=== PATIENT | female | born 1935 | race Caucasian/White ===

== ENCOUNTER 2024-02-07 03:58 | Inpatient (IN) | payer MEDICARE, OTHER, SELFPAY ==
[2024-02-07] VITALS (7 sets, daily range): BP systolic 118–159; BP diastolic 67–107; BMI 33.2; BMI 32.8
--- NOTE | 2024-02-07 01:33 | ED.GENMED ---
History of Present Illness
General
Chief Complaint: Fainting Sensation
Time Seen by Provider: 02/07/24 01:33
History of Present Illness
History of Present Illness:
HPI: The patient was walking with family at their house and felt dizzy. She also had been having left hip pain for which daughter was given Advil. She fell to the ground and had dramatically worse left hip pain. There is some degree of chronic
shortness of breath but does not usually need oxygen. She does have a history of COPD and heart failure. Daughter was right there and states she did not strike her head.
EXAM:
GENERAL: Well appearing in no distress
CERVICAL SPINE: No midline c-spine tenderness with excellent AROM
HEAD: No evidence of craniofacial trauma
CHEST: No chest wall tenderness, normal heart sounds, device noted left anterior chest wall
LUNGS: Equal lung sounds, mild respiratory distress, decreased breath sounds equally
ABDOMEN: No abdominal tenderness, no peritoneal signs
EXTREMITIES: Markedly decreased active range of motion at the left hip, severe pain with passive range of motion at the left hip into rotation, left lower extremity is shortened
NEURO: Excellent strength all extremities, appropriate mental status, normal speech/language
TIME OF INITIAL ENCOUNTER: 1:30 AM
NUMBER AND COMPLEXITY OF PROBLEMS ADDRESSED AT THE ENCOUNTER
� Chronic conditions affecting care: CHF, COPD, aortic stenosis, atrial fibrillation
� Acute Exacerbation and/or Progression of Chronic Illness: This is an acute problem
� Differential Diagnosis includes: COPD exacerbation, hip fracture, volume overload
AMOUNT AND/OR COMPLEXITY OF DATA TO BE REVIEWED AND ANALYZED
� I performed an independent evaluation of and my interpretation is:
EKG: A paced, ventricular rate of 70
CT:
X-rays: X-ray of the chest shows cardiomegaly with some mild pulmonary vascular congestion, left hip x-ray shows femoral neck fracture with displacement
Laboratory Studies: CBC unremarkable
Other:
� Review of other/old records: Patient was admitted with COPD exacerbation was hypoxic at that time also related to COVID-19 this past July
� Clinical information was obtained by an independent historian: Spoke to family at bedside
� Prescriptions/Medications Considered but not given:
� Further testing considered but not performed:
RISK OF COMPLICATIONS AND/OR MORBIDITY OR MORTALITY OF PATIENT MANAGEMENT
� Social determinants of health affecting care: Lives at home with family
� Discussion with other providers: Notified Dr. Elba Shah and likely OR on Tuesday. Dr. Ivey for admission at 2:30 AM.
� Escalation of care including admission/observation vs risk of discharge considered: The patient is found to have a left-sided femoral neck fracture. CBC unremarkable. Although she is on Eliquis daughter states she did not
strike her head. Ordered morphine for pain. She is borderline hypoxic with decreased breath sounds and has history of COPD�DuoNeb was given.
Past History
Past History
ED Past Medical History: CAD, HTN, Hypercholesterolemia and Valvular disease
ED Past Surgical History: Cardiac
Patient has exhibited threatening behavior?: No
PSI?: No
Social History
Tobacco: Non-smoker
Alcohol: None
Drug: None
Phy Exam
Physical Exam
Physical Exam:
See HPI
Course
Orders/Labs/Results
Orders:
Orders
02/07/24 01:29
Hip, Left 2-3 Views [CR Hip - LT w/wo Pel 2-3 Vw*] Urgent
Comment:
Reason For Exam: pain s/p fall
Include a pelvis x-ray?: Yes
02/07/24 01:38
Ipratropium/Albuterol Sulfate [Duoneb] 3 ml INH R NOW ONE
CR Chest Single View Urgent
Reason For Exam: sob h/o copd
02/07/24 01:39
0.9% Sodium Chloride 500 ml [Nss] 500 ml IV BOLUS
02/07/24 01:40
Electrocardiogram (*1) Urgent
Reason for Study: Shortness of Breath
EKG- Treatment ONCE
02/07/24 01:45
Complete Blood Count/With Diff Urgent
02/07/24 02:19
Morphine Sulfate 2 mg IV NOW STA
Ondansetron Injectable [Zofran] 4 mg IV NOW STA
02/07/24 03:18
Basic Metabolic Panel Urgent
Magnesium Urgent
NT-proBNP Urgent
02/07/24 03:43
Admit/Transfer Patient As Directed
Co-Sign Provider:
Level of Care: Inpatient admission
Assign to:: Telemetry
Physician / Group: [facility]
Diagnosis: L Femur Fracture, Fall
Reason for Telemetry: Arrhythmia
Date to Stop Telemetry: 02/10/24
Time to Stop Telemetry: 11:00
Reason for Hospitalization: L Femur Fracture, Fall
Expected length of stay greater than two midnights?: Yes
ELOS- Estimated Length of Stay in days: 4
I certify the patient meets the requirements for IP care: Yes
02/07/24 03:45
Code Status As Directed
Resuscitation Status: Full Code
02/07/24 05:43
Albuterol Nebs [Ventolin Nebules] 2.5 mg INH R Q4HPRN PRN
Dextrose 50%-Water [Dextrose 50% Syringe] 12.5 grams IV [id number] PRN
Glucagon [GlucaGen] 1 mg IM PRN PRN
02/07/24 05:43
Bedside Glucose Monitoring As Directed
Frequency: AC&HS
Additional Instructions:: Change to q6h if pt on TPN, tube feeding or not eating
Bladder Scan As Directed
Follow Bladder Retention/Intermittent Cath Algorithm?: Yes
PRN if no void in __ hours: 6
Frequency: Per Retention Algorithm
If Bladder Scan Result >: 400
then:: Straight cath
EKG with chest pain [ECG as needed] As Directed
ECG as needed for:: Chest Pain
I/O [Intake/ Output] As Directed
Frequency: Per unit guidelines
Straight Cath As Directed
Frequency: Per Retention Algorithm
Additional Instructions: straight cath as needed per acute urinary retention algorithm for 24 hrs
Additional Instructions: for bladder scan greater than 400 mL
Venous Foot Pumps As Directed
Location: Bilateral feet
Vital Signs As Directed
Frequency: Per unit guidelines
Weight As Directed
Frequency: Daily
Incentive Spirometry [Rx Incentive Spirometry] [RESP] Routine
Frequency: q1h while awake
Oxygen Therapy [O2 Therapy] [RESP] Routine
Titrate/Wean O2 to maintain O2 sat greater than (%): 94
DX Deep Vein Thrombosis Video Routine
02/07/24 Breakfast
1800 calorie (15 carb) Diabetic
At Your Request: Non-Participating
02/07/24 07:00
Morphine Sulfate 2 mg IV Q4HPRN PRN
02/07/24 07:04
Basic Metabolic Panel IN AM
Complete Blood Count/No Diff IN AM
Glycohemoglobin (HgbA1c) IN AM
02/07/24 07:30
Insulin Aspart Corrective Low [Novolog Flexpen-Low Resistance] See Protocol SC AC
02/07/24 08:00
Acetaminophen [Tylenol] 1,000 mg PO TID
Budesonide [Pulmicort] 0.5 mg INH R BID
Docusate Sodium [Colace] 100 mg PO BID
Ipratropium/Albuterol Sulfate [Duoneb] 3 ml INH R QID
Metoprolol Xl [Toprol Xl] 25 mg PO BID
Polyethylene Glycol Powder [Miralax] 17 grams PO DAILY PRN
Potassium Chloride [KCl] 20 meq PO BID
02/07/24 16:00
Furosemide [Lasix] 20 mg PO BID@0800,1600
02/07/24 18:00
Montelukast Sodium [Singulair] 10 mg PO QPM
02/07/24 22:00
Sennosides [Senokot] 17.2 mg PO HS
02/10/24 11:00
DC Protocol for Telemetry ONCE
Abnormal Lab Results
02/07/24 02/07/24
01:45 03:18
RDW 15.3 H %
(11.5-14.5)
MPV 11.2 H fL
(7.4-10.4)
Abs Immat Gran (auto) 0.1 H 10^3/uL
(0-0.05)
Absolute Lymphs (auto) 1.0 L 10^3/uL
(1.2-3.4)
Immature Gran % 1.1 H %
(0-0.5)
Lymphocytes % 15.9 L %
(20.5-51.1)
Chloride 108 H mmol/L
(98-107)
BUN 27 H mg/dl
(7-17)
Glucose 146 H mg/dl
(70-99)
02/07/24 01:45
02/07/24 03:18
Vital Signs
Initial and Last Documented VS:
Initial Vital Signs
Temp Pulse Resp BP Pulse Ox
94.8 F L 70 22 159/107 94
02/07/24 01:31 02/07/24 01:31 02/07/24 01:31 02/07/24 01:31 02/07/24 01:31
Last Documented Vital Signs
Temp Pulse Resp BP Pulse Ox
97.6 F 77 18 134/75 96
02/09/24 07:20 02/09/24 08:06 02/09/24 08:06 02/09/24 07:20 02/09/24 08:06
*Critical Care Note
Total Time (30-74mins, 75-104mins- exclusive of procedures): Not Applicable
ED Attending Note
-
Portions of this chart may have been created with voice recognition software.� Occasional wrong word or��sound alike� substitutions may have occurred due to the inherent limitations of voice recognition software.
Discharge Plan
Departure
Patient Disposition: Admit
Date of Disposition: 02/07/24
Time of Disposition: 02:30
Presentation/result/management discussed w/ accepting MD/DO: Hospitalist
Discharge Problem:
Closed fracture of left hip
Interventions
Interventions:
*Risk Screen - Suicide Last Done: 02/07/24 05:45
*General Assessment Last Done: 02/07/24 01:31
*Neglect/Abuse Screening Last Done: 02/07/24 01:31
ED- Fall Risk Assessment Last Done: 02/07/24 01:41
*ED COVID-19 Vaccine History Last Done: 02/07/24 01:41
*Nursing Disposition Last Done: 02/07/24 05:30
ED- Cardiac Assessment Last Done: 02/07/24 02:54
ED- Neurological Assessment Last Done: 02/07/24 02:54
Discharge Date and Time
Discharge Date/Time: 02/07/24 05:30
[2024-02-07 01:51] LABS: % Basophils 1.1 % (0-2); % Eosinophils 1.4 % (0-6); % Immature Granulocytes 1.1 % (0-0.5); % Lymphocytes 15.9 % (20.5-51.1); % Monocytes 6.1 % (1.7-9.3); % Neutrophils 74.4 % (42.2-75.2); Absolute Basophils 0.1 10^3/uL (0-0.2); Absolute Eosinophils 0.1 10^3/uL (0-0.7); Absolute Immature Granulocytes 0.1 10^3/uL (0-0.05); Absolute Monocytes 0.4 10^3/uL (0.1-0.6); Absolute Neutrophils 4.8 10^3/uL (1.4-6.5); Hematocrit 41.8 % (37.0-47.0); Hemoglobin 14.2 g/dL (12.0-16.0); Mean Corpuscular Hgb 29.8 pg (27.0-31.0); Mean Corpuscular Volume 87.6 fL (81.0-99.0); Mean Platelet Volume 11.2 fL (7.4-10.4); Nucleated Red Blood Cells % 0 %; Platelet Count 178 10^3/uL (130-400); Red Blood Cell Count 4.77 10^6/uL (4.20-5.40); Red Cell Dist. Width 15.3 % (11.5-14.5); White Blood Cell Count 6.4 10^3/uL (4.8-10.8)
--- NOTE | 2024-02-07 02:55 | HPS.HSE ---
Family Physician
-
Family Physician: Matthieu Isaac
Chief Complaint
-
L Hip Pain s/p Fall
History of Present Illness
Patient is an 88y F with PMH significant for COPD, ASCVD, DM-II and obesity who presents to ED complaining of left hip pain s/p fall at home this evening. History obtained from patient and family at the bedside with family serving as
spanish medical interpreter. Family states that patient has been complaining of discomfort in the L hip / buttock region for the past 2 days or so. This evening she was ambulating from the bathroom when she lost her balance and fell to the L. Daughter was
present and helped to an extent such that patient did not fall very hard to the ground. She did not strike her head or lose consciousness. She did land on her L side / hip and immediately complained of pain in this area.
Daughter notes that patient was pale appearing and sweaty after the fall.
She denies any recent issues with fevers / chills, N/V/D or complaints.
Patient has been complaining of increased SOB over the past week or so. Her weight has not changed and she has no significant cough or other symptoms.
Medical History
Past Medical History
Past Medical History: Reports Other
Additional Past Medical History:
ASCVD
Chronic HFrEF
Paroxysmal Atrial Fibrillation
s/p TAVR
Hypertension
COPD
DM-II
CKD III
Obesity
Non-Melanoma Skin Cancer
Past Surgical History: Reports Other
Additional Past Surgical History:
TAVR
PPM Placement
PTCA with Stents
Bilateral TKA
Appendectomy
Skin Cancer Excision
Social History
Tobacco: Non-smoker
Alcohol: None
Drug: None
Family History
Family History: Not pertinent
Allergies / Home Medications
Allergies reflects when Allergies were last updated in [facility].
Home Medications with original date entered in [facility]
Allergy/Medication List:
Allergies
Allergy/AdvReac Type Severity Reaction Status Date / Time
dapagliflozin [From [facility]] Allergy Blisters Verified 02/07/24 01:30
latex Allergy Rash Verified 02/07/24 01:30
Penicillins Allergy Passed out Verified 02/07/24 01:30
Home Medications
yseutp-ztoezjze-ujywcdg 36,000-114,000-180,000 unit capsule,delay rel (Creon) 1 cap PO QPM Gastrointestinal issue 05/30/22
glipizide 5 mg tablet 5 mg PO . AND TUESDAY Diabetes 12/22/22
albuterol sulfate 90 mcg/actuation breath activated powder inhaler 2 inh inhalation R Q6 PRN sob/wheezing 08/12/23
budesonide 0.5 mg/2 mL suspension for nebulization (Pulmicort) 0.5 mg inhalation BID Lung/Breathing Issues 08/12/23
furosemide 20 mg tablet 20 mg PO BID Fluid Retention/Swelling 08/12/23
levocetirizine 5 mg tablet 5 mg PO QPM Allergies 08/12/23
montelukast 10 mg tablet 10 mg PO QPM Lung/Breathing Issues 08/12/23
potassium chloride 10 mEq capsule,extended release 20 meq PO BID Electrolyte Repletion 08/12/23
simvastatin 40 mg tablet 40 mg PO .QPM AND TUESDAY High Cholesterol 08/12/23
apixaban 5 mg tablet (Eliquis) 2.5 mg PO BID Blood clot prevention/tx 02/07/24
metoprolol succinate 50 mg tablet,extended release 24 hr 25 mg PO BID Blood pressure 02/07/24
Review of Systems
-
History Source: Patient
A 12 point ROS was completed and negative except as noted: Yes
Constitutional: Denies Fever or Chills
Respiratory: Reports Trouble Breathing; Denies Cough
Cardiac: Denies Chest Pain or Palpitations
Abdomen/GI: Denies Abdominal Pain, Nausea, Vomiting or Diarrhea
: Denies Dysuria or Frequency
Musculoskeletal: Reports Joint Pain
Neurological: Reports Dizzy
Psych: Denies Depression or Anxiety
Physical Exam
Vital Signs
Vital Signs
Temp Pulse Resp BP Pulse Ox
94.8 F L 70 22 159/107 94
02/07/24 01:31 02/07/24 01:31 02/07/24 01:31 02/07/24 01:31 02/07/24 01:31
Physical Exam
General: Other (88y F in mild distress due to pain.)
HEENT: Moist mucous membranes, PERRLA and Other (No JVD.)
Respiratory: Other (Decreased BS at bases - otherwise clear. No wheezing or rales.)
Cardiac: S1/S2, Regular Rhythm and Murmur (II/ MARY)
GI: Soft, Non Tender, Non Distended and Normal Bowel Sounds
Musculoskeletal: Other (LLE externally rotated. Tenderness L hip / groin.)
Neuro: Awake and Alert
Laboratory Results
-
02/07/24 01:45
Impression/Plan
-
A/P: Patient is an 88y F with PMH significant for ASCVD, CKD and DM-II who presents to ED complaining of L hip pain s/p fall.
Left Femur Fracture
- Admit for further evaluation and treatment.
- Pain control / bedrest overnight.
- Ortho eval in the AM for operative repair.
- Hold Eliquis.
- Patient is at increased risk for complications related to surgery / anesthesia on the basis of advanced age and multiple medical comorbidities.
- However, benefits of the planned procedure outweigh the potential risks and patient is OK to proceed to OR without additional pre-op evaluation(s).
- Post-OP PT, OT, DVT prophylaxis, etc.
Fall at Home
- Unclear mechanism of fall based on history.
- Described diaphoresis / clamminess after the fall may have been on the basis of pain?
- Monitor on tele overnight.
- Monitor for any new / recurrent symptoms.
ASCVD
Paroxysmal A-Fib
Severe s/p TAVR
- Stable. Continue current CV med regimen excepting Eliquis.
- Follow for any complaints of chest pain, etc.
Chronic HFrEF
- Stable. Patient does not appear grossly volume overloaded.
- Daughter notes that her daily weights at home have remained stable.
- Continues usual diuretic regimen.
- Follow I/Os, daily weights, etc.
COPD
- No evidence of acute exacerbation / no active wheezing.
- Patient with increased subjective dyspnea recently - ? mild HF v COPD.
- Nebs ATC and PRN.
- Follow for any new / worsening symptoms.
DM-II
- Stable. Hold PO medications (only on glipizide twice weekly?)
- Follow glucose and cover with SSI as needed.
- Update A1C.
Constipation
- Patient with noted rectal stool ball on pelvic imaging.
- Bowel regimen.
- Avoid disimpaction / enemas for now given femur fracture.
- Follow for positive results.
DVT Prophylaxis; Foot Pumps
Code Status: Full
[2024-02-07] MEDS: ZOFRAN 4 MG IV (03:10)
[2024-02-07] MEDS: MORPHINE SULFATE 2 MG IV ×2 (03:10→07:20)
[2024-02-07] MEDS: DUONEB 3 ML INH ×5 (03:16→19:39)
[2024-02-07] MEDS: NSS 500 IV (03:16)
[2024-02-07 03:51] LABS: Blood Urea Nitrogen 27 mg/dl (7-17); Calcium 8.8 mg/dl (8.4-10.2); Carbon Dioxide 28 mmol/L (22-30); Chloride 108 mmol/L (98-107); Estimated Creatinine Clearance 36 ml/min; Glucose 146 mg/dl (70-99); Potassium 3.8 mmol/L (3.5-5.1); Sodium 141 mmol/L (135-145); eGFR 54.19
[2024-02-07 04:08] LABS: NT-proBNP 13200 pg/ml
[2024-02-07] MEDS: LASIX 20 MG IV (04:54)
--- NOTE | 2024-02-07 05:45 | PTCARENOTE ---
Pt arrived 2S via stretcher at 0545 from ED. 4 L O2. Assist x3 tack puller machine from stretcher. Pt is Barbadian speaking only. Daughter is at the bedside, and was able to assist in admission questions. Pt lives with daughter in an apartment.
--- NOTE | 2024-02-07 05:46 | W.PN.UPDATE ---
Update Note
Progress Note Update
With Left femoral neck fracture
Will need left hip partial replacement
Due to Eliquis will delay surgery until tomorrow
Please hold eliquis effective immediately
Thanks
GGMD
[2024-02-07 07:26] LABS: Hematocrit 43.8 % (37.0-47.0); Mean Corpuscular Hgb 29.2 pg (27.0-31.0); Mean Corpuscular Volume 91.4 fL (81.0-99.0); Mean Platelet Volume 11.7 fL (7.4-10.4); Platelet Count 134 10^3/uL (130-400); Red Blood Cell Count 4.79 10^6/uL (4.20-5.40); Red Cell Dist. Width 15.3 % (11.5-14.5); White Blood Cell Count 10.3 10^3/uL (4.8-10.8)
[2024-02-07] MEDS: PULMICORT 0.5 MG INH ×2 (08:08→19:39)
[2024-02-07 08:10] LABS: Blood Urea Nitrogen 26 mg/dl (7-17); Calcium 8.7 mg/dl (8.4-10.2); Carbon Dioxide 30 mmol/L (22-30); Chloride 106 mmol/L (98-107); Estimated Creatinine Clearance 32 ml/min; Glucose 138 mg/dl (70-99); Potassium 3.8 mmol/L (3.5-5.1); Sodium 143 mmol/L (135-145); eGFR 48.33
[2024-02-07 08:23] LABS: Glucose - Point of Care 173 mg/dl (70-99)
[2024-02-07 08:39] LABS: Glycohemoglobin (HgbA1c) 6.4 % (4.0-5.6)
[2024-02-07] MEDS: TOPROL XL 25 MG PO ×2 (09:37→20:55)
[2024-02-07] MEDS: KCL 20 MEQ PO ×2 (09:38→20:54)
[2024-02-07] MEDS: COLACE 100 MG PO ×2 (09:39→22:12)
[2024-02-07] MEDS: NOVOLOG FLEXPEN-LOW RESISTANCE SC ×2 (09:59→12:02)
[2024-02-07] MEDS: TYLENOL 1000 MG PO ×3 (10:00→22:12)
[2024-02-07 11:33] LABS: Glucose - Point of Care 142 mg/dl (70-99)
--- NOTE | 2024-02-07 16:11 | W.PN.HOSP.TC ---
Today's Communication/Plan
-
Hold Eliquis anticipating hip surgery in AM.
Monitor volume status closely
Monitor renal function.
Adjust analgesic regimen as required.
Assessment / Plan
Assessment / Plan
Impression:
Patient is an 88y F with PMH significant for ASCVD, CKD and DM-II who presents to ED complaining of L hip pain s/p fall.
Left hip fracture secondary to mechanical fall and osteoporosis
Status post mechanical fall at home
Conditions prior to admission:
1. Severe aortic stenosis status post TAVR.
2. Chronic CHF, reduced EF.
3. Paroxysmal atrial fibrillation.
4. Anticoagulation with Eliquis.
5. Sick sinus syndrome with pacemaker in place.
6. Severe COPD.
7. CAD.
8. Essential hypertension.
9. Diabetes type 2.
10. Dyslipidemia.
11. COVID-19
Plan
Left Femur Fracture
- Admit for further evaluation and treatment.
- Pain control / bedrest overnight.
- Ortho eval in the AM for operative repair.
- Hold Eliquis.
- Patient is at increased risk for complications related to surgery / anesthesia on the basis of advanced age and multiple medical comorbidities.
- However, benefits of the planned procedure outweigh the potential risks and patient is OK to proceed to OR without additional pre-op evaluation(s).
- Post-OP PT, OT, DVT prophylaxis, etc.
Fall at Home
- Unclear mechanism of fall based on history.
- Described diaphoresis / clamminess after the fall may have been on the basis of pain?
- Monitor on tele overnight.
- Monitor for any new / recurrent symptoms.
ASCVD
Paroxysmal A-Fib
Severe s/p TAVR
- Stable. Continue current CV med regimen excepting Eliquis.
- Follow for any complaints of chest pain, etc.
Chronic HFrEF
- Stable. Patient does not appear grossly volume overloaded.
- Daughter notes that her daily weights at home have remained stable.
- Continues usual diuretic regimen.
- Follow I/Os, daily weights, etc.
COPD
- No evidence of acute exacerbation / no active wheezing.
- Patient with increased subjective dyspnea recently - ? mild HF v COPD.
- Nebs ATC and PRN.
- Follow for any new / worsening symptoms.
DM-II
- Stable. Hold PO medications (only on glipizide twice weekly?)
- Follow glucose and cover with SSI as needed.
- Hemoglobin A1c 6.4
Constipation
- Patient with noted rectal stool ball on pelvic imaging.
- Bowel regimen.
- Avoid disimpaction / enemas for now given femur fracture.
- Follow for positive results.
DVT Prophylaxis; Foot Pumps
Code Status: Full
Anticipated Discharge: 24 - 48 hours
Subjective/Interval History
-
Date of Service: February 07, 2024
Objective Data
-
Labs:
Laboratory Results
02/07/24
07:04
WBC 10.3
Hgb 14.0
Hct 43.8
Plt Count 134 D
Sodium 143
Potassium 3.8
Chloride 106
Carbon Dioxide 30
BUN 26 H
Creatinine 1.1 H
Glucose 138 H
Calcium 8.7
Vital Signs:
Vital Signs
Temp Pulse Resp BP Pulse Ox
98.1 F 70 18 124/70 95
02/07/24 15:10 02/07/24 16:04 02/07/24 16:04 02/07/24 15:10 02/07/24 16:04
Physical Exam
-
General: Well Developed and No Apparent Distress
HEENT: Normocephalic, Atraumatic and Moist Mucous Membranes
Respiratory: Rhonchi; Negative Wheezes
Cardiac: Regular Rhythm and S1/S2; Negative Murmur, Rub or Gallop
GI: Soft, Nontender, Nondistended and Normal Bowel Sounds; Negative Organomegaly
Rectal: Deferred by Provider
Musculoskeletal: No Clubbing, No Cyanosis and No Edema
Skin: Negative Rash
Neuro: Awake, Alert, Oriented (Name only) and Nonfocal/Grossly Intact
--- NOTE | 2024-02-07 16:17 | CM ---
Met with patient for initial assessment. Patient only speaks Argentine and has some apparent confusion. Reportedly, daughter was in hospital since 1:30 am in ER. She went home to get some sleep and will return today. This CM did not want to disturb
daughter at home. Will check to see if daughter returned prior to CM leaving.
[2024-02-07] MEDS: LASIX 20 MG PO (16:35)
[2024-02-07 17:01] LABS: Glucose - Point of Care 214 mg/dl (70-99)
--- NOTE | 2024-02-07 17:13 | CM ---
Addendum entered by Chris Mathur 02/07/24 17:18:
[facility] is [facility] in [place] and PCP is Dr. Matthieu Isaac.
Original Note:
Met with daughter and completed initial assessment. Patient has been living with daughter and S-I-L for approximately 3 years. They live in a 1 story 3rd floor condo with no stairs to enter, elevator building. Patient uses a RW for mobility, no
in-home services. 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 [employer] WHEEL [employer]SEM[employer] patient required assistance with ADL's. Anticipate SNF after discharge. [employer] [place] [id number].
[2024-02-07] MEDS: SINGULAIR 10 MG PO (17:34)
[2024-02-07 17:48] LABS: Glucose - Point of Care 209 mg/dl (70-99)
[2024-02-07] MEDS: NOVOLOG FLEXPEN-LOW RESISTANCE 2 UNITS SC (17:48)
[2024-02-07] MEDS: LUMIGAN 0.01% 1 DROP OPHTH (20:55)
[2024-02-07] MEDS: COSOPT EYE DROPS 1 DROP OPHTH (20:55)
[2024-02-07] MEDS: PRED FORTE 1% EYE DROPS 2 DROP OPHTH (20:56)
[2024-02-07 21:25] LABS: Glucose - Point of Care 183 mg/dl (70-99)
[2024-02-07] MEDS: SENOKOT 17.1999999999999993 MG PO (22:12)
[2024-02-08] VITALS (10 sets, daily range): BP systolic 100–163; BP diastolic 65–93; BMI 33.7
--- NOTE | 2024-02-08 03:46 | DOWNTIME ---
There was a [employer] Client [employer] Operator Downtime on 02/08/2024 from 0100 to 02/08/2024 at 0337. Downtime documentation of patient's care, including medication administrations, has been reconciled in the electronic record per guidelines. Refer to the
patient's paper chart under the miscellaneous tab to see printed paper medication records and downtime forms.
--- NOTE | 2024-02-08 04:51 | PTCARENOTE ---
bladder scanned for decreased urine output 167ML. pt with scant amount of [place] urine in suction cansiter from purewick with one episode of small void on disposable pad.
[2024-02-08 05:15] LABS: Glucose - Point of Care 161 mg/dl (70-99)
[2024-02-08] MEDS: NOVOLOG FLEXPEN-LOW RESISTANCE 1 UNITS SC ×2 (05:57→12:05)
[2024-02-08] MEDS: DUONEB 3 ML INH ×3 (06:17→19:08)
[2024-02-08] MEDS: PULMICORT 0.5 MG INH ×2 (06:17→19:14)
[2024-02-08 08:13] LABS: % Basophils 0.8 % (0-2); % Eosinophils 5.4 % (0-6); % Immature Granulocytes 0.4 % (0-0.5); % Lymphocytes 7.2 % (20.5-51.1); % Neutrophils 82.2 % (42.2-75.2); Absolute Basophils 0.1 10^3/uL (0-0.2); Absolute Eosinophils 0.5 10^3/uL (0-0.7); Absolute Lymphocytes 0.7 10^3/uL (1.2-3.4); Absolute Monocytes 0.4 10^3/uL (0.1-0.6); Absolute Neutrophils 7.5 10^3/uL (1.4-6.5); Hemoglobin 13.9 g/dL (12.0-16.0); Mean Corp Hgb Conc. 32.3 g/dL (33.0-37.0); Mean Corpuscular Hgb 29.8 pg (27.0-31.0); Mean Corpuscular Volume 92.1 fL (81.0-99.0); Mean Platelet Volume 12.4 fL (7.4-10.4); Nucleated Red Blood Cells % 0 %; Platelet Count 124 10^3/uL (130-400); Red Blood Cell Count 4.67 10^6/uL (4.20-5.40); White Blood Cell Count 9.2 10^3/uL (4.8-10.8)
[2024-02-08] MEDS: TYLENOL 1000 MG PO ×2 (08:38→21:37)
[2024-02-08] MEDS: KCL 20 MEQ PO (08:38)
[2024-02-08] MEDS: COLACE 100 MG PO ×2 (08:38→21:33)
[2024-02-08] MEDS: TOPROL XL 25 MG PO (08:38)
--- NOTE | 2024-02-08 09:08 | W.PN.HOSP.TC ---
Today's Communication/Plan
-
benefits of the planned procedure outweigh the potential risks and patient is OK to proceed to OR without additional pre-op evaluation(s).
Revised cardiac risk index RCRI:
� Intermediate risk surgery.
� Independent predictors of major cardiac complications: Heart failure, diabetes.
� Rate for major cardiac complications: 2.4-5.4%
Respiratory and volume status optimized for surgical intervention
Risk and benefits of surgical intervention discussed with patient's daughter at the bedside
Assessment / Plan
Assessment / Plan
Impression:
Patient is an 88y F with PMH significant for ASCVD, CKD and DM-II who presents to ED complaining of L hip pain s/p fall.
Left hip fracture secondary to mechanical fall and osteoporosis
Status post mechanical fall at home
Acute on chronic CHF reduced EF
Acute hypoxic respiratory failure secondary to above
Conditions prior to admission:
1. Severe aortic stenosis status post TAVR.
2. Chronic CHF, reduced EF.
3. Paroxysmal atrial fibrillation.
4. Anticoagulation with Eliquis.
5. Sick sinus syndrome with pacemaker in place.
6. Severe COPD.
7. CAD.
8. Essential hypertension.
9. Diabetes type 2.
10. Dyslipidemia.
11. COVID-19
Plan
Left Femur Fracture
- Admit for further evaluation and treatment.
- Pain control / bedrest overnight.
- Ortho eval in the AM for operative repair.
- Hold Eliquis.
- Patient is at increased risk for complications related to surgery / anesthesia on the basis of advanced age and multiple medical comorbidities.
- However, benefits of the planned procedure outweigh the potential risks and patient is OK to proceed to OR without additional pre-op evaluation(s).
Revised cardiac risk index RCRI:
� Intermediate risk surgery.
� Independent predictors of major cardiac complications: Heart failure, diabetes.
� Rate for major cardiac complications between 2.4-5.4%
� Volume and respiratory status optimized for surgical intervention.
Fall at Home
- Unclear mechanism of fall based on history.
- Described diaphoresis / clamminess after the fall may have been on the basis of pain?
- Monitor on tele overnight.
- Monitor for any new / recurrent symptoms.
ASCVD
Paroxysmal A-Fib
Severe s/p TAVR
- Stable. Continue current CV med regimen excepting Eliquis.
- Follow for any complaints of chest pain, etc.
Acute on chronic chronic HFrEF
Pulmonary edema
Acute hypoxic respiratory failure secondary to above
Exam with bilateral rails
Chest x-ray with increased vascularity bilaterally consistent with pulmonary edema
Patient is not on home O2, although has increased oxygen requirements up to 2 L
She was given additional dose of IV Lasix on 02/06.
Continue oral Lasix as scheduled.
Volume and respiratory status optimized for surgical intervention.
COPD
- No evidence of acute exacerbation / no active wheezing.
- Patient with increased subjective dyspnea recently - ? mild HF v COPD.
- Nebs ATC and PRN.
- Follow for any new / worsening symptoms.
DM-II
- Stable. Hold PO medications (only on glipizide twice weekly?)
- Follow glucose and cover with SSI as needed.
- Hemoglobin A1c 6.4
Constipation
- Patient with noted rectal stool ball on pelvic imaging.
- Bowel regimen.
- Avoid disimpaction / enemas for now given femur fracture.
- Follow for positive results.
DVT Prophylaxis; Foot Pumps
Code Status: Full
Anticipated Discharge: > 48 hours
Subjective/Interval History
-
Date of Service: February 08, 2024
Objective Data
-
Labs:
Laboratory Results
02/08/24
06:54
WBC 9.2
Hgb 13.9
Hct 43.0
Plt Count 124 L
Sodium Pending
Potassium Pending
Chloride Pending
Carbon Dioxide Pending
BUN Pending
Creatinine Pending
Glucose Pending
Calcium Pending
Vital Signs:
Vital Signs
Temp Pulse Resp BP Pulse Ox
98.6 F 72 14 163/89 97
02/08/24 07:33 02/08/24 07:33 02/08/24 07:33 02/08/24 07:33 02/08/24 07:33
I&O
02/07/24 02/08/24 02/09/24
06:59 06:59 06:59
Intake Total 1140 / 1140
Output Total 500 / 500
Balance 640 / 640
Physical Exam
-
General: Well Developed and No Apparent Distress
HEENT: Normocephalic, Atraumatic and Moist Mucous Membranes
Respiratory: Rhonchi; Negative Wheezes
Cardiac: Regular Rhythm and S1/S2; Negative Murmur, Rub or Gallop
GI: Soft, Nontender, Nondistended and Normal Bowel Sounds; Negative Organomegaly
Rectal: Deferred by Provider
Musculoskeletal: No Clubbing, No Cyanosis and No Edema
Skin: Negative Rash
Neuro: Awake, Alert, Oriented (Name only) and Nonfocal/Grossly Intact
[2024-02-08] MEDS: LASIX 20 MG PO (09:24)
[2024-02-08 09:48] LABS: Blood Urea Nitrogen 37 mg/dl (7-17); Carbon Dioxide 24 mmol/L (22-30); Chloride 106 mmol/L (98-107); Estimated Creatinine Clearance 19 ml/min; Glucose 132 mg/dl (70-99); Potassium 4.1 mmol/L (3.5-5.1); Sodium 139 mmol/L (135-145); eGFR 25.08
--- NOTE | 2024-02-08 10:16 | PN.CDI ---
CDI
- -
CDI:
Physician Documentation Request
Admit Date: 02/07/24 03:58
Dear Doctor Emery,
H&P list patient has a past medical history of CKD III.
Patient diagnosed with acute on chronic CHF with IV lasix given on 02/06.
Creatinine results:
Laboratory Tests
02/07/24 02/07/24 02/08/24
03:18 07:04 06:54
Creatinine 1.0 1.1 H 1.9 H
Please clarify which of the following accurately represents the patient's renal status:
____ - Acute kidney injury on CKD III
____ - CKD III only
____ - Other
Criteria for JAVIER*
1 Increase in serum creatinine by > or = to 0.3 mg/dL (> or = to 26.5 micromol/L) within 48 hours, OR
2 Increase in serum creatinine to > or = to 1.5 times baseline, which is known or presumed to have occurred within 7 days, OR
3 Urine volume < 0.5 nL/kg/hour for six hours
Use of terms such as suspected, likely, concern for, or probable (associated with a specific diagnosis that is being evaluated, monitored, or treated as if it exists) are acceptable and can be coded in the inpatient setting, when documented at the
time of discharge.
Thank you,
Emilia Arana RN, BSN
CDI Specialist
tiger text
Please use your independent medical judgment in providing your response.
*Source: Kidney Disease: Improving Global Outcomes (KDIGO) 2012
--- NOTE | 2024-02-08 10:20 | PN.CDI ---
CDI
- -
CDI:
Physician Documentation Request
Admit Date: 02/07/24 03:58
Dear Doctor Emery,
02/07 progress notes states ' Acute on chronic HFrEF. Pulmonary edema, acute hypoxic respiratory failure secondary to above.... patient is not on home O2, although has increased oxygen requirements up to 2 L'
Recognized standard criteria for respiratory failure includes:
(Source: [employer] Hospitalist Jun 2013)
ABGs (1 or more)
�PO2 <60 or RA SpO2 <91%
�PcO2 >50 and pH <7.35
�pO2 decrease or pcO2 increase by 10 mmHg from baseline if known Symptoms:
�Tachypnea, SOB, dyspnea
�Pallor or cyanosis
�Anxiety or restlessness
�Use of accessory muscles
�Retractions (grunting in newborns)
�Unable to speak in complete sentences
Supplemental O2 requirement of 40% (5LPM) or more Intubation is not required
Based on the above information and the recognized standard for respiratory failure could you please verify this diagnoses is still accurate and reflective of the patient�s condition to ensure quality of the medical record.
Please clarify in the Progress Notes:
�Respiratory failure is/was present and is a clinical diagnosis based on (please include this additional support in the medical record)
�After study respiratory failure has been ruled out
�Other
Use of terms such as suspected, likely, concern for, or probable (associated with a specific diagnosis that is being evaluated, monitored, or treated as if it exists) are acceptable and can be coded in the inpatient setting, when documented at the
time of discharge.
Thank you,
Emilia Arana RN, BSN
CDI Specialist
tiger text
Please use your independent medical judgment in providing your response.
--- NOTE | 2024-02-08 11:02 | CM ---
Met with patient's daughter at the bedside to discuss discharge planning. Per RN and patient's daughter, patient is going to surgery today
[facility] [address] IMM benefit explained; form signed @[phone]
Daughter's rehab preference is [facility]. If patient does not meet Acute Rehab criteria, SNF preferences are [facility], [facility] and [facility]; referrals sent via [facility]
[2024-02-08 12:03] LABS: Glucose - Point of Care 162 mg/dl (70-99)
[2024-02-08] MEDS: DUONEB INH (15:05)
[2024-02-08] MEDS: TYLENOL PO (16:00)
[2024-02-08 16:08] LABS: Glucose - Point of Care 122 mg/dl (70-99)
[2024-02-08] MEDS: NOVOLOG FLEXPEN-LOW RESISTANCE SC (18:30)
[2024-02-08 18:41] LABS: Glucose - Point of Care 157 mg/dl (70-99)
[2024-02-08] MEDS: SINGULAIR PO (20:00)
[2024-02-08] MEDS: KCL PO (20:00)
[2024-02-08] MEDS: LASIX PO (20:00)
[2024-02-08] MEDS: ELIQUIS 2.5 MG PO (21:34)
[2024-02-08] MEDS: LOPRESSOR 25 MG PO (21:35)
[2024-02-08] MEDS: LEXAPRO 10 MG PO (21:36)
[2024-02-08] MEDS: SENOKOT 17.1999999999999993 MG PO (21:36)
[2024-02-08] MEDS: PRED FORTE 1% EYE DROPS 2 DROP OPHTH (21:37)
[2024-02-08] MEDS: LUMIGAN 0.01% 1 DROP OPHTH (21:39)
[2024-02-08] MEDS: COSOPT EYE DROPS 1 DROP OPHTH (21:39)
--- NOTE | 2024-02-08 22:00 | PTCARENOTE ---
At 20:35 patient arrived from PACU on 2L O2, telemetry, Aquacell on (L) hip c/d/i; Telephone report from MEDICINE TEACHER [place] had included (L) breast excoration/dry/pink, upon assessment MASD and flat blister noted; Tylor Segovia notified as daughter
at bedside and requested additional examination; REI examined and ordered Miconazole Nitrate Antifungal cream to apply topically under left breast.
[2024-02-08] MEDS: KCL 10 MEQ PO (22:28)
[2024-02-08] MEDS: ANTIFUNGAL CLEAR 1 APPLIC TOPICAL (22:28)
[2024-02-08 22:35] LABS: Glucose - Point of Care 285 mg/dl (70-99)
[2024-02-08] MEDS: CLEOCIN 50 IV (22:43)
[2024-02-09] VITALS (9 sets, daily range): BP systolic 101–152; BP diastolic 61–93; PULSE 70–74; O2SAT 96; BMI 33.7
[2024-02-09] MEDS: CLEOCIN 50 IV ×3 (04:19→16:12)
[2024-02-09] MEDS: MORPHINE SULFATE 2 MG IV (05:27)
[2024-02-09 06:31] LABS: Hematocrit 39.2 % (37.0-47.0); Hemoglobin 12.4 g/dL (12.0-16.0)
[2024-02-09 07:01] LABS: Blood Urea Nitrogen 42 mg/dl (7-17); Carbon Dioxide 22 mmol/L (22-30); Chloride 106 mmol/L (98-107); Estimated Creatinine Clearance 28 ml/min; Glucose 196 mg/dl (70-99); Potassium 4.5 mmol/L (3.5-5.1); Sodium 137 mmol/L (135-145); eGFR 39.55
[2024-02-09 07:18] LABS: Glucose - Point of Care 169 mg/dl (70-99)
--- NOTE | 2024-02-09 07:48 | W.PN.HOSP.TC ---
Today's Communication/Plan
-
pt/ot
wean o2, cont lasix
Resume Eliquis
monitor hgb
Assessment / Plan
Assessment / Plan
Impression:
Patient is an 88y F with PMH significant for ASCVD, CKD and DM-II who presents to ED complaining of L hip pain s/p fall.
Left hip fracture secondary to mechanical fall and osteoporosis
Status post mechanical fall at home
Acute on chronic CHF reduced EF
Acute hypoxic respiratory failure secondary to above
Conditions prior to admission:
1. Severe aortic stenosis status post TAVR.
2. Chronic CHF, reduced EF.
3. Paroxysmal atrial fibrillation.
4. Anticoagulation with Eliquis.
5. Sick sinus syndrome with pacemaker in place.
6. Severe COPD.
7. CAD.
8. Essential hypertension.
9. Diabetes type 2.
10. Dyslipidemia.
11. COVID-19
Plan
Mechanical Fall
Left Femur Fracture
S/p Lip Hip Replacement
-PT/OT
-Resume Eliquis
-Incentive [place], Acapella
-Monitor HgB
Fall at Home
- Unclear mechanism of fall based on history.
- Described diaphoresis / clamminess after the fall may have been on the basis of pain?
- Monitor on tele overnight.
- Monitor for any new / recurrent symptoms.
ASCVD
Paroxysmal A-Fib
Severe s/p TAVR
- Stable. Continue current CV med regimen excepting Eliquis.
- Follow for any complaints of chest pain, etc.
Acute on chronic chronic HFrEF
Pulmonary edema
Acute hypoxic respiratory failure secondary to above
Improved respiratory status
Chest x-ray with increased vascularity bilaterally consistent with pulmonary edema
Patient is not on home O2, although has increased oxygen requirements up to 2 L; wean o2 as tolerated
She was given additional dose of IV Lasix on 02/06.
Continue oral Lasix as scheduled.
Volume and respiratory status optimized for surgical intervention.
JAVIER
-resolved
COPD
- No evidence of acute exacerbation / no active wheezing.
- Patient with increased subjective dyspnea recently - ? mild HF v COPD.
- Nebs ATC and PRN.
- Follow for any new / worsening symptoms.
DM-II
- Stable. Hold PO medications (only on glipizide twice weekly?)
- Follow glucose and cover with SSI as needed.
- Hemoglobin A1c 6.4
Constipation
- Patient with noted rectal stool ball on pelvic imaging.
- Bowel regimen.
- Avoid disimpaction / enemas for now given femur fracture.
- Follow for positive results.
DVT Prophylaxis; Foot Pumps
Code Status: Full
Anticipated Discharge: Within 24 hours
Subjective/Interval History
-
Date of Service: February 09, 2024
No acute events overnight, has some pain being controlled by opiates
Objective Data
-
Labs:
Laboratory Results
02/09/24
04:59
Hgb 12.4
Hct 39.2
Sodium 137
Potassium 4.5
Chloride 106
Carbon Dioxide 22
BUN 42 H
Creatinine 1.3 H
Glucose 196 H
Calcium 9.0
Vital Signs:
Vital Signs
Temp Pulse Resp BP Pulse Ox
97.6 F 70 16 148/85 96
02/09/24 04:23 02/09/24 04:23 02/09/24 04:23 02/09/24 04:23 02/09/24 04:23
I&O
02/08/24 02/09/24 02/10/24
06:59 06:59 06:59
Intake Total 1140 / 1140 540 / 540
Output Total 500 / 500 300 / 300
Balance 640 / 640 240 / 240
Review of Systems
-
History Source: Patient
All other systems: Not reviewed unless documented
Physical Exam
-
General: Well Developed and No Apparent Distress
HEENT: Normocephalic, Atraumatic and Moist Mucous Membranes
Respiratory: Rhonchi; Negative Wheezes
Cardiac: Regular Rhythm and S1/S2; Negative Murmur, Rub or Gallop
GI: Soft, Nontender, Nondistended and Normal Bowel Sounds; Negative Organomegaly
Rectal: Deferred by Provider
Musculoskeletal: No Clubbing, No Cyanosis and No Edema
Skin: Negative Rash
Neuro: Awake, Alert, Oriented (Name only) and Nonfocal/Grossly Intact
Data Reviewed
-
Total Time Spent with Patient (in minutes): 45
Diagnostic Radiology: Image personally visualized and interpreted and Report Reviewed by me
Labs: Labs Reviewed by me
[2024-02-09] MEDS: DUONEB 3 ML INH ×4 (08:02→19:27)
[2024-02-09] MEDS: PULMICORT 0.5 MG INH ×2 (08:02→19:23)
[2024-02-09] MEDS: TYLENOL 1000 MG PO ×3 (09:03→21:32)
[2024-02-09] MEDS: KCL 10 MEQ PO ×2 (09:03→16:14)
[2024-02-09] MEDS: LASIX 20 MG PO ×2 (09:04→16:14)
[2024-02-09] MEDS: COLACE 100 MG PO ×2 (09:04→21:28)
[2024-02-09] MEDS: ELIQUIS 2.5 MG PO ×2 (09:05→21:28)
[2024-02-09] MEDS: LOPRESSOR 25 MG PO ×2 (09:06→21:30)
[2024-02-09] MEDS: ANTIFUNGAL CLEAR TOPICAL ×2 (09:06→21:27)
[2024-02-09] MEDS: NOVOLOG FLEXPEN-LOW RESISTANCE 1 UNITS SC ×2 (09:07→16:29)
--- NOTE | 2024-02-09 09:32 | CM ---
Addendum entered by Ros Mena 02/09/24 14:06:
PT/OT evaluations completed; recommend SNF
[facility]
Still no response from [facility] on referral status
Addendum entered by Ros Mena 02/09/24 12:14:
[facility] accepted referral and will have a bed if she is stable for DC tomorrow or Tuesday.
PT/OT hopes to get patient OOB later today; Patient is on O2
Addendum entered by Ros Mena 02/09/24 09:50:
SNF referral status:
No beds @ [facility];
Asked Avelina Nesbitt @ [facility] to reconsider referral; explained that patient's daughter lives in [place]
Left a voice mail for Charity @ [facility] # [phone] to follow up on referral sent
Addendum entered by Ros Mena 02/09/24 09:40:
Reached out to [facility] for further explanation
Original Note:
Referrals to [facility] and [facility] not accepted
--- NOTE | 2024-02-09 10:54 | PTCARENOTE ---
0900: RN into assess patient. Patient drowsy but arouses to voice. Patient not following commands. Full set of vital signs obtained at this time. Continuos pulse ox on patient with SpO2 96%. Patient received morphine at 0527 this AM and has had
similar side effects to morphine at that time. Dr. Barr to patients bedside. D/C order for morphine placed. Care ongoing.
[2024-02-09 12:55] LABS: Glucose - Point of Care 252 mg/dl (70-99)
[2024-02-09] MEDS: NOVOLOG FLEXPEN-LOW RESISTANCE 3 UNITS SC (12:57)
[2024-02-09 16:22] LABS: Glucose - Point of Care 181 mg/dl (70-99)
--- NOTE | 2024-02-09 16:22 | PN.CDI ---
CDI
- -
CDI:
Physician Documentation Request
Admit Date: 02/07/24 03:58
Dear Doctor Cortney,
02/07-02/08 progress notes states ' Acute on chronic HFrEF. Pulmonary edema, acute hypoxic respiratory failure secondary to above.... patient is not on home O2, although has increased oxygen requirements up to 2 L'
Recognized standard criteria for respiratory failure includes:
(Source: [employer] Hospitalist Jun 2013)
ABGs (1 or more)
�PO2 <60 or RA SpO2 <91%
�PcO2 >50 and pH <7.35
�pO2 decrease or pcO2 increase by 10 mmHg from baseline if known Symptoms:
�Tachypnea, SOB, dyspnea
�Pallor or cyanosis
�Anxiety or restlessness
�Use of accessory muscles
�Retractions (grunting in newborns)
�Unable to speak in complete sentences
Supplemental O2 requirement of 40% (5LPM) or more Intubation is not required
Based on the above information and the recognized standard for respiratory failure could you please verify this diagnoses is still accurate and reflective of the patient�s condition to ensure quality of the medical record.
Please clarify in the Progress Notes:
�Respiratory failure is/was present and is a clinical diagnosis based on (please include this additional support in the medical record)
�After study respiratory failure has been ruled out
�Other
Use of terms such as suspected, likely, concern for, or probable (associated with a specific diagnosis that is being evaluated, monitored, or treated as if it exists) are acceptable and can be coded in the inpatient setting, when documented at the
time of discharge.
Thank you,
Emilia Arana RN, BSN
CDI Specialist
tiger text
Please use your independent medical judgment in providing your response.
[2024-02-09] MEDS: SINGULAIR 10 MG PO (17:55)
[2024-02-09] MEDS: LUMIGAN 0.01% 1 DROP OPHTH (17:55)
--- NOTE | 2024-02-09 19:03 | W.PN.UPDATE ---
Update Note
Progress Note Update
Patient seen postop
VSS
Dressing D and I
+1 distal pulses
Xrays show satisfactory prosthesis alignment
PT/OT/Rehab/DC planning consults
Already on Eliquis--should provide DVT prophylaxis
Have F/U with me in about 2 weeks for clip removal
thanks
GGMD
[2024-02-09] MEDS: LEXAPRO 10 MG PO (21:31)
[2024-02-09] MEDS: PRED FORTE 1% EYE DROPS 2 DROP OPHTH (21:31)
[2024-02-09] MEDS: COSOPT EYE DROPS 1 DROP OPHTH (21:31)
[2024-02-09] MEDS: SENOKOT 17.1999999999999993 MG PO (21:32)
[2024-02-09 21:33] LABS: Glucose - Point of Care 226 mg/dl (70-99)
[2024-02-10] VITALS (7 sets, daily range): BP systolic 155–178; BP diastolic 87–106; PULSE 70; O2SAT 92
[2024-02-10 06:28] LABS: Hematocrit 37.8 % (37.0-47.0); Hemoglobin 12.4 g/dL (12.0-16.0); Mean Corp Hgb Conc. 32.8 g/dL (33.0-37.0); Mean Corpuscular Hgb 29.7 pg (27.0-31.0); Mean Corpuscular Volume 90.6 fL (81.0-99.0); Mean Platelet Volume 12.7 fL (7.4-10.4); Platelet Count 148 10^3/uL (130-400); Red Blood Cell Count 4.17 10^6/uL (4.20-5.40); Red Cell Dist. Width 15.9 % (11.5-14.5); White Blood Cell Count 10.1 10^3/uL (4.8-10.8)
[2024-02-10 06:56] LABS: Blood Urea Nitrogen 46 mg/dl (7-17); Calcium 9.1 mg/dl (8.4-10.2); Carbon Dioxide 22 mmol/L (22-30); Chloride 107 mmol/L (98-107); Estimated Creatinine Clearance 33 ml/min; Glucose 162 mg/dl (70-99); Potassium 4.8 mmol/L (3.5-5.1); Sodium 134 mmol/L (135-145); eGFR 48.33
[2024-02-10] MEDS: DUONEB 3 ML INH ×3 (07:12→15:33)
[2024-02-10] MEDS: PULMICORT 0.5 MG INH (07:12)
[2024-02-10 07:29] LABS: Glucose - Point of Care 150 mg/dl (70-99)
[2024-02-10] MEDS: NOVOLOG FLEXPEN-LOW RESISTANCE 1 UNITS SC ×2 (08:09→13:03)
[2024-02-10] MEDS: KCL 10 MEQ PO (08:10)
[2024-02-10] MEDS: TYLENOL 1000 MG PO (08:21)
[2024-02-10] MEDS: LOPRESSOR 25 MG PO (08:23)
[2024-02-10] MEDS: LASIX 20 MG PO (08:24)
[2024-02-10] MEDS: COLACE 100 MG PO (08:24)
[2024-02-10] MEDS: ELIQUIS 2.5 MG PO (08:25)
[2024-02-10] MEDS: ANTIFUNGAL CLEAR TOPICAL (08:28)
--- NOTE | 2024-02-10 08:58 | W.PN.HOSP.TC ---
Addendum entered and electronically signed by Beny Barr MD 02/12/24 14:59:
Respiratory failure was present and is a clinical diagnosis based on rhonchi and requiring 2L NC.
Addendum entered and electronically signed by Beny Barr MD 02/11/24 16:06:
[id number]
Original Note:
Today's Communication/Plan
-
weaned to ra
cont eliquis
F/u Ortho 2 weeks, f/u pcp within 1 week, f/u cards outpatient
Assessment / Plan
Assessment / Plan
Impression:
Patient is an 88y F with PMH significant for ASCVD, CKD and DM-II who presents to ED complaining of L hip pain s/p fall.
Left hip fracture secondary to mechanical fall and osteoporosis
Status post mechanical fall at home
Acute on chronic CHF reduced EF
Acute hypoxic respiratory failure secondary to above
Conditions prior to admission:
1. Severe aortic stenosis status post TAVR.
2. Chronic CHF, reduced EF.
3. Paroxysmal atrial fibrillation.
4. Anticoagulation with Eliquis.
5. Sick sinus syndrome with pacemaker in place.
6. Severe COPD.
7. CAD.
8. Essential hypertension.
9. Diabetes type 2.
10. Dyslipidemia.
11. COVID-19
Plan
Mechanical Fall
Left Femur Fracture
S/p Lip Hip Replacement
-PT/OT - SNF
-Resume Eliquis
-Incentive [place], Acapella
-Monitor HgB
Fall at Home
- Unclear mechanism of fall based on history.
- Described diaphoresis / clamminess after the fall may have been on the basis of pain?
- Monitor for any new / recurrent symptoms.
- f/u cards outpatient
ASCVD
Paroxysmal A-Fib
Severe s/p TAVR
- Stable. Continue current CV med regimen excepting Eliquis.
- Follow for any complaints of chest pain, etc.
Acute on chronic chronic HFrEF
Pulmonary edema
Acute hypoxic respiratory failure secondary to above
Improved respiratory status, resolved on RA
Chest x-ray with increased vascularity bilaterally consistent with pulmonary edema
Patient is not on home O2, although has increased oxygen requirements up to 2 L; weaned off RA
She was given additional dose of IV Lasix on 02/06.
Continue oral Lasix as scheduled.
Volume and respiratory status optimized for surgical intervention.
-F/u cards outpatient
JAVIER
-resolved
COPD
- No evidence of acute exacerbation / no active wheezing.
- Patient with increased subjective dyspnea recently - ? mild HF v COPD.
- Nebs ATC and PRN.
- Follow for any new / worsening symptoms.
DM-II
- Stable. Hold PO medications (only on glipizide twice weekly?)
- Follow glucose and cover with SSI as needed.
- Hemoglobin A1c 6.4
Constipation
- Patient with noted rectal stool ball on pelvic imaging.
- Bowel regimen.
- Avoid disimpaction / enemas for now given femur fracture.
- Follow for positive results.
DVT Prophylaxis; Foot Pumps
Code Status: Full
More than 30 minutes spent in discharge including
Final examination of the patient
Summarizing hospital stay
Instructions for continuing care to all relevant caregivers
Preparation of discharge records, prescriptions, and referral forms
Total time spent (35 in minutes):
Anticipated Discharge: Today
Subjective/Interval History
-
Date of Service: February 10, 2024
No acute events, weaned to room air; lethargic
Objective Data
-
Labs:
Laboratory Results
02/10/24
04:53
WBC 10.1
Hgb 12.4
Hct 37.8
Plt Count 148
Sodium 134 L
Potassium 4.8
Chloride 107
Carbon Dioxide 22
BUN 46 H
Creatinine 1.1 H
Glucose 162 H
Calcium 9.1
Vital Signs:
Vital Signs
Temp Pulse Resp BP Pulse Ox
98 F 70 16 175/95 98
02/10/24 07:59 02/10/24 07:59 02/10/24 07:59 02/10/24 08:23 02/10/24 07:59
I&O
02/09/24 02/10/24 02/11/24
06:59 06:59 06:59
Intake Total 540 / 540 560 / 560
Output Total 300 / 300
Balance 240 / 240 560 / 560
Review of Systems
-
History Source: Patient
All other systems: Not reviewed unless documented
Physical Exam
-
General: Well Developed and No Apparent Distress
HEENT: Normocephalic, Atraumatic and Moist Mucous Membranes
Respiratory: Rhonchi; Negative Wheezes
Cardiac: Regular Rhythm and S1/S2; Negative Murmur, Rub or Gallop
Breast: Other (under left breast: skin tear, non erythematous, non infected, healing )
GI: Soft, Nontender, Nondistended and Normal Bowel Sounds; Negative Organomegaly
Rectal: Deferred by Provider
Musculoskeletal: No Clubbing, No Cyanosis and No Edema
Skin: Negative Rash
Neuro: Awake, Alert, Oriented (Name only) and Nonfocal/Grossly Intact
Data Reviewed
-
Total Time Spent with Patient (in minutes): 45
Diagnostic Radiology: Image personally visualized and interpreted and Report Reviewed by me
Labs: Labs Reviewed by me
[2024-02-10 12:08] LABS: Glucose - Point of Care 176 mg/dl (70-99)
--- NOTE | 2024-02-10 12:23 | W.DS.TRANS ---
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
-
Discharge Instructions:
Discharge Diagnosis/Procedures Mechanical Fall
Left Femur Fracture
S/p Lip Hip Replacement
Diet Low Cholesterol,Low Fat,Diabetic, Carb
Controlled
Blood Work BMP in 1 week - checking sodium, potassium,
creatine
Instructions:
Stand-Alone Forms:
Changes to Home Medications: Yes
Discharge Medications:
DC Medications w/original date entered in [facility]
cqlxua-[id number] 36,000-114,000-180,000 unit capsule,delay rel (Creon) 1 cap PO QPM Gastrointestinal issue 05/30/22
glipizide 5 mg tablet 5 mg PO TUFR Diabetes 12/22/22
albuterol sulfate 90 mcg/actuation breath activated powder inhaler 2 inh inhalation R Q6 PRN sob/wheezing 08/12/23
budesonide 0.5 mg/2 mL suspension for nebulization (Pulmicort) 0.5 mg inhalation R BID Lung/Breathing Issues 08/12/23
furosemide 20 mg tablet 20 mg PO BID Fluid Retention/Swelling 08/12/23
levocetirizine 5 mg tablet 5 mg PO QPM Allergies 08/12/23
montelukast 10 mg tablet 10 mg PO QPM Lung/Breathing Issues 08/12/23
potassium chloride 10 mEq capsule,extended release 10 meq PO BID Electrolyte Repletion 08/12/23
simvastatin 40 mg tablet 40 mg PO TUFR@1800 High Cholesterol 08/12/23
apixaban 5 mg tablet (Eliquis) 2.5 mg PO BID Blood clot prevention/tx 02/07/24
bimatoprost 0.01 % eye drops (Lumigan) 1 drp RIGHT EYE HS Eye Condition 02/07/24
dorzolamide 22.3 mg-timolol 6.8 mg/mL eye drops 1 drp RIGHT EYE HS Eye Condition 02/07/24
prednisolone acetate 1 % eye drops,suspension 2 drp LEFT EYE HS Eye Condition 02/07/24
ascorbic acid (vitamin C) 500 mg tablet (Vitamin C) 500 mg PO DAILY 02/08/24
coenzyme Q10 100 mg capsule (CoQ-10) 300 mg PO DAILY 02/08/24
escitalopram oxalate 10 mg tablet 10 mg PO HS 02/08/24
metoprolol tartrate 25 mg tablet 25 mg PO BID 02/08/24
turmeric 400 mg capsule 400 mg PO DAILY 02/08/24
vitamin K2 90 mcg capsule 90 mcg PO DAILY 02/08/24
miconazole nitrate 2 % topical ointment (Critic-Aid Clear AF (miconazole)) 1 applic topical BID #0 grams 02/10/24
Home Medication Changes
miconazole nitrate 2 % topical ointment (Critic-Aid Clear AF (miconazole)) 1 applic topical BID #0 grams 02/10/24
Pending Results: No
--- NOTE | 2024-02-10 12:25 | WOUNDNOTE ---
LEFT BREAST SKIN FOLD
--- NOTE | 2024-02-10 12:26 | WOUNDNOTE ---
[facility] RN note: Patient admitted s/p fall, left hip fracture with repair on 02/07.
See H&P for complete history.
PMH: A-fib, COPD, CHF, DMII, osteoporosis, HTN
Wound Location and type/assessment: Consult received for under left breast. Per chart review, daughter reported wound under left breast on 02/07 and antifungal ointment was ordered. Daughter, Radha, showed this RN a picture of wound from 02/07
which did appear fungal, bright red with blister. Daughter describes that an adhesive was 'pulled off' in the OR causing wound. Daughter unable to describe adhesive and did not witness anything being pulled off. Suspect possible lead removal causing
blister. Family has refused use of antifungal ointment and has been applying barrier ointment to open areas. At time of assessment, blister has opened and wound is shallow, dry and progressing toward healing. Sacrum and heels not assessed as
daughter did not want the patient to be moved.
Appetite: Daughter feeding patient, reports fair appetite
Pressure redistribution devices in place: Static air overlay, heels off-loaded on pillows.
Plan: Wound was cleaned with water and hydrogel and ABD applied. Rationale for wound care provided to daughter who stated understanding and will take Hydrogel to SNF. RN Lesley updated. Will confirm orders with hospitalist.
--- NOTE | 2024-02-10 13:40 | CM ---
Patient has been medically cleared for discharge to [facility]ci and rehab services. Transport has been scheduled for 5:00 PM.
Daughter aware and is with patient.
NURSE TO NURSE REPORT # [phone]
FAX # [phone]
--- NOTE | 2024-02-10 13:42 | PTCARENOTE ---
1200: called to room by family, pt is coughing and gagging BP 178/106 (72) daughter insist cough/gag d/t hi BP. but she is spooning is food from earlier. concerned she may have aspirated or had difficulty swallowing but daughter argumentative, would
not hear what nurse was trying to present. Daughter stated pt gets this way with HTN. TT with Dr. Swan, recheck BP one hr ordered ST consult. IDDSI 4 puree/ thin liquids ordered, meds crushed in applesauce. BP 178/104 (73). TT Dr. Swan he asked
about pain, stated yes when tried to give Oxycodone 5mg at 1130 daughter would not allow. Now went back to room, pt in [place] stated she was in pain. Gave Oxycodone 5mg.
--- NOTE | 2024-02-10 14:11 | PTOTSP ---
SPEECH THERAPY SWALLOW EVALUATION:
Patient exhibits clinical signs of oropharyngeal dysphagia, likely chronic related to dementia, COPD, CHF, and acutely exacerbated by post surgical recovery/lethargy/confusion following hip surgery 02/07. Patient remains at high risk for aspiration
and related complications given confusion and lethargy. Recommend IDDSI Level 4 Puree diet and thin liquids via single small cup sips only. Medications crushed in puree. Aspiration precautions: 1:1 assist; Upright positioning; Small single sips; NO
STRAWS; Only feeding when awake/alert; Ensure patient swallows prior to next bite; Verbal cues to initiate swallow as necessary; Check for pocketing; Ensure oral cavity clear at end of meal; Oral care 3x/day to reduce risk for nosocomial infection;
D/c oral diet if signs of aspiration or a decline in mental or respiratory status. Speech therapy to follow. Education provided to daughter regarding recommendations. All questions answered.
RECOMMEND:
1) IDDSI Level 4 Puree diet and thin liquids via single small cup sips
2) Medications crushed in puree
3) Aspiration precautions: 1:1 assist; Upright positioning; Small single sips; NO STRAWS; Only feeding when awake/alert; Ensure patient swallows prior to next bite; Verbal cues to initiate swallow as necessary; Check for pocketing; Ensure oral
cavity clear at end of meal; Oral care 3x/day to reduce risk for nosocomial infection; D/c oral diet if signs of aspiration or a decline in mental or respiratory status
4) Speech therapy to follow
--- NOTE | 2024-02-10 15:47 | PTCARENOTE ---
apptempt to call Yv[facility]
--- NOTE | 2024-02-10 16:20 | PTCARENOTE ---
daughter approached nurse at 1615 to notify that she no longer wants mother to go to [facility] d/t bad reviews her read on line. She said she was going to visit facility today but did not. Transport will be here at 1700 for p/u. Notified
--- NOTE | 2024-02-10 17:06 | PTCARENOTE ---
pt now decide to go to [facility] left with transport
[2024-02-11 11:53] LABS: Glucose - Point of Care 203 mg/dl (70-99)
== END 2024-02-10 17:00 | DRG 521 ==
LOC: 2 SOUTH 03:58
PROVIDERS: Internal Medicine; ADMITTING PHYSICIAN Hospitalist; ATTENDING PHYSICIAN Internal Medicine; EMERGENCY PHYSICIAN Emergency Medicine; FAMILY PHYSICIAN Internal Medicine; OTHER PHYSICIAN Orthopaedic Surgery Hand Surgery
PROC: 0SRS0J9 Replacement of Left Hip Joint, Femoral Surface with Synthetic Substitute, Cemented, Open Approach (ICD-10-PCS; 2024-02-08)
DX: S72.032A Displaced midcervical fracture of left femur, initial encounter for closed fracture (principal); I50.23 Acute on chronic systolic (congestive) heart failure; J96.01 Acute respiratory failure with hypoxia; I13.0 Hypertensive heart and chronic kidney disease with heart failure and stage 1 through stage 4 chronic kidney disease, or unspecified chronic kidney disease; M80.052A Age-related osteoporosis with current pathological fracture, left femur, initial encounter for fracture; N17.9 Acute kidney failure, unspecified; J44.9 Chronic obstructive pulmonary disease, unspecified; N18.30 Chronic kidney disease, stage 3 unspecified; E66.9 Obesity, unspecified; Z95.2 Presence of prosthetic heart valve; I35.0 Nonrheumatic aortic (valve) stenosis; Z68.33 Body mass index [BMI] 33.0-33.9, adult; I49.5 Sick sinus syndrome; W18.39XA Other fall on same level, initial encounter; Y92.002 Bathroom of unspecified non-institutional (private) residence as the place of occurrence of the external cause; I25.10 Atherosclerotic heart disease of native coronary artery without angina pectoris; I48.0 Paroxysmal atrial fibrillation; K59.00 Constipation, unspecified; R41.9 Unspecified symptoms and signs involving cognitive functions and awareness; Z96.653 Presence of artificial knee joint, bilateral; Z79.01 Long term (current) use of anticoagulants; Z79.84 Long term (current) use of oral hypoglycemic drugs; Z79.899 Other long term (current) drug therapy; Z95.0 Presence of cardiac pacemaker; Z95.5 Presence of coronary angioplasty implant and graft; Z85.828 Personal history of other malignant neoplasm of skin; Z90.49 Acquired absence of other specified parts of digestive tract; Z86.16 Personal history of COVID-19; Z88.0 Allergy status to penicillin; Z88.8 Allergy status to other drugs, medicaments and biological substances; Z91.040 Latex allergy status
CPT/HCPCS: 71045; 73501; 73502; 80048; 82962; 83036; 83735; 83880; 85014; 85018; 85025; 85027; 86850; 86900; 86901; 92610; 93005; 94640; 96361; 96374; 96375; 97163; 97167; 97530; 99285; C1713; C1776

== ENCOUNTER 2024-02-11 02:32 | Inpatient (IN) | payer MEDICARE, OTHER, SELFPAY ==
[2024-02-10 23:14] VITALS: BP 163/90
--- NOTE | 2024-02-10 23:39 | ED.GENMED ---
History of Present Illness
General
Chief Complaint: Abdominal Symptoms
Source: records and family
Time Seen by Provider: 02/10/24 23:35
History of Present Illness
History of Present Illness:
88-year-old female sent to the emergency room from [facility] for evaluation of lethargy. Patient was discharged just a few hours ago from this hospital after a hospitalization for hip fracture. Patient underwent a left hemiarthroplasty on February 07.
Daughter states the patient seemed quite weak earlier today. She did not participate in physical therapy. Upon arrival to [facility] the patient was noted to be less interactive than she was reported to be in the hospital. She would not take her
medications. Therefore patient sent back to the hospital for further evaluation.
Past History
Past History
ED Past Medical History: CAD, HTN, Hypercholesterolemia and Valvular disease
ED Past Surgical History: Cardiac
Patient has exhibited threatening behavior?: No
PSI?: No
Social History
Tobacco: Non-smoker
Alcohol: None
Drug: None
Phy Exam
Physical Exam
Physical Exam:
General: Awake, Alert, Oriented X3. Patient appears ill
Vitals: Hypoxic on room air, febrile with a rectal temp of 100.8
Head: Atraumatic
Eyes: Pupils equal, EOMI
Throat: Airway intact, no exudates, very dry mucosa
Neck: Trachea midline
Lungs: Poor respiratory effort
Heart: Regular rate, no murmurs
Abd: Soft, tender and palpable mass thought to be the bladder in the lower abdomen, no pulsatile mass
Neuro: Nonfocal
Skin: Warm, dry, no rash
Extremities: pulses equal b/l, no edema
Course
Orders/Labs/Results
Orders:
Orders
02/10/24 23:35
Cardiac Monitoring- Treatment ONCE
Quijano Placement- Treatment ONCE
Reason for insertion: Acute Retention
Urinalysis Reflex To Culture Urgent
Date Specimen was Collected: 02/10/24
Time Specimen was Collected: 23:59
Influenza A+B Rapid Molecular Urgent
KUN Source: Nasal Swab
Specimen Description:
0.9% Sodium Chloride 1000 ml [Nss] 1,000 ml IV BOLUS
02/10/24 23:54
Complete Blood Count/With Diff Urgent
Comprehensive Metabolic Panel Urgent
Lactic Acid Q4H
Comment: CANCEL 2nd LACTIC ACID IF 1st LACTIC ACID IS LESS THAN 2
Blood Culture Q30M
KUN Source: Blood/Venous
Specimen Description:
02/11/24 00:04
CR Chest - 2 Views Urgent
Reason For Exam: fever
02/11/24 00:54
Cefepime HCl [Maxipime] 2,000 mg IV NOW STA
02/11/24 00:57
Blood Culture Q30M
KUN Source: Blood/Venous
Specimen Description:
02/11/24 01:15
Sterile Water [Sterile Water For Injection] 10 ml .ROUTE .[facility]
02/11/24 01:24
COVID-19 Antigen Routine
Source: Nasal Swab
02/11/24 01:44
Admit/Transfer Patient As Directed
Co-Sign Provider:
Level of Care: Inpatient admission
Assign to:: Telemetry
Physician / Group: htay
Diagnosis: weakness, hypoxia, eval for PNA, HX AF
Reason for Telemetry: Arrhythmia
Date to Stop Telemetry: 02/14/24
Time to Stop Telemetry: 11:00
Reason for Hospitalization: weakness, hypoxia, eval for PNA
Expected length of stay greater than two midnights?: Yes
ELOS- Estimated Length of Stay in days: 4
I certify the patient meets the requirements for IP care: Yes
02/11/24 01:46
Code Status As Directed
Resuscitation Status: Full Code
02/11/24 02:00
Flush (0.9% Sodium Chloride) [Flush (Nss)] See Dose Instructions IV PER PROTOCOL
02/11/24 03:45
Lactic Acid Q4H
Comment: CANCEL 2nd LACTIC ACID IF 1st LACTIC ACID IS LESS THAN 2
02/11/24 06:00
Procalcitonin IN AM
PCT Algorithmm Indication: Respiratory
02/14/24 11:00
DC Protocol for Telemetry ONCE
Abnormal Lab Results
02/10/24
23:54
RDW 16.1 H %
(11.5-14.5)
MPV 12.8 H fL
(7.4-10.4)
Abs Immat Gran (auto) 0.2 H 10^3/uL
(0-0.05)
Absolute Neuts (auto) 7.7 H 10^3/uL
(1.4-6.5)
Absolute Lymphs (auto) 0.8 L 10^3/uL
(1.2-3.4)
Absolute Monos (auto) 1.1 H 10^3/uL
(0.1-0.6)
Immature Gran % 2.3 H %
(0-0.5)
Neutrophils % 76.5 H %
(42.2-75.2)
Lymphocytes % 8.1 L %
(20.5-51.1)
Monocytes % 10.8 H %
(1.7-9.3)
Potassium 5.2 H mmol/L
(3.5-5.1)
BUN 43 H mg/dl
(7-17)
Creatinine 1.1 H mg/dL
(0.6-1.0)
Glucose 185 H mg/dl
(70-99)
Total Protein 5.5 L g/dl
(6.3-8.2)
Albumin 3.2 L g/dl
(3.5-5.0)
02/10/24 23:54
02/10/24 23:54
Vital Signs
Initial and Last Documented VS:
Initial Vital Signs
Pulse Resp BP Pulse Ox
78 19 163/90 87
02/10/24 23:14 02/10/24 23:14 02/10/24 23:14 02/10/24 23:14
Last Documented Vital Signs
Temp Pulse Resp BP Pulse Ox
100.8 F H 70 12 117/61 100
02/10/24 23:30 02/11/24 02:00 02/11/24 02:00 02/11/24 01:00 02/11/24 02:00
MDM/Problems Addressed
Differential Diagnosis Includes:
Pneumonia, aspiration pneumonia, urinary tract infection,
MDM/Problems Addressed:
Patient presents back to the emergency room being discharged earlier in the day. She is feeling to be febrile here. Chest x-ray reviewed and I note what appears to be an infiltrate lateral x-ray suggestive of right lower lobe infiltrate. Cefepime
started. Patient will be admitted to the hospitalist service.
*Radiology
Radiology exam reviewed: preliminary read by ED provider (Personally viewed the patient's chest x-ray no infiltrate on the lateral film suggestive of a right lower lobe pneumonia)
*Pulse Oximetry
Patient hypoxic: yes
*Windmill Technician Interpretation
Rate: normal
Interpretation: normal
Rhythm: sinus
*Critical Care Note
Total Time (30-74mins, 75-104mins- exclusive of procedures): Not Applicable
Data Reviewed
Review of Other/Old Records Reveals: Operative Reports and Discharge Summary
Patient Management
Social determinants of health affecting care: Living situation
ED Attending Note
-
Portions of this chart may have been created with voice recognition software.� Occasional wrong word or��sound alike� substitutions may have occurred due to the inherent limitations of voice recognition software.
Discharge Plan
Departure
Patient Disposition: Admit
Date of Disposition: 02/11/24
Time of Disposition: 00:52
Admit to: Med/Surg
Presentation/result/management discussed w/ accepting MD/DO: Hospitalist
Condition: Fair
Discharge Problem:
Fever, Pneumonia
Prescriptions:
No Action
Creon 36,000-114,000- 180,000 unit Capsule,Delayed Release(Dr/Ec)
1 cap PO QPM
glipizide 5 mg Tablet
5 mg PO TUFR
potassium chloride 10 mEq capsule, extended release
10 meq PO BID
simvastatin 40 mg tablet
40 mg PO TUFR@1800
montelukast 10 mg tablet
10 mg PO QPM
furosemide 20 mg tablet
20 mg PO BID
levocetirizine 5 mg tablet
5 mg PO QPM
budesonide [Pulmicort] 0.5 mg/2 mL suspension for nebulization
0.5 mg inhalation R BID
albuterol sulfate 90 mcg/actuation aerosol powdr breath activated
2 inh inhalation R Q6 PRN (Reason: sob/wheezing)
Lumigan 0.01 % Drops
1 drp RIGHT EYE HS
Rx Instructions:
right eye
dorzolamide-timolol 22.3-6.8 mg/mL Drops
1 drp RIGHT EYE HS
Rx Instructions:
right eye
prednisolone acetate 1 % Drops,Suspension
2 drp LEFT EYE HS
Rx Instructions:
left eye
metoprolol tartrate 25 mg Tablet
25 mg PO BID
escitalopram oxalate 10 mg Tablet
10 mg PO HS
Critic-Aid Clear AF(miconazol) 2 % Ointment
1 applic topical BID Qty: 0 0RF
acetaminophen 325 mg Tablet
650 mg PO Q4H PRN (Reason: mild pain/fever>100)
magnesium hydroxide [Milk of Magnesia] 400 mg/5 mL Suspension
30 ml PO DAILY PRN (Reason: if no bm x 3 days)
Fleet Enema 19-7 gram/118 mL Enema
118 ml MS DAILY PRN (Reason: if dulcolax is ineffective)
apixaban 2.5 mg Tablet
2.5 mg PO BID
Referrals:
Layla Laguna DO [Family Provider] -
Interventions
Interventions:
*General Assessment Last Done: 02/11/24 01:24
ED- Fall Risk Assessment Last Done: 02/11/24 01:24
*ED COVID-19 Vaccine History Last Done: 02/11/24 01:24
NR-Powlon-Uypcsayzgz Assessment Last Done: 02/10/24 23:30
Discharge Date and Time
Print Language: DIVEHI
[2024-02-11] VITALS (15 sets, daily range): BP systolic 107–161; BP diastolic 60–88; PULSE 75–78; O2SAT 95–96; BMI 32.8
[2024-02-11 00:23] LABS: Lactic Acid 1.2 mmol/L (0.7-2.0)
[2024-02-11 00:24] LABS: ALT (SGPT) 19 U/L (0-35); AST (SGOT) 33 U/L (14-36); Albumin 3.2 g/dl (3.5-5.0); Alkaline Phosphatase 87 U/L (38-126); Blood Urea Nitrogen 43 mg/dl (7-17); Calcium 9.2 mg/dl (8.4-10.2); Carbon Dioxide 23 mmol/L (22-30); Chloride 107 mmol/L (98-107); Glucose 185 mg/dl (70-99); Potassium 5.2 mmol/L (3.5-5.1); Sodium 138 mmol/L (135-145); Total Bilirubin 1.1 mg/dl (0.2-1.3); Total Protein 5.5 g/dl (6.3-8.2); eGFR 48.33
[2024-02-11 00:27] LABS: Urine Albumin Negative (Neg - Trace); Urine Bilirubin Negative (Negative); Urine Character Clear (Clear); Urine Color Yellow; Urine Glucose Negative (Negative); Urine Ketone Negative (Negative); Urine Leukocyte Negative (Negative); Urine Nitrite Negative (Negative); Urine Occult Blood Negative (Negative); Urine Urobilinogen Negative (Neg - 1+)
[2024-02-11 00:28] LABS: % Basophils 0.5 % (0-2); % Eosinophils 1.8 % (0-6); % Immature Granulocytes 2.3 % (0-0.5); % Lymphocytes 8.1 % (20.5-51.1); % Monocytes 10.8 % (1.7-9.3); % Neutrophils 76.5 % (42.2-75.2); Absolute Basophils 0.1 10^3/uL (0-0.2); Absolute Eosinophils 0.2 10^3/uL (0-0.7); Absolute Immature Granulocytes 0.2 10^3/uL (0-0.05); Absolute Lymphocytes 0.8 10^3/uL (1.2-3.4); Absolute Monocytes 1.1 10^3/uL (0.1-0.6); Absolute Neutrophils 7.7 10^3/uL (1.4-6.5); Hematocrit 38.9 % (37.0-47.0); Hemoglobin 12.9 g/dL (12.0-16.0); Mean Corp Hgb Conc. 33.2 g/dL (33.0-37.0); Mean Corpuscular Hgb 29.9 pg (27.0-31.0); Mean Platelet Volume 12.8 fL (7.4-10.4); Nucleated Red Blood Cells % 0 %; Platelet Count 176 10^3/uL (130-400); Red Blood Cell Count 4.32 10^6/uL (4.20-5.40); Red Cell Dist. Width 16.1 % (11.5-14.5)
[2024-02-11] MEDS: NSS 1000 IV (00:54)
[2024-02-11] MEDS: MAXIPIME 2000 MG IV (01:16)
--- NOTE | 2024-02-11 01:40 | HPS.HSE ---
Family Physician
-
Family Physician: Lavonne Laguna,
Chief Complaint
-
weak and less interactive
History of Present Illness
88F PMH significant for ASCVD, CKD and DM-II was DC ;d yesterday s/p Lt Hip ORIF s/p mechanical fall and Fx
Per daughter brought back into the hospital due to weakness
- patient was DC;d to [facility] s/p Lt hip ORIF on 02/09
- she felt weak and cannot participate with PT
- Less interactive
Medical History
Past Medical History
Past Medical History: Reports Other
Additional Past Medical History:
ASCVD
Chronic HFrEF
Paroxysmal Atrial Fibrillation
s/p TAVR
Hypertension
COPD
DM-II
CKD III
Obesity
Non-Melanoma Skin Cancer
Past Surgical History: Reports Other
Additional Past Surgical History:
TAVR
PPM Placement
PTCA with Stents
Bilateral TKA
Appendectomy
Skin Cancer Excision
Social History
Tobacco: Non-smoker
Alcohol: None
Drug: None
Family History
Family History: Not pertinent
Allergies / Home Medications
Allergies reflects when Allergies were last updated in [employer].
Home Medications with original date entered in [employer]
Allergy/Medication List:
Allergies
Allergy/AdvReac Type Severity Reaction Status Date / Time
dapagliflozin [From Farxiga] Allergy Blisters Verified 02/07/24 01:30
latex Allergy Rash Verified 02/07/24 01:30
Penicillins Allergy Passed out Verified 02/07/24 01:30
Home Medications
aetjtl-rwftzbsn-kxxybit 36,000-114,000-180,000 unit capsule,delay rel (Creon) 1 cap PO QPM Gastrointestinal issue 05/30/22
glipizide 5 mg tablet 5 mg PO . AND TUESDAY Diabetes 12/22/22
albuterol sulfate 90 mcg/actuation breath activated powder inhaler 2 inh inhalation R Q6 PRN sob/wheezing 08/12/23
budesonide 0.5 mg/2 mL suspension for nebulization (Pulmicort) 0.5 mg inhalation BID Lung/Breathing Issues 08/12/23
furosemide 20 mg tablet 20 mg PO BID Fluid Retention/Swelling 08/12/23
levocetirizine 5 mg tablet 5 mg PO QPM Allergies 08/12/23
montelukast 10 mg tablet 10 mg PO QPM Lung/Breathing Issues 08/12/23
potassium chloride 10 mEq capsule,extended release 20 meq PO BID Electrolyte Repletion 08/12/23
simvastatin 40 mg tablet 40 mg PO .QPM AND TUESDAY High Cholesterol 08/12/23
apixaban 5 mg tablet (Eliquis) 2.5 mg PO BID Blood clot prevention/tx 02/07/24
metoprolol succinate 50 mg tablet,extended release 24 hr 25 mg PO BID Blood pressure 02/07/24
Review of Systems
-
History Source: Patient
A 12 point ROS was completed and negative except as noted: Yes
Constitutional: Denies Fever or Chills
EENT: Reports No Symptoms
Respiratory: Denies Cough
Cardiac: Denies Chest Pain or Palpitations
Abdomen/GI: Denies Abdominal Pain, Nausea, Vomiting or Diarrhea
: Denies Dysuria or Frequency
Skin: Reports No Symptoms
Neurological: Reports Dizzy
Psych: Denies Depression or Anxiety
Physical Exam
Vital Signs
Vital Signs
Pulse Resp BP Pulse Ox
70 14 117/61 98
02/11/24 01:15 02/11/24 01:15 02/11/24 01:00 02/11/24 01:15
Physical Exam
General: Well Nourished, No Apparent Distress and Comfortable
HEENT: Moist mucous membranes, PERRLA and Other (No JVD.)
Respiratory: Other (Decreased BS at bases - otherwise clear. No wheezing or rales.)
Cardiac: S1/S2, Regular Rhythm and Murmur (II/ MAYR)
GI: Soft, Non Tender, Non Distended and Normal Bowel Sounds
Rectal: Deferred by Provider
Genito-urinary: Deferred by me
Musculoskeletal: No Edema
Skin: Warm and Dry
Neuro: Awake and Alert
Psych: Calm
Laboratory Results
-
02/10/24 23:54
02/10/24 23:54
Laboratory Results
Lactic Acid 1.2 mmol/L (0.7-2.0) 02/10/24 23:54
Total Bilirubin 1.1 mg/dl (0.2-1.3) 02/10/24 23:54
AST 33 U/L (14-36) 02/10/24 23:54
ALT 19 U/L (0-35) 02/10/24 23:54
Alkaline Phosphatase 87 U/L (38-126) 02/10/24 23:54
Data Reviewed
-
Medical Tests (Nuc Med, Echo, EKG etc): Report Reviewed by me
Lab Data: Labs Reviewed by me
Old Records: Reviewed
Impression/Plan
-
Reviewed VS: BP 160/90 HR 78 POx 95--> 87 on RA
Data
nl WCC
K 5.2
BUN 43
Cr 1.1
eGFR 48 - baseline 48
BG 185
NEG UA
NEG Flu A & B
CXR: per ER attd ? PNA on lateral view. Pending final report
Last hospitalist admission: 02/06- 02/09 [facility]; S/p Lt Hip ORIF 02/08/24
ASSESSMENT & PLAN
Pending Rx reconciliation
? Post op PNA with associated weakness
Hypoactive encephalopathy
Marginal Hypoxia
HX COPD
Hemodynamically stable
- check PCT
- f/u final CXR report
- add vancomycin to IV CFP
- Incentive spirometry
S/P Lt Hip ORIF ( 02/08/24) s/p mechanical fall with Lt hip Fx
- PT/OT
HC COPD
- No evidence of acute exacerbation / no active wheezing.
ASCVD
Paroxysmal A-Fib
Severe s/p TAVR
- Stable.
- cont CLIENT SERVICES DIRECTOR Eliquis.
Chronic HFrEF
- Stable. Patient does not appear grossly volume overloaded.
- Continues usual diuretic regimen.
- Follow I/Os, daily weights, etc.
DMT2
- Stable. Hold PO medications (only on glipizide twice weekly?)
- ad ISS low
Constipation
- Bowel regimen.
DVT Px: on Eliquis
Code: Full code
IP TLM
[2024-02-11 02:32] LABS: COVID-19 Antigen Negative (Negative)
[2024-02-11 02:44] LABS: Procalcitonin 0.08 ng/ml (0.0-0.25)
[2024-02-11] MEDS: VANCOCIN 540 MG IV (05:55)
--- NOTE | 2024-02-11 06:02 | PTCARENOTE ---
@0600;Took bed cot into pt's room for daughter to use.Pt's daughter,agitated, sitting in chair and stated,'that's too big for this room. No ,not using it'.Instructed pt's daughter if she changes her mind to call for assistance with cot.
[2024-02-11 06:36] LABS: Blood Urea Nitrogen 42 mg/dl (7-17); Calcium 8.2 mg/dl (8.4-10.2); Carbon Dioxide 25 mmol/L (22-30); Chloride 110 mmol/L (98-107); Estimated Creatinine Clearance 36 ml/min; Glucose 209 mg/dl (70-99); Lactic Acid 1.5 mmol/L (0.7-2.0); Potassium 4.7 mmol/L (3.5-5.1); Sodium 139 mmol/L (135-145); eGFR 54.19
[2024-02-11] MEDS: PULMICORT 0.5 MG INH ×2 (07:39→19:23)
[2024-02-11 08:02] LABS: Glucose - Point of Care 222 mg/dl (70-99)
[2024-02-11] MEDS: KCL 10 MEQ PO ×2 (08:41→20:03)
[2024-02-11] MEDS: LASIX 20 MG PO ×2 (08:41→20:03)
[2024-02-11] MEDS: ELIQUIS 2.5 MG PO ×2 (08:41→20:03)
[2024-02-11] MEDS: STERILE WATER FOR INJECTION 10 ML IV (08:42)
[2024-02-11] MEDS: MAXIPIME 1000 MG IV (08:42)
[2024-02-11] MEDS: LOPRESSOR 25 MG PO ×2 (08:45→20:03)
[2024-02-11] MEDS: NOVOLOG FLEXPEN-LOW RESISTANCE 2 UNITS SC ×2 (10:01→12:08)
--- NOTE | 2024-02-11 10:45 | PHA.VAN.IN ---
Assessment
- Assessment
Renal Function: Appears similar to baseline
Renal Function may be Overestimated due to: Obesity. BMI 34
Maximum Temperature: 100.8
Minimum Temperature: 98.3
Concomitant Antimicrobials: Cefepime
Plan
- Plan
Initial / Loading Dose: Vanc 2000mg IV 02/10 at 0555
Maintenance Regimen: PRN by level
Monitoring: Vanc R 02/11 AM
Pharmacokinetics Vancomycin I
- -
Patient Age: 88
Patient Sex: Female
Vancomycin Day #: 1
Indication: Pulmonary/Respiratory
Requesting Provider: Htay
Pertinent Antimicrobial Allergies:
PCN 'passed out'
Height / Weight:
Height 5 ft
Actual Weight 79 kg
IBW in k.5
Adjusted BW in k.9
Pertinent Past Medical History: CKD III
- Vital Signs / Lab Results
Temp Pulse Resp BP Pulse Ox
98.5 F 78 18 148/78 96
02/11/24 08:00 02/11/24 08:00 02/11/24 08:00 02/11/24 08:00 02/11/24 08:00
Lab Results - Hematology
02/10/24
23:54
WBC 10.0
Lab Results - Chemistry
02/10/24 02/11/24
23:54 06:06
BUN 43 H 42 H
Creatinine 1.1 H 1.0
Estimated Creat Clear 36
Albumin 3.2 L
02/10/24 02/11/24
23:54 06:06
Lactic Acid 1.2 1.5
Lab Results - Urine
02/11/24
00:01
Urine Nitrite (Reflex) Negative
Leukocyte Esterase Rfl Negative
Microbiology Results
02/11/24 00:01 Influenza Types A & B (EFE) - Final
Nasal Swab Negative for Influenza A & B, NAAT
Negative results must be combined with clinical observations
and patient history.
Nucleic Acid Amplification test (NAAT)performed on the
[employer] platform.
--- NOTE | 2024-02-11 11:21 | W.PN.UPDATE ---
Update Note
Progress Note Update
Seen and examined independent of overnight physician. Nonbillable note. Per daughter at bedside patient is alert awake and eating. States she was lethargic with morphine.
General: Well Nourished, No Apparent Distress and Comfortable
HEENT: Moist mucous membranes, PERRLA and Other (No JVD.)
Respiratory: Other (Decreased BS at bases - otherwise clear. No wheezing or rales.)
Cardiac: S1/S2, Regular Rhythm and Murmur (II/ MARY)
GI: Soft, Non Tender, Non Distended and Normal Bowel Sounds
Rectal: Deferred by Provider
Genito-urinary: Deferred by me
Musculoskeletal: No Edema
Skin: Warm and Dry
Neuro: Awake and Alert
Psych: Calm
Acute toxic metabolic encephalopathy likely secondary to opioids
Marginal Hypoxia
HX COPD
Hemodynamically stable
- Procalcitonin not impressive.
- CXR no acute cardiopulmonary process. Low lung volumes with bilateral subsegmental atelectasis.
- White count normal. Afebrile. DC antibiotics and observe. Influenza negative. Follow-up on the blood culture data.
- Incentive spirometry
S/P Lt Hip ORIF ( 02/08/24) s/p mechanical fall with Lt hip Fx
- PT/OT
-Tylenol as needed for pain control
HC COPD
- No evidence of acute exacerbation / no active wheezing.
ASCVD
Paroxysmal A-Fib
Severe s/p TAVR
- Stable.
- cont REGIONAL FACILITIES MANAGER Eliquis.
Chronic HFrEF
- Stable. Patient does not appear grossly volume overloaded.
- Continues usual diuretic regimen.
- Follow I/Os, daily weights, etc.
DMT2
- Stable. Hold PO medications (only on glipizide twice weekly?)
- ad ISS low
Constipation
- Bowel regimen.
Acute urinary retention overnight likely secondary decreased mobility and post surgery
-Trial of voiding once more ambulatory
Dysphagia
-Patient was eval by speech yesterday and recommended pur�ed diet.
DVT Px: on Eliquis
Code: Full code
Discussed with daughter at bedside in complete details.
Dispo-monitor off antibiotics. Wean oxygen. PT OT.
--- NOTE | 2024-02-11 11:38 | CM ---
Spoke with patient's daughter via phone
Initial assessment completed; chart reviewed: acute metabolic encephalopathy likely secondary to opioids; history of COPD
Patient was readmitted to from [facility]; s/p Left Hip ORIF on 02/07
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
She has been living with her daughter for 3 years in a 1 story, 3rd floor condo; no stairs to enter; elevator access
PLOF: prior to her Fall and previous hospitalization, patient ambulated with [facility]; required assistance with ADLs
Plan: Return to [facility] when medically stable IF daughter is agreeable with that facility and bed is available
[2024-02-11] MEDS: STERILE WATER FOR INJECTION IV (12:43)
[2024-02-11 17:20] LABS: Glucose - Point of Care 161 mg/dl (70-99)
[2024-02-11] MEDS: NOVOLOG FLEXPEN-LOW RESISTANCE 1 UNITS SC (17:26)
[2024-02-11] MEDS: SENNA SYRUP 8.80000000000000071 MG PO (21:08)
[2024-02-11 21:33] LABS: Glucose - Point of Care 193 mg/dl (70-99)
[2024-02-11] MEDS: LEXAPRO 10 MG PO (23:03)
[2024-02-11] MEDS: PRED FORTE 1% EYE DROPS 2 DROP LEFT EYE (23:04)
[2024-02-11] MEDS: COSOPT EYE DROPS 1 DROP RIGHT EYE (23:05)
[2024-02-11] MEDS: LUMIGAN 0.01% 1 DROP RIGHT EYE (23:05)
[2024-02-12] VITALS (7 sets, daily range): BP systolic 149–177; BP diastolic 76–101; PULSE 78; O2SAT 97; BMI 33.6
[2024-02-12] MEDS: STERILE WATER FOR INJECTION IV ×4 (01:13→22:20)
[2024-02-12] MEDS: PULMICORT 0.5 MG INH ×2 (07:21→18:06)
[2024-02-12] MEDS: NOVOLOG FLEXPEN-LOW RESISTANCE 3 UNITS SC (08:00)
[2024-02-12 08:48] LABS: Hematocrit 34.9 % (37.0-47.0); Hemoglobin 11.2 g/dL (12.0-16.0); Mean Corp Hgb Conc. 32.1 g/dL (33.0-37.0); Mean Corpuscular Hgb 29.7 pg (27.0-31.0); Mean Corpuscular Volume 92.6 fL (81.0-99.0); Mean Platelet Volume 12.2 fL (7.4-10.4); Platelet Count 152 10^3/uL (130-400); Red Blood Cell Count 3.77 10^6/uL (4.20-5.40); Red Cell Dist. Width 16.1 % (11.5-14.5); White Blood Cell Count 8.7 10^3/uL (4.8-10.8)
[2024-02-12] MEDS: TYLENOL 650 MG PO ×3 (09:04→20:27)
[2024-02-12] MEDS: LASIX 20 MG PO ×2 (09:04→20:27)
[2024-02-12] MEDS: LOPRESSOR 25 MG PO ×2 (09:05→20:28)
[2024-02-12] MEDS: KCL 10 MEQ PO ×2 (09:05→20:27)
[2024-02-12] MEDS: ELIQUIS 2.5 MG PO ×2 (09:05→20:29)
[2024-02-12 09:10] LABS: Blood Urea Nitrogen 29 mg/dl (7-17); Calcium 8.4 mg/dl (8.4-10.2); Carbon Dioxide 29 mmol/L (22-30); Chloride 109 mmol/L (98-107); Estimated Creatinine Clearance 40 ml/min; Glucose 135 mg/dl (70-99); Potassium 3.9 mmol/L (3.5-5.1); Sodium 141 mmol/L (135-145); eGFR > 60.00
[2024-02-12 09:12] LABS: Glucose - Point of Care 260 mg/dl (70-99)
[2024-02-12] MEDS: NOVOLOG FLEXPEN-LOW RESISTANCE SC ×2 (09:21→16:34)
--- NOTE | 2024-02-12 10:36 | W.PN.HOSP.TC ---
Today's Communication/Plan
-
Monitor off antibiotic
start Disposition
Case management aware
DC peters
Assessment / Plan
Assessment / Plan
General: Well Nourished, No Apparent Distress and Comfortable
HEENT: Moist mucous membranes, PERRLA and Other (No JVD.)
Respiratory: Other (Decreased BS at bases - otherwise clear. No wheezing or rales.)
Cardiac: S1/S2, Regular Rhythm and Murmur (II/ MARY)
GI: Soft, Non Tender, Non Distended and Normal Bowel Sounds
Rectal: Deferred by Provider
Genito-urinary: Deferred by me
Musculoskeletal: No Edema
Skin: Warm and Dry
Neuro: Awake and Alert
Psych: Calm
Acute toxic metabolic encephalopathy likely secondary to opioids
Marginal Hypoxia
HX COPD
Hemodynamically stable
- Procalcitonin not impressive.
- CXR no acute cardiopulmonary process. Low lung volumes with bilateral subsegmental atelectasis.
- White count normal. Afebrile. DC antibiotics and observe. Influenza negative. Follow-up on the blood culture data. Negative so far. Remains afebrile.
- Incentive spirometry
S/P Lt Hip ORIF ( 02/08/24) s/p mechanical fall with Lt hip Fx
- PT/OT
-Tylenol as needed for pain control
HC COPD
- No evidence of acute exacerbation / no active wheezing.
ASCVD
Paroxysmal A-Fib
Severe s/p TAVR
- Stable.
- cont HAND COPER Eliquis.
Chronic HFrEF
- Stable. Patient does not appear grossly volume overloaded.
- Continues usual diuretic regimen.
- Follow I/Os, daily weights, etc.
DMT2
- Stable. Hold PO medications (only on glipizide twice weekly?)
- ad ISS low
Constipation
- Bowel regimen.
Acute urinary retention overnight likely secondary decreased mobility and post surgery
-Trial of voiding once
Dysphagia
-Patient was eval by speech recommended pur�ed diet.
DVT Px: on Eliquis
Code: Full code
Discussed with daughter at bedside in complete details.
Dispo-monitor off antibiotics. Wean oxygen. Case management for disposition
Anticipated Discharge: Within 24 hours
Subjective/Interval History
-
Date of Service: February 12, 2024
By daughter patient is more awake and alert
However does feel like patient is weak
Objective Data
-
Labs:
Laboratory Results
02/12/24
07:38
WBC 8.7
Hgb 11.2 L
Hct 34.9 L
Plt Count 152
Sodium 141
Potassium 3.9
Chloride 109 H
Carbon Dioxide 29
BUN 29 H
Creatinine 0.9
Glucose 135 H
Calcium 8.4
Vital Signs:
Vital Signs
Temp Pulse Resp BP Pulse Ox
98.9 F 74 16 177/91 98
02/12/24 03:26 02/12/24 07:24 02/12/24 07:24 02/12/24 07:20 02/12/24 07:24
I&O
02/11/24 02/12/24 02/13/24
06:59 06:59 06:59
Intake Total 540 / 540 400 / 400
Output Total 840 / 840 1850 / 1850
Balance -300 / -300 -1450 / -1450
[2024-02-12 11:09] LABS: Glucose - Point of Care 216 mg/dl (70-99)
--- NOTE | 2024-02-12 12:18 | CM ---
met with patient and daughter renetta at bedside. monitoring patient off abx,amy peters. ready to start placement efforts.discussesd snf placement with daughter who requested referrals to [facility] and [facility].daughter
will visit [facility] tomorrow.Plan:dc to snf when bed is available.
[2024-02-12] MEDS: NOVOLOG FLEXPEN-LOW RESISTANCE 2 UNITS SC (12:30)
[2024-02-12 15:14] LABS: Glucose - Point of Care 175 mg/dl (70-99)
[2024-02-12 16:34] LABS: Glucose - Point of Care 143 mg/dl (70-99)
[2024-02-12] MEDS: DULCOLAX 10 MG RECTAL (18:44)
[2024-02-12] MEDS: LEXAPRO 10 MG PO (20:29)
[2024-02-12] MEDS: FLEET PHOSPHATE ENEMA-ADULT 135 ML RECTAL (21:45)
[2024-02-12 22:01] LABS: Glucose - Point of Care 237 mg/dl (70-99)
--- NOTE | 2024-02-12 22:11 | PTCARENOTE ---
Assumed care of Pt at 1910. Pt's daughter concerned states 'she is in so much pain, I can't watch her like this.' Bladder scanned by previous RN for 350ml. Pt's abdomen distended. Straight cath order obtained along with fleets enema order. Pt is
incontinent of large amount of urine and small hard stool. Pt changed and repositioned. Bladder scanned for 278ml. Pt does not meet straight cath protocol, explained this to Pt's daughter, Radha, she is agreeable. Pt continues to moan and appear
uncomfortable. Pt's daughter states 'Can we give her the enema? She is in so much pain.' Fleets enema administered. Pt produced large amount of liquid and hard stool on bedpan. Pt changed and repositioned. Pt's daughter went home.
[2024-02-12] MEDS: LUMIGAN 0.01% 1 DROP RIGHT EYE (22:19)
[2024-02-12] MEDS: COSOPT EYE DROPS 1 DROP RIGHT EYE (22:19)
[2024-02-12] MEDS: PRED FORTE 1% EYE DROPS 2 DROP LEFT EYE (22:19)
[2024-02-13] VITALS (9 sets, daily range): BP systolic 143–181; BP diastolic 70–99; PULSE 73–75; O2SAT 95–96; BMI 33.1
[2024-02-13] MEDS: PULMICORT 0.5 MG INH ×2 (07:21→19:38)
[2024-02-13 08:15] LABS: Glucose - Point of Care 136 mg/dl (70-99)
[2024-02-13] MEDS: NOVOLOG FLEXPEN-LOW RESISTANCE SC (08:23)
[2024-02-13] MEDS: STERILE WATER FOR INJECTION IV ×3 (08:25→22:48)
[2024-02-13] MEDS: ELIQUIS 2.5 MG PO ×2 (08:26→20:27)
[2024-02-13] MEDS: LASIX 20 MG PO ×2 (08:27→20:26)
[2024-02-13] MEDS: LOPRESSOR 25 MG PO ×2 (08:27→20:27)
[2024-02-13] MEDS: KCL 10 MEQ PO ×2 (08:27→20:28)
[2024-02-13] MEDS: DESENEX/MITRAZOL/ZEASORB 1 APPLIC TOPICAL ×2 (08:29→20:28)
--- NOTE | 2024-02-13 10:44 | PTCARENOTE ---
Addendum entered by Shannan Molina RN 02/13/24 15:17:
made aware of repeat BP 161/96 for 1100 vitals, no new orders at this time. Patient continues to state no complaints.
Original Note:
Patient's BP this AM 181/96, repeat taken 180/101. HR 70, A-paced on tele monitor. Patient stating no complaints upon assessment by this RN, scheduled lasix and metoprolol administered to patient by this RN - see MAR. made aware, no new orders at
this time.
[2024-02-13 11:49] LABS: Glucose - Point of Care 194 mg/dl (70-99)
[2024-02-13] MEDS: MIRALAX PO ×2 (11:53→12:19)
[2024-02-13] MEDS: NOVOLOG FLEXPEN-LOW RESISTANCE 1 UNITS SC (11:53)
--- NOTE | 2024-02-13 12:27 | CM ---
Addendum entered by Chris Mathur 02/13/24 12:30:
[facility], WALT Betancourt @ [phone] confirmed bed.
Original Note:
Discharge Plan of Care: Anticipate discharge to [facility] on 02/14/24. IMM signed. [facility] confirmed available bed for 02/14/24.
--- NOTE | 2024-02-13 13:05 | PTOTSP ---
ST Acute Care Evaluation
Pt currently presents with mild oral dysphagia 2/2 acute metabolic encephalopathy, dementia, and loose-fitting dentures.
Recommendations:
- Diet UPGRADE to SOFT BITE SIZED SOLIDS with THIN LIQUIDS; meds whole in puree.
- Denture care - please help pt clean out oral cavity and utilize denture adhesive 30-60 minutes before meals.
- Aspiration precautions: HOB upright fully, alternate solids/liquids, small bites/sips.
- HAND BASEBALL SEWER will continue to follow to ensure pt is safely consuming the recommended diet consistencies and to determine whether further objective testing is necessary.
--- NOTE | 2024-02-13 14:26 | W.PN.HOSP.TC ---
Today's Communication/Plan
-
Aspiration precautions
Diet has been advanced
Bowel regimen
Monitor for recurrent urinary retention: Straight cath, may require Quijano catheter
Physical therapy
Placement to half-way facility
Assessment / Plan
Assessment / Plan
Impression:
Reported transient episode of hypoxia while at nursing facility for short time.
Initial concern for metabolic encephalopathy, ruled out.
Status post left hip hemiarthroplasty on 02/07 after mechanical fall and left hip fracture.
Acute on chronic CHF reduced EF treated with IV Lasix over recent admission
Constipation
Acute urine retention
Conditions prior to admission:
1. Severe aortic stenosis status post TAVR.
2. Chronic CHF, reduced EF.
3. Paroxysmal atrial fibrillation.
4. Anticoagulation with Eliquis.
5. Sick sinus syndrome with pacemaker in place.
6. Severe COPD.
7. CAD.
8. Essential hypertension.
9. Diabetes type 2.
10. Dyslipidemia.
11. COVID-19
Plan:
Respiratory status stable and patient does not require supplemental oxygen
She has coarse rhonchi but with no evidence of respiratory distress.
Chest x-ray with clear bilateral kumar.
Remains high aspiration risk, although currently no evidence of active aspiration.
Afebrile
Hemodynamically stable
Procalcitonin within normal limits
Mental status is at the baseline.
Neurologic exam with no focal findings
CT scan of the head with no acute abnormalities
S/P Lt Hip ORIF ( 02/08/24) s/p mechanical fall with Lt hip Fx
- PT/OT
-Tylenol as needed for pain control
-She has not been on opiates as
Indications.
Acute urine retention.
Bladder scan on 02/12/ PVR
Straight cath
Continue bladder scan
Treat constipation
HC COPD
- No evidence of acute exacerbation / no active wheezing.
ASCVD
Paroxysmal A-Fib
Severe s/p TAVR
- Stable.
- cont TRAINMASTER Eliquis.
Chronic HFrEF
- Stable. Patient does not appear grossly volume overloaded.
- Continues usual diuretic regimen.
- Follow I/Os, daily weights, etc.
DMT2
- Stable. Hold PO medications (only on glipizide twice weekly?)
- ad ISS low
Constipation
- Bowel regimen.
Acute urinary retention overnight likely secondary decreased mobility and post surgery
-Trial of voiding once
Dysphagia
-Speech and swallow consult appreciated
Diet has been advanced with aspiration precautions.
DVT Px: on Eliquis
Code: Full code
Plan of care discussed extensively with patient's daughter at the bedside on 02/12.
Anticipated Discharge: 24 - 48 hours
Subjective/Interval History
-
Date of Service: February 13, 2024
Objective Data
-
Vital Signs:
Vital Signs
Temp Pulse Resp BP Pulse Ox
98.8 F 86 18 161/96 96
02/13/24 11:56 02/13/24 11:56 02/13/24 11:56 02/13/24 11:56 02/13/24 11:56
I&O
02/12/24 02/13/24 02/14/24
06:59 06:59 06:59
Intake Total 400 / 400 570 / 570
Output Total 1850 / 1850 425 / 425
Balance -1450 / -1450 145 / 145
Physical Exam
-
General: Well Developed and No Apparent Distress
HEENT: Normocephalic, Atraumatic and Moist Mucous Membranes
Respiratory: Clear to Auscultation
Cardiac: Regular Rhythm and S1/S2; Negative Murmur, Rub or Gallop
GI: Soft, Nontender, Nondistended and Normal Bowel Sounds; Negative Organomegaly
Rectal: Deferred by Provider
Musculoskeletal: No Clubbing, No Cyanosis and No Edema
Skin: Negative Rash
Neuro: Awake, Alert, Oriented (Name only) and Nonfocal/Grossly Intact
--- NOTE | 2024-02-13 15:25 | PTCARENOTE ---
Patient with large episode of incontinence of urine this AM around 0800, changed in bed by this RN and tech. Patient with no urine output in brief noted throughout shift, patient bladder scanned by tech per protocol at 1400 for result of 872 ml.
made aware, stated to straight cath now and to place peters catheter overnight if patient's bladder scan is >400ml on cnc machinist 2nd shift. Patient catheterized by this RN with assistance of Ailyn BRASWELL for total output of 900ml easton urine. Patient states no
concerns at this time.
[2024-02-13 16:39] LABS: Glucose - Point of Care 205 mg/dl (70-99)
[2024-02-13] MEDS: NOVOLOG FLEXPEN-LOW RESISTANCE 2 UNITS SC (16:41)
[2024-02-13] MEDS: LEXAPRO 10 MG PO (20:27)
[2024-02-13 21:29] LABS: Glucose - Point of Care 198 mg/dl (70-99)
[2024-02-13] MEDS: TYLENOL 650 MG PO (22:00)
[2024-02-13] MEDS: COSOPT EYE DROPS 1 DROP RIGHT EYE (22:02)
[2024-02-13] MEDS: LUMIGAN 0.01% 1 DROP RIGHT EYE (22:02)
[2024-02-13] MEDS: PRED FORTE 1% EYE DROPS 2 DROP LEFT EYE (22:02)
[2024-02-14 03:36] VITALS: BP 159/85
[2024-02-14 05:31] VITALS: BMI 33.2
[2024-02-14 07:05] VITALS: BP 171/88
[2024-02-14 07:15] LABS: Glucose - Point of Care 150 mg/dl (70-99)
[2024-02-14] MEDS: PULMICORT 0.5 MG INH (07:25)
[2024-02-14 07:35] LABS: % Basophils 0.8 % (0-2); % Eosinophils 2.9 % (0-6); % Immature Granulocytes 2.3 % (0-0.5); % Lymphocytes 14.1 % (20.5-51.1); % Monocytes 10.9 % (1.7-9.3); Absolute Basophils 0.1 10^3/uL (0-0.2); Absolute Eosinophils 0.3 10^3/uL (0-0.7); Absolute Immature Granulocytes 0.2 10^3/uL (0-0.05); Absolute Lymphocytes 1.4 10^3/uL (1.2-3.4); Absolute Neutrophils 6.6 10^3/uL (1.4-6.5); Hematocrit 34.1 % (37.0-47.0); Hemoglobin 11.1 g/dL (12.0-16.0); Mean Corp Hgb Conc. 32.6 g/dL (33.0-37.0); Mean Corpuscular Hgb 29.8 pg (27.0-31.0); Mean Corpuscular Volume 91.4 fL (81.0-99.0); Mean Platelet Volume 11.8 fL (7.4-10.4); Nucleated Red Blood Cells % 0 %; Platelet Count 228 10^3/uL (130-400); Red Blood Cell Count 3.73 10^6/uL (4.20-5.40); Red Cell Dist. Width 15.6 % (11.5-14.5); White Blood Cell Count 9.6 10^3/uL (4.8-10.8)
[2024-02-14 08:03] LABS: Blood Urea Nitrogen 26 mg/dl (7-17); Calcium 8.6 mg/dl (8.4-10.2); Carbon Dioxide 30 mmol/L (22-30); Chloride 103 mmol/L (98-107); Estimated Creatinine Clearance 40 ml/min; Glucose 131 mg/dl (70-99); Potassium 3.6 mmol/L (3.5-5.1); Sodium 138 mmol/L (135-145); eGFR > 60.00
[2024-02-14] MEDS: LASIX 20 MG PO (09:08)
[2024-02-14] MEDS: KCL 10 MEQ PO (09:08)
[2024-02-14] MEDS: ELIQUIS 2.5 MG PO (09:08)
[2024-02-14] MEDS: LOPRESSOR 25 MG PO (09:09)
[2024-02-14] MEDS: STERILE WATER FOR INJECTION IV ×2 (09:09→13:19)
[2024-02-14] MEDS: MIRALAX 17 GRAMS PO (09:09)
[2024-02-14] MEDS: DESENEX/MITRAZOL/ZEASORB 1 APPLIC TOPICAL (09:12)
[2024-02-14] MEDS: NOVOLOG FLEXPEN-LOW RESISTANCE 1 UNITS SC (09:12)
--- NOTE | 2024-02-14 10:08 | CM ---
Addendum entered by Ros Mena 02/14/24 12:35:
Verified that signed IMM on chart
Addendum entered by Ros Mena 02/14/24 11:55:
Ambulance draft roller picker scheduled for 1330 today
Original Note:
Plan: Discharge to [facility] today via ambulance
Report # [phone]
--- NOTE | 2024-02-14 11:16 | W.DS.TRANS ---
DC Summary - Stage Set Up Worker
-
Discharge Instructions:
Discharge Diagnosis/Procedures Impression:
Reported transient episode of hypoxia while at
nursing facility for short time.
Initial concern for metabolic encephalopathy,
ruled out.
Status post left hip hemiarthroplasty on 02/07
after mechanical fall and left hip fracture.
Acute on chronic CHF reduced EF treated with IV
Lasix over recent admission
Constipation
Acute urine retention
Conditions prior to admission:
1. Severe aortic stenosis status post TAVR.
2. Chronic CHF, reduced EF.
3. Paroxysmal atrial fibrillation.
4. Anticoagulation with Eliquis.
5. Sick sinus syndrome with pacemaker in place.
6. Severe COPD.
7. CAD.
8. Essential hypertension.
9. Diabetes type 2.
10. Dyslipidemia.
11. COVID-19
Diet Other diet
Additional Diets Soft and bite sized with thin liquids
Instructions:
Stand-Alone Forms:
Changes to Home Medications: Yes
Discharge Medications:
DC Medications w/original date entered in [employer]
sbyfyl-xfahbagb-fgwueiw 36,000-114,000-180,000 unit capsule,delay rel (Creon) 1 cap PO QPM Gastrointestinal issue 05/30/22
glipizide 5 mg tablet 5 mg PO TUFR Diabetes 12/22/22
albuterol sulfate 90 mcg/actuation breath activated powder inhaler 2 inh inhalation R Q6 PRN sob/wheezing 08/12/23
budesonide 0.5 mg/2 mL suspension for nebulization (Pulmicort) 0.5 mg inhalation R BID Lung/Breathing Issues 08/12/23
furosemide 20 mg tablet 20 mg PO BID Fluid Retention/Swelling 08/12/23
levocetirizine 5 mg tablet 5 mg PO QPM Allergies 08/12/23
montelukast 10 mg tablet 10 mg PO QPM Lung/Breathing Issues 08/12/23
potassium chloride 10 mEq capsule,extended release 10 meq PO BID Electrolyte Repletion 08/12/23
simvastatin 40 mg tablet 40 mg PO TUFR@1800 High Cholesterol 08/12/23
bimatoprost 0.01 % eye drops (Lumigan) 1 drp RIGHT EYE HS Eye Condition 02/07/24
dorzolamide 22.3 mg-timolol 6.8 mg/mL eye drops 1 drp RIGHT EYE HS Eye Condition 02/07/24
prednisolone acetate 1 % eye drops,suspension 2 drp LEFT EYE HS Eye Condition 02/07/24
escitalopram oxalate 10 mg tablet 10 mg PO HS 02/08/24
metoprolol tartrate 25 mg tablet 25 mg PO BID 02/08/24
acetaminophen 325 mg tablet 650 mg PO Q4H PRN mild pain/fever>100 02/10/24
apixaban 2.5 mg tablet 2.5 mg PO BID 02/10/24
magnesium hydroxide 400 mg/5 mL oral suspension (Milk of Magnesia) 30 ml PO DAILY PRN if no bm x 3 days 02/10/24
miconazole nitrate 2 % topical ointment (Critic-Aid Clear AF (miconazole)) 1 applic topical BID #0 grams 02/10/24
sodium phosphates 19 gram-7 gram/118 mL enema (Fleet Enema) 118 ml GA DAILY PRN if dulcolax is ineffective 02/10/24
polyethylene glycol 3350 17 gram oral powder packet (HealthyLax) 17 g PO DAILY #30 ea 02/14/24
tamsulosin 0.4 mg capsule 0.4 mg PO DAILY #10 caps 02/14/24
Home Medication Changes
Flomax and bowel regime initiated for acute urinary retention.
Pending Results: No
[2024-02-14 11:50] VITALS: BP 126/74
--- NOTE | 2024-02-14 12:54 | PTCARENOTE ---
Patient is up for discharge, awaiting ambulance with garbage pick up man time at 1330 (via [facility]). Case management made aware of patient's request to get a referral at [facility] in case things don't go well at [facility]. Daughter updated and copies of
discharge instructions will be sent with patient.
[2024-02-14] MEDS: FLOMAX 0.400000000000000022 MG PO (13:22)
[2024-02-14] MEDS: NOVOLOG FLEXPEN-LOW RESISTANCE SC (13:24)
[2024-02-14 13:26] LABS: Glucose - Point of Care 153 mg/dl (70-99)
--- NOTE | 2024-02-14 13:40 | PTCARENOTE ---
Report given to Cherrie at [facility] ([phone]), and informed that lisa will be removed on 02/23, per Dr Land. Ambulance team running behind schedule, daughter at bedside.
== END 2024-02-14 16:00 | DRG 206 ==
LOC: 2 NORTH 02:32
PROVIDERS: ADMITTING PHYSICIAN Internal Medicine; ATTENDING PHYSICIAN Internal Medicine; EMERGENCY PHYSICIAN Emergency Medicine; FAMILY PHYSICIAN Student in an Organized Health Care Education/Training Program
DX: R09.02 Hypoxemia (principal); I13.0 Hypertensive heart and chronic kidney disease with heart failure and stage 1 through stage 4 chronic kidney disease, or unspecified chronic kidney disease; I50.22 Chronic systolic (congestive) heart failure; J98.11 Atelectasis; Z95.2 Presence of prosthetic heart valve; E11.22 Type 2 diabetes mellitus with diabetic chronic kidney disease; I35.0 Nonrheumatic aortic (valve) stenosis; J44.9 Chronic obstructive pulmonary disease, unspecified; I69.331 Monoplegia of upper limb following cerebral infarction affecting right dominant side; N18.30 Chronic kidney disease, stage 3 unspecified; I49.5 Sick sinus syndrome; Z79.01 Long term (current) use of anticoagulants; K59.00 Constipation, unspecified; I25.10 Atherosclerotic heart disease of native coronary artery without angina pectoris; I48.0 Paroxysmal atrial fibrillation; E78.5 Hyperlipidemia, unspecified; R13.10 Dysphagia, unspecified; R33.9 Retention of urine, unspecified; Z96.642 Presence of left artificial hip joint; Z98.890 Other specified postprocedural states; Z79.899 Other long term (current) drug therapy; Z95.0 Presence of cardiac pacemaker; Z86.16 Personal history of COVID-19
CPT/HCPCS: 51702; 70450; 71046; 80048; 80053; 81003; 82962; 83605; 84145; 85025; 85027; 87040; 87502; 87811; 92610; 94640; 96361; 96374; 97116; 97163; 97166; 97530; 97535; 99285

== ENCOUNTER → 2024-02-20 12:32 | Outpatient (REF) | payer MEDICARE, OTHER, SELFPAY ==
[2024-02-20 13:16] LABS: % Basophils 0.8 % (0-2); % Eosinophils 1.2 % (0-6); % Immature Granulocytes 0.7 % (0-0.5); % Lymphocytes 10.1 % (20.5-51.1); % Monocytes 6.1 % (1.7-9.3); % Neutrophils 81.1 % (42.2-75.2); Absolute Basophils 0.1 10^3/uL (0-0.2); Absolute Eosinophils 0.2 10^3/uL (0-0.7); Absolute Immature Granulocytes 0.1 10^3/uL (0-0.05); Absolute Lymphocytes 1.2 10^3/uL (1.2-3.4); Absolute Monocytes 0.7 10^3/uL (0.1-0.6); Absolute Neutrophils 9.9 10^3/uL (1.4-6.5); Hematocrit 28.8 % (37.0-47.0); Hemoglobin 9.4 g/dL (12.0-16.0); Mean Corp Hgb Conc. 32.6 g/dL (33.0-37.0); Mean Corpuscular Hgb 30.1 pg (27.0-31.0); Mean Corpuscular Volume 92.3 fL (81.0-99.0); Mean Platelet Volume 11.1 fL (7.4-10.4); Nucleated Red Blood Cells % 0 %; Platelet Count 326 10^3/uL (130-400); Red Blood Cell Count 3.12 10^6/uL (4.20-5.40); Red Cell Dist. Width 15.9 % (11.5-14.5); White Blood Cell Count 12.2 10^3/uL (4.8-10.8)
[2024-02-20 13:25] LABS: Blood Urea Nitrogen 23 mg/dl (7-17); Calcium 8.3 mg/dl (8.4-10.2); Carbon Dioxide 31 mmol/L (22-30); Chloride 104 mmol/L (98-107); Glucose 102 mg/dl (70-99); Potassium 4.1 mmol/L (3.5-5.1); Sodium 136 mmol/L (135-145); eGFR > 60.00
== END ==
LOC: OLABP 12:32
PROVIDERS: ATTENDING PHYSICIAN Student in an Organized Health Care Education/Training Program
DX: J18.9 Pneumonia, unspecified organism (principal); M25.552 Pain in left hip; R26.2 Difficulty in walking, not elsewhere classified; I50.23 Acute on chronic systolic (congestive) heart failure; I49.2 Junctional premature depolarization; E11.9 Type 2 diabetes mellitus without complications; K59.00 Constipation, unspecified
CPT/HCPCS: 36415; 80048; 85025

== ENCOUNTER → 2024-02-22 11:40 | Outpatient (REF) | payer MEDICARE, OTHER, SELFPAY ==
[2024-02-22 13:20] LABS: % Basophils 1.4 % (0-2); % Eosinophils 3.5 % (0-6); % Immature Granulocytes 0.5 % (0-0.5); % Lymphocytes 12.8 % (20.5-51.1); % Monocytes 7.7 % (1.7-9.3); % Neutrophils 74.1 % (42.2-75.2); Absolute Basophils 0.1 10^3/uL (0-0.2); Absolute Eosinophils 0.3 10^3/uL (0-0.7); Absolute Immature Granulocytes 0.1 10^3/uL (0-0.05); Absolute Lymphocytes 1.2 10^3/uL (1.2-3.4); Absolute Monocytes 0.7 10^3/uL (0.1-0.6); Absolute Neutrophils 6.9 10^3/uL (1.4-6.5); Hematocrit 27.7 % (37.0-47.0); Mean Corp Hgb Conc. 32.5 g/dL (33.0-37.0); Mean Corpuscular Hgb 29.8 pg (27.0-31.0); Mean Corpuscular Volume 91.7 fL (81.0-99.0); Nucleated Red Blood Cells % 0 %; Platelet Count 332 10^3/uL (130-400); Red Blood Cell Count 3.02 10^6/uL (4.20-5.40); Red Cell Dist. Width 15.6 % (11.5-14.5); White Blood Cell Count 9.3 10^3/uL (4.8-10.8)
== END ==
LOC: OLABP 11:40
PROVIDERS: ATTENDING PHYSICIAN Student in an Organized Health Care Education/Training Program
DX: J18.9 Pneumonia, unspecified organism (principal); G93.41 Metabolic encephalopathy; M25.552 Pain in left hip; R26.2 Difficulty in walking, not elsewhere classified; I50.23 Acute on chronic systolic (congestive) heart failure; I49.2 Junctional premature depolarization; E11.9 Type 2 diabetes mellitus without complications; K59.00 Constipation, unspecified
CPT/HCPCS: 36415; 85025

== ENCOUNTER → 2024-02-24 08:11 | Outpatient (REF) | payer MEDICARE, OTHER, SELFPAY ==
[2024-02-24 08:54] LABS: % Eosinophils 4.4 % (0-6); % Immature Granulocytes 0.6 % (0-0.5); % Lymphocytes 13.2 % (20.5-51.1); % Monocytes 7.8 % (1.7-9.3); Absolute Basophils 0.1 10^3/uL (0-0.2); Absolute Eosinophils 0.4 10^3/uL (0-0.7); Absolute Immature Granulocytes 0.1 10^3/uL (0-0.05); Absolute Lymphocytes 1.2 10^3/uL (1.2-3.4); Absolute Monocytes 0.7 10^3/uL (0.1-0.6); Absolute Neutrophils 6.7 10^3/uL (1.4-6.5); Hematocrit 29.4 % (37.0-47.0); Hemoglobin 9.2 g/dL (12.0-16.0); Mean Corp Hgb Conc. 31.3 g/dL (33.0-37.0); Mean Corpuscular Hgb 29.5 pg (27.0-31.0); Mean Corpuscular Volume 94.2 fL (81.0-99.0); Mean Platelet Volume 10.9 fL (7.4-10.4); Nucleated Red Blood Cells % 0 %; Platelet Count 327 10^3/uL (130-400); Red Blood Cell Count 3.12 10^6/uL (4.20-5.40); Red Cell Dist. Width 15.4 % (11.5-14.5); White Blood Cell Count 9.2 10^3/uL (4.8-10.8)
== END ==
LOC: OLABPG 08:11
PROVIDERS: ATTENDING PHYSICIAN Student in an Organized Health Care Education/Training Program
DX: I48.92 Unspecified atrial flutter (principal); I50.23 Acute on chronic systolic (congestive) heart failure; R26.2 Difficulty in walking, not elsewhere classified; M25.552 Pain in left hip; G93.41 Metabolic encephalopathy; J18.9 Pneumonia, unspecified organism
CPT/HCPCS: 36415; 85025

== ENCOUNTER → 2024-03-05 11:10 | Outpatient (REF) | payer MEDICARE, OTHER, SELFPAY ==
[2024-03-05 12:39] LABS: Blood Urea Nitrogen 16 mg/dl (7-17); Calcium 8.9 mg/dl (8.4-10.2); Carbon Dioxide 28 mmol/L (22-30); Chloride 104 mmol/L (98-107); Glucose 97 mg/dl (70-99); Potassium 3.6 mmol/L (3.5-5.1); Sodium 139 mmol/L (135-145); eGFR > 60.00
[2024-03-05 13:08] LABS: % Basophils 0.9 % (0-2); % Eosinophils 6.9 % (0-6); % Immature Granulocytes 0.5 % (0-0.5); % Lymphocytes 14.1 % (20.5-51.1); % Monocytes 8.3 % (1.7-9.3); % Neutrophils 69.3 % (42.2-75.2); Absolute Basophils 0.1 10^3/uL (0-0.2); Absolute Eosinophils 0.5 10^3/uL (0-0.7); Absolute Lymphocytes 1.1 10^3/uL (1.2-3.4); Absolute Monocytes 0.6 10^3/uL (0.1-0.6); Absolute Neutrophils 5.3 10^3/uL (1.4-6.5); Hematocrit 29.8 % (37.0-47.0); Hemoglobin 9.7 g/dL (12.0-16.0); Mean Corp Hgb Conc. 32.6 g/dL (33.0-37.0); Mean Corpuscular Hgb 29.8 pg (27.0-31.0); Mean Corpuscular Volume 91.4 fL (81.0-99.0); Mean Platelet Volume 10.3 fL (7.4-10.4); Nucleated Red Blood Cells % 0 %; Platelet Count 240 10^3/uL (130-400); Red Blood Cell Count 3.26 10^6/uL (4.20-5.40); Red Cell Dist. Width 15.4 % (11.5-14.5); White Blood Cell Count 7.7 10^3/uL (4.8-10.8)
== END ==
LOC: OLABP 11:10
PROVIDERS: ATTENDING PHYSICIAN Family Medicine
DX: G93.41 Metabolic encephalopathy (principal); I50.23 Acute on chronic systolic (congestive) heart failure
CPT/HCPCS: 80048; 85025

== ENCOUNTER → 2024-03-12 11:45 | Outpatient (REF) | payer OTHER, MEDICARE, SELFPAY ==
[2024-03-12 14:25] LABS: Blood Urea Nitrogen 20 mg/dl (7-17); Calcium 8.7 mg/dl (8.4-10.2); Carbon Dioxide 32 mmol/L (22-30); Chloride 102 mmol/L (98-107); Glucose 95 mg/dl (70-99); Potassium 3.7 mmol/L (3.5-5.1); Sodium 139 mmol/L (135-145); eGFR > 60.00
== END ==
LOC: OLABP 11:45
PROVIDERS: ATTENDING PHYSICIAN Family Medicine
DX: E11.9 Type 2 diabetes mellitus without complications (principal); I11.0 Hypertensive heart disease with heart failure; I25.10 Atherosclerotic heart disease of native coronary artery without angina pectoris; J44.9 Chronic obstructive pulmonary disease, unspecified; Z95.0 Presence of cardiac pacemaker; I48.0 Paroxysmal atrial fibrillation; I50.23 Acute on chronic systolic (congestive) heart failure; G93.41 Metabolic encephalopathy; J18.9 Pneumonia, unspecified organism
CPT/HCPCS: 36415; 80048

== ENCOUNTER → 2024-03-14 13:29 | Outpatient (REF) | payer OTHER, MEDICARE, SELFPAY ==
[2024-03-14 14:15] LABS: % Basophils 0.4 % (0-2); % Immature Granulocytes 0.6 % (0-0.5); % Lymphocytes 6.9 % (20.5-51.1); % Monocytes 9.3 % (1.7-9.3); % Neutrophils 82.8 % (42.2-75.2); Absolute Immature Granulocytes 0.1 10^3/uL (0-0.05); Absolute Lymphocytes 0.8 10^3/uL (1.2-3.4); Hematocrit 27.5 % (37.0-47.0); Mean Corp Hgb Conc. 32.7 g/dL (33.0-37.0); Mean Corpuscular Volume 91.7 fL (81.0-99.0); Mean Platelet Volume 10.9 fL (7.4-10.4); Nucleated Red Blood Cells % 0 %; Platelet Count 256 10^3/uL (130-400); Red Cell Dist. Width 15.4 % (11.5-14.5); White Blood Cell Count 10.8 10^3/uL (4.8-10.8)
[2024-03-14 14:34] LABS: ALT (SGPT) < 10 U/L (0-35); AST (SGOT) 17 U/L (14-36); Albumin 2.8 g/dl (3.5-5.0); Alkaline Phosphatase 72 U/L (38-126); Blood Urea Nitrogen 20 mg/dl (7-17); Calcium 8.8 mg/dl (8.4-10.2); Carbon Dioxide 28 mmol/L (22-30); Chloride 105 mmol/L (98-107); Glucose 126 mg/dl (70-99); Potassium 3.8 mmol/L (3.5-5.1); Sodium 139 mmol/L (135-145); Total Bilirubin 0.4 mg/dl (0.2-1.3); eGFR > 60.00
== END ==
LOC: OLABP 13:29
PROVIDERS: ATTENDING PHYSICIAN Family Medicine
DX: E11.9 Type 2 diabetes mellitus without complications (principal); I11.0 Hypertensive heart disease with heart failure; I25.10 Atherosclerotic heart disease of native coronary artery without angina pectoris; J44.9 Chronic obstructive pulmonary disease, unspecified; Z95.0 Presence of cardiac pacemaker; I48.0 Paroxysmal atrial fibrillation; I50.23 Acute on chronic systolic (congestive) heart failure; G93.41 Metabolic encephalopathy; J18.9 Pneumonia, unspecified organism; S72.002D Fracture of unspecified part of neck of left femur, subsequent encounter for closed fracture with routine healing
CPT/HCPCS: 36415; 80053; 85025

== ENCOUNTER 2024-03-15 08:38 | Inpatient (IN) | payer MEDICARE, OTHER, SELFPAY ==
[2024-03-15] VITALS (15 sets, daily range): BP systolic 118–187; BP diastolic 69–126
[2024-03-15] MEDS: DUONEB 3 ML INH (05:18)
[2024-03-15] MEDS: TYLENOL/FEVERALL 650 MG RECTAL (05:18)
[2024-03-15 05:25] LABS: % Basophils 0.5 % (0-2); % Eosinophils 0.1 % (0-6); % Immature Granulocytes 0.6 % (0-0.5); % Lymphocytes 3.9 % (20.5-51.1); % Monocytes 7.3 % (1.7-9.3); % Neutrophils 87.6 % (42.2-75.2); Absolute Basophils 0.1 10^3/uL (0-0.2); Absolute Immature Granulocytes 0.1 10^3/uL (0-0.05); Absolute Lymphocytes 0.6 10^3/uL (1.2-3.4); Absolute Monocytes 1.2 10^3/uL (0.1-0.6); Absolute Neutrophils 14.4 10^3/uL (1.4-6.5); Hematocrit 32.7 % (37.0-47.0); Hemoglobin 10.7 g/dL (12.0-16.0); Mean Corp Hgb Conc. 32.7 g/dL (33.0-37.0); Mean Corpuscular Hgb 29.6 pg (27.0-31.0); Mean Corpuscular Volume 90.3 fL (81.0-99.0); Mean Platelet Volume 10.4 fL (7.4-10.4); Nucleated Red Blood Cells % 0 %; Platelet Count 275 10^3/uL (130-400); Red Blood Cell Count 3.62 10^6/uL (4.20-5.40); Red Cell Dist. Width 15.4 % (11.5-14.5); White Blood Cell Count 16.5 10^3/uL (4.8-10.8)
[2024-03-15 05:42] LABS: COVID-19 Antigen Negative (Negative)
[2024-03-15 05:48] LABS: ALT (SGPT) 14 U/L (0-35); AST (SGOT) 29 U/L (14-36); Albumin 3.4 g/dl (3.5-5.0); Alkaline Phosphatase 94 U/L (38-126); Blood Urea Nitrogen 19 mg/dl (7-17); Calcium 9.3 mg/dl (8.4-10.2); Carbon Dioxide 27 mmol/L (22-30); Chloride 105 mmol/L (98-107); Glucose 178 mg/dl (70-99); Potassium 4.3 mmol/L (3.5-5.1); Sodium 138 mmol/L (135-145); Total Protein 5.8 g/dl (6.3-8.2); eGFR > 60.00
[2024-03-15 05:50] LABS: Lactic Acid 1.7 mmol/L (0.7-2.0)
[2024-03-15 06:09] LABS: NT-proBNP 17700 pg/ml; Troponin I 0.115 ng/ml
--- NOTE | 2024-03-15 06:16 | ED.GENMED ---
History of Present Illness
General
Chief Complaint: Breathing Problem
Time Seen by Provider: 03/15/24 06:09
History of Present Illness
History of Present Illness:
HPI: Patient comes in by ambulance from [facility] due to shortness of breath. The patient does not speak Kinyarwanda and most of the history is obtained from the daughter at bedside. The daughter states that she received a phone call from
[place] indicating that she was being sent to the hospital for shortness of breath. The patient recently had hip replacement and has been at [facility] for rehab. Daughter states that she has been having trouble swallowing recently. She
also states that the doctor at the facility increase diuretic yesterday.
EXAM:
GENERAL: The patient is in mild to moderate respiratory distress
HEENT: Moist oral mucosa
CARDIOVASCULAR: No murmurs, normal heart rate, irregular rhythm, No chest wall tenderness
PULMONARY: Mild to moderate respiratory distress, breath sounds are somewhat decreased equally with faint rales
ABDOMEN: Soft with no peritoneal signs, no tenderness
NEUROLOGIC: Good strength all extremities, no coordination deficits
PSYCHIATRIC: No concerns reported by daughter at bedside (language barrier)
EXTREMITIES: Nontender, 2+ bilateral edema, moves all extremities equally
SKIN: No rash, no lesions
TIME OF INITIAL ENCOUNTER: 6:20 AM
NUMBER AND COMPLEXITY OF PROBLEMS ADDRESSED AT THE ENCOUNTER
� Chronic conditions affecting care: History of CHF and COPD, pleural effusion, aortic stenosis, atrial fibrillation on Eliquis, high blood pressure, CAD, has had pericardial effusion
� Acute Exacerbation and/or Progression of Chronic Illness: This is an acute problem
� Differential Diagnosis includes: Sepsis, pneumonia, bronchitis, CHF exacerbation
AMOUNT AND/OR COMPLEXITY OF DATA TO BE REVIEWED AND ANALYZED
� I performed an independent evaluation of and my interpretation is:
EKG: Sinus 92, left bundle branch block
CT:
X-rays: Increased density at the right base suspicious for pneumonia
Laboratory Studies: White count 16.5, hemoglobin 10.7, normal renal function, lactic 1.7, troponin 0.115, BNP 17,700
Other:
� Review of other/old records: Current troponin similar to prior troponin from July 2023
� Clinical information was obtained by an independent historian: I spoke to the daughter for history at bedside
� Prescriptions/Medications Considered but not given:
� Further testing considered but not performed:
RISK OF COMPLICATIONS AND/OR MORBIDITY OR MORTALITY OF PATIENT MANAGEMENT
� Social determinants of health affecting care: Came in from [facility] (there for rehab)
� Discussion with other providers: Dr. Orta for admission at 7:09 AM
� Escalation of care including admission/observation vs risk of discharge considered: The patient was initially given a DuoNeb as well as Tylenol for fever. Density noted at the right base and since patient has fever to 103.4
and white count of 16.5 I am concerned for pneumonia. She was given a little bit of IV fluids as she also has a history of aortic stenosis. Daughter states PMD diuresed her yesterday. I have ordered Vanco and cefepime as patient was here in the
hospital within the last 90 days.
Past History
Past History
ED Past Medical History: CAD, HTN, Hypercholesterolemia and Valvular disease
ED Past Surgical History: Cardiac
Patient has exhibited threatening behavior?: No
PSI?: No
Social History
Tobacco: Non-smoker
Alcohol: None
Drug: None
Phy Exam
Physical Exam
Physical Exam:
See HPI
Scores
Heart Failure Risk
Heart Failure Risk Score: Not Applicable
Course
Orders/Labs/Results
Orders:
Orders
03/15/24 05:07
Electrocardiogram (*1) Urgent
Reason for Study: Other
Other Reason for Exam: Possible Sepsis
Cardiac Monitoring- Treatment ONCE
IV Insert/Care/Rem.- Treatment PRN
Urinalysis Reflex To Culture Urgent
Date Specimen was Collected: 03/15/24
Time Specimen was Collected: 05:08
O2 Therapy [RESP] Urgent
Titrate/Wean O2 to maintain O2 sat greater than (%): 93
Special Instructions: TO MAINTAIN CONTINUOUS O2 SATS > OR = 93%
Pulse Ox/cont/shift [RESP] Urgent
Quantity: 1
Special Instructions: CONTINUOUS
03/15/24 05:08
EKG- Treatment ONCE
Acetaminophen [Tylenol/Feverall] 650 mg .ROUTE .STK-MED ONE
Ipratropium/Albuterol Sulfate [Duoneb] 3 ml .ROUTE .STK-MED ONE
CR Chest Portable - 1 View Urgent
Comment:
Reason For Exam: SOB/wheezing
Reason Study Needs to be Portable: Patient Unstable
03/15/24 05:11
COVID-19 Antigen Urgent
Source: Nasal Swab
Complete Blood Count/With Diff Urgent
Comprehensive Metabolic Panel Urgent
Lactic Acid Q4H
Comment: ON ICE, CANCEL 2ND ORDER IF FIRST LACTIC ACID LEVEL <2
Pro-BNP [NT-proBNP] Urgent
Troponin I Urgent
Influenza A+B Rapid Molecular Urgent
KUN Source: Nasal Swab
Specimen Description:
03/15/24 05:17
Acetaminophen [Tylenol/Feverall] 650 mg RECTAL NOW STA
03/15/24 05:18
Ipratropium/Albuterol Sulfate [Duoneb] 3 ml INH R NOW ONE
03/15/24 05:24
Blood Culture Urgent
KUN Source: Blood/Venous
Specimen Description:
03/15/24 06:28
Cefepime HCl [Maxipime] 1,000 mg IV NOW STA
03/15/24 06:32
0.9% Sodium Chloride 500 ml [Nss] 500 ml IV BOLUS
03/15/24 06:45
Sterile Water [Sterile Water For Injection] 10 ml .ROUTE .STK-MED ONE
03/15/24 07:05
Vancomycin [Vancocin] 1,500 mg 0.9% Sodium Chloride [Nss] 20 ml 0.9% Sodium Chloride 250 ml [Nss] 250 ml IV NOW
03/15/24 08:00
VANCOMYCIN Pharmacy to Dose [VANCOCIN Pharmacy to Dose] 1 each Pharmacy To Prepare [Call Pharmacy To Prepare] 0 ml IV PER PROTOCOL
Abnormal Lab Results
03/15/24
05:11
WBC 16.5 H 10^3/uL
(4.8-10.8)
RBC 3.62 L 10^6/uL
(4.20-5.40)
Hgb 10.7 L g/dL
(12.0-16.0)
Hct 32.7 L %
(37.0-47.0)
MCHC 32.7 L g/dL
(33.0-37.0)
RDW 15.4 H %
(11.5-14.5)
Abs Immat Gran (auto) 0.1 H 10^3/uL
(0-0.05)
Absolute Neuts (auto) 14.4 H 10^3/uL
(1.4-6.5)
Absolute Lymphs (auto) 0.6 L 10^3/uL
(1.2-3.4)
Absolute Monos (auto) 1.2 H 10^3/uL
(0.1-0.6)
Immature Gran % 0.6 H %
(0-0.5)
Neutrophils % 87.6 H %
(42.2-75.2)
Lymphocytes % 3.9 L %
(20.5-51.1)
BUN 19 H mg/dl
(7-17)
Glucose 178 H mg/dl
(70-99)
Troponin I 0.115 H* ng/ml
Total Protein 5.8 L g/dl
(6.3-8.2)
Albumin 3.4 L g/dl
(3.5-5.0)
03/15/24 05:11
03/15/24 05:11
Vital Signs
Initial and Last Documented VS:
Initial Vital Signs
BP
187/126
03/15/24 04:48
Last Documented Vital Signs
Temp Pulse Resp BP Pulse Ox
99.9 F 80 20 150/93 97
03/15/24 06:49 03/15/24 06:53 03/15/24 06:53 03/15/24 06:53 03/15/24 06:53
*Critical Care Note
Total Time (30-74mins, 75-104mins- exclusive of procedures): Not Applicable
ED Attending Note
-
Portions of this chart may have been created with voice recognition software.� Occasional wrong word or��sound alike� substitutions may have occurred due to the inherent limitations of voice recognition software.
Discharge Plan
Departure
Patient Disposition: Admit
Date of Disposition: 03/15/24
Time of Disposition: 07:08
Presentation/result/management discussed w/ accepting MD/DO: Hospitalist
Discharge Problem:
Sepsis due to pneumonia
Prescriptions:
No Action
Creon 36,000-114,000- 180,000 unit Capsule,Delayed Release(Dr/Ec)
1 cap PO QPM
glipizide 5 mg Tablet
5 mg PO TUFR
potassium chloride 10 mEq capsule, extended release
10 meq PO BID
simvastatin 40 mg tablet
40 mg PO TUFR@1800
montelukast 10 mg tablet
10 mg PO QPM
furosemide 20 mg tablet
20 mg PO BID
levocetirizine 5 mg tablet
5 mg PO QPM
budesonide [Pulmicort] 0.5 mg/2 mL suspension for nebulization
0.5 mg inhalation R BID
albuterol sulfate 90 mcg/actuation aerosol powdr breath activated
2 inh inhalation R Q6 PRN (Reason: sob/wheezing)
Lumigan 0.01 % Drops
1 drp RIGHT EYE HS
Rx Instructions:
right eye
dorzolamide-timolol 22.3-6.8 mg/mL Drops
1 drp RIGHT EYE HS
Rx Instructions:
right eye
prednisolone acetate 1 % Drops,Suspension
2 drp LEFT EYE HS
Rx Instructions:
left eye
metoprolol tartrate 25 mg Tablet
25 mg PO BID
escitalopram oxalate 10 mg Tablet
10 mg PO HS
Critic-Aid Clear AF(miconazol) 2 % Ointment
1 applic topical BID Qty: 0 0RF
acetaminophen 325 mg Tablet
650 mg PO Q4H PRN (Reason: mild pain/fever>100)
magnesium hydroxide [Milk of Magnesia] 400 mg/5 mL Suspension
30 ml PO DAILY PRN (Reason: if no bm x 3 days)
Fleet Enema 19-7 gram/118 mL Enema
118 ml DC DAILY PRN (Reason: if dulcolax is ineffective)
apixaban 2.5 mg Tablet
2.5 mg PO BID
polyethylene glycol 3350 [HealthyLax] 17 gram Powder In Packet
17 g PO DAILY Qty: 30 0RF
tamsulosin 0.4 mg Capsule
0.4 mg PO DAILY Qty: 10 0RF
Referrals:
Anam Merritt MD [Family Provider] -
Interventions
Interventions:
*Risk Screen - Suicide Last Done: 03/15/24 05:14
*General Assessment Last Done: 03/15/24 05:14
*Neglect/Abuse Screening Last Done: 03/15/24 05:14
ED- Fall Risk Assessment Last Done: 03/15/24 05:28
*ED COVID-19 Vaccine History Last Done: 03/15/24 05:14
ED- Cardiac Assessment Last Done: 03/15/24 05:28
ED- Pulmonary Assessment Last Done: 03/15/24 05:28
Discharge Date and Time
Print Language: ZAMBIAN
[2024-03-15] MEDS: MAXIPIME 1000 MG IV (06:51)
[2024-03-15] MEDS: NSS 500 IV (06:51)
[2024-03-15] MEDS: VANCOCIN 300 MG IV (07:31)
[2024-03-15] MEDS: VANCOCIN 300 ML IV (07:31)
[2024-03-15 09:32] LABS: Troponin I 0.254 ng/ml
--- NOTE | 2024-03-15 10:00 | PTCARENOTE ---
Admitted to IMU, monitors placed. Admission completed. Received on 6L NC - 98% sao2. LC diminished. Purewick attempt failed with stool incontinence. [place] speaking with some Persian- daughter mentioned industrial servicer does not work for her.
--- NOTE | 2024-03-15 10:47 | HPS.HSE ---
Family Physician
-
Family Physician: Anam Merritt MD
Chief Complaint
-
Dyspnea, from [facility]
History of Present Illness
Patient is an 88-year-old female with HFrEF (LVEF 35 to 40%), AF (on Eliquis), aortic stenosis s/p TAVR, COPD, CAD, hypertension, pleural effusion, orthostatic hypotension, H/O pericardial effusion, S/P recent hip replacement that presented to the
ED today from [facility] with complaint of shortness of breath.
The patient does not speak Palauan, history was obtained from ED provider as well as her daughter who was at the bedside.
She was admitted to [facility] for rehab following a recent hip replacement.� Daughter stated she received a phone call from [place] that indicated the patient was short of breath and was sent to the hospital.� She does mention that her
mother has been having difficulty with swallowing more recently.� Also she was at the doctor's office yesterday within the facility, they increased her diuretic dosage at that time.
Upon arrival to the ED had fever of 103.4 �F, was hypoxemic to 88% on room air with improvement to 99% on 6 L supplemental oxygen via nasal cannula.� Otherwise hemodynamically stable.� Labs showed WBC 16.5 with left shift, troponin 0.115, hemoglobin
10.7 with MCV 90.3, otherwise unremarkable.� Chest x-ray with signs of increased opacification of the right lung base, possible consolidation within the mid left lung.� Blood cultures x 2, viral respiratory panel were obtained in the ED.� She was
ordered cefepime and vancomycin empirically.
Medical History
Past Medical History
Past Medical History: Reports CAD, CHF, COPD and HTN
Additional Past Medical History:
S/p TAVR, H/O pleural effusion, H/O pericardial effusion
Past Surgical History: Reports None
Additional Past Surgical History:
TAVR
Appendectomy
Skin cancer excision
PCTA
Social History
Tobacco: Non-smoker
Alcohol: None
Drug: None
Family History
Family History: Not pertinent
Allergies / Home Medications
Allergies reflects when Allergies were last updated in [employer]
Home Medications with original date entered in [employer]
Allergy/Medication List:
NKDA
Review of Systems
-
History Source: Patient and Family
A 12 point ROS was completed and negative except as noted: Yes
Constitutional: Reports Fever, Fatigue and Chills; Denies Night Sweats
Respiratory: Reports Cough and Other (dyspnea); Denies Hemoptysis
Cardiac: Reports No Symptoms
Abdomen/GI: Reports No Symptoms
: Reports No Symptoms
Musculoskeletal: Reports No Symptoms
Skin: Reports No Symptoms
Neurological: Reports No Symptoms
Hematologic/Lymphatic: Reports No Symptoms
Psych: Reports No Symptoms
Physical Exam
Vital Signs
Vital Signs
Temp Pulse Resp BP Pulse Ox
97.7 F 72 17 163/94 98
03/15/24 09:35 03/15/24 10:15 03/15/24 10:15 03/15/24 10:00 03/15/24 09:15
Physical Exam
General: Sweats, Obese and Other (Toxic appearance, non-Palauan speaker, no signs of respiratory distress)
HEENT: NormoCephalic, Anicteric, Moist mucous membranes and Atraumatic
Respiratory: Non Labored Respirations and Other (Coarse breath sounds bilaterally throughout lung kumar,); No Wheezes
Cardiac: S1/S2 and Regular Rhythm; No Murmur, Rub, Gallop, Peripheral Edema or JVD
GI: Soft, Non Tender, Non Distended and Normal Bowel Sounds
Musculoskeletal: No Clubbing, No Cyanosis and No Edema
Skin: Warm and Dry; No Rash or Jaundice
Neuro: Awake, Alert and Other (Intermittent left eye droop, no other FND or cranial nerve deficits noted)
Hematologic/Lymphatic: No Lymphadenopathy
Laboratory Results
-
03/15/24 05:11
03/15/24 05:11
Laboratory Results
Lactic Acid Cancelled 03/15/24 09:15
Total Bilirubin 1.0 mg/dl (0.2-1.3) 03/15/24 05:11
AST 29 U/L (14-36) 03/15/24 05:11
ALT 14 U/L (0-35) 03/15/24 05:11
Alkaline Phosphatase 94 U/L (38-126) 03/15/24 05:11
Troponin I 0.254 ng/ml H* D 03/15/24 08:52
Data Reviewed
-
Diagnostic Radiology: Image Personally Visualized and interpreted and Discussed with Family
Lab Data: Labs Reviewed by me and Discussed with Family
Impression/Plan
-
#Acute hypoxemic respiratory failure
#Community-acquired pneumonia
#Aspiration
-Presented with high-grade fever and leukocytosis, signs of consolidation of lung
-No hypotension or tachycardia, does not meet SIRS criteria for sepsis
-Was hypoxemic in the mid to high 80s on room air, improved with 6 L via nasal cannula
-Blood cultures obtained in ED, started on broad-spectrum antibiotics with cefepime and vancomycin
-Continue with broad-spectrum antibiotics for now, order procalcitonin to trend
-Order streptococcal and Legionella antigens, sputum cultures
-Titrate oxygen for SpO2 88 to 94%, wean as able
-Order VSE
#Elevated serum troponin
# Nonobstructive CAD
-Suspect type II demand ischemia, no chest pain or ischemic ECG changes
-Does have nonobstructive coronary artery disease though no known stents or CABG
-Home medications include beta-sundar, statin; no antiplatelets
-Initial troponin 0.115, Sgarbossa criteria negative
-Trend troponin with serial ECG
-Continue home CAD meds
-Consider outpatient ischemic workup
# Chronic HFrEF
-Likely NICM, last cath with widely patent arteries; last TTE with LVEF 35 to 40%
-Home medications include beta-sundar, loop diuretic; no MRA, SGLT2, WOJCIECH or ARB
-Appears euvolemic, do not suspect decompensation is contributing
-Continued on home regimen
# Severe s/p TAVR
-Valve examines normal, no signs of insufficiency
# COPD
-No recent PFTs to review former smoking history associated
-Home regimen includes budesonide, DuoNebs, as needed albuterol
-No signs of CO2 retention today, exam without wheezes
-Do not think COPD exacerbation is contributing to her admission
-Continued on home regimen
# Orthostatic hypotension
-Currently on midodrine 5 mg twice daily
# S/p recent left hip replacement
DVT prophylaxis: Home Eliquis 2.5 mg twice daily
Diet: Full liquids for now, speech and swallow disease
CODE STATUS: full code
--- NOTE | 2024-03-15 12:54 | PTOTSP ---
SPEECH THERAPY SWALLOW EVALUATION:
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 Currently with fever and elevated WBC. Per chart review, Chest x-ray
with signs of increased opacification of the right lung base, possible consolidation within the mid left lung. Patient is at risk for aspiration and related complications given confusion and lethargy. Could consider Videofluoroscopic swallowing
Study to further assess swallow physiology, though patient is unlikely to be able to meet VSE requirements (taking various consistencies of p.o. liquids/solids) given guarded bolus acceptance at bedside. Discussion with Dr. Altamirano, who indicated he
would like to try to complete VSE as able. Speech therapy to follow with additional recommendations following VSE. Recommend strict NPO until VSE with non-oral medication/nutrition/hydration.
RECOMMEND:
1) Videofluoroscopic swallowing Study
2) strict NPO until VSE with non-oral medication/nutrition/hydration
3) ST to follow
[2024-03-15] MEDS: ZOSYN 50 IV ×2 (14:10→21:04)
[2024-03-15 14:29] LABS: Glucose - Point of Care 217 mg/dl (70-99)
[2024-03-15] MEDS: NOVOLOG FLEXPEN-MODERATE RESISTANCE SC ×2 (16:00→20:27)
--- NOTE | 2024-03-15 16:32 | PHA.VAN.IN ---
Assessment
- Assessment
Renal Function: Appears similar to baseline
Concomitant Antimicrobials: piperacillin/tazobactam
AUC Dosing Plan
- Dosing Variables
Dosing Weight (kg): 80
Dosing CrCl (ml/min): 40
Vd coefficient (L/kg): 0.7
- Empiric Dosing
Initial / Loading Dose: 1500mg - 03/15 07:31
Maintenance Regimen: Vanc 1000mg Q24H starting 03/16 0600
Estimated AUC (mcg*h/mL): 484
Estimated Peak (mcg*h/mL): 30
Estimated Trough (mcg/ml): 12.7
Estimated Half Life (H): 18.4
- Monitoring
No levels ordered at this time: consider levels in next few days
MRSA Screen: Ordered per protocol
Pharmacokinetics Vancomycin I
- -
Patient Age: 88
Patient Sex: Female
Vancomycin Day #: 1
Indication: Pulmonary/Respiratory
Requesting Provider: Dr. Altamirano
Pertinent Antimicrobial Allergies:
penicillins - passed out
Height / Weight:
Height 5 ft
Actual Weight 79.6 kg
Pertinent Past Medical History: BMI ~34
- Vital Signs / Lab Results
Temp Pulse Resp BP Pulse Ox
98.2 F 70 14 118/77 99
03/15/24 16:00 03/15/24 12:00 03/15/24 12:00 03/15/24 12:00 03/15/24 12:00
Lab Results - Hematology
03/15/24
05:11
WBC 16.5 H
Lab Results - Chemistry
03/15/24
05:11
BUN 19 H
Creatinine 0.9
Albumin 3.4 L
03/15/24 03/15/24
05:11 09:15
Lactic Acid 1.7 Cancelled
Microbiology Results
03/15/24 05:11 Influenza Types A & B (EFE) - Final
Nasal Swab Negative for Influenza A & B, NAAT
Negative results must be combined with clinical observations
and patient history.
Nucleic Acid Amplification test (NAAT)performed on the
[employer] platform.
[2024-03-15] MEDS: LASIX PO (16:33)
[2024-03-15] MEDS: LASIX 40 MG IV (18:00)
[2024-03-15] MEDS: ZYRTEC PO (18:01)
[2024-03-15] MEDS: SINGULAIR PO (18:01)
[2024-03-15] MEDS: ZENPEP DELAYED RELEASE CAPSULE PO (18:01)
[2024-03-15 18:05] LABS: Glucose - Point of Care 156 mg/dl (70-99)
--- NOTE | 2024-03-15 18:25 | PTCARENOTE ---
Weaned o2 to 3L NC remains 97 on it. AA answers some questions appropriately. CT completed this pm. NPO status maintained - oral care completed. POC d/w daughter. NPO/ labs d/w Dr. Adarsh gardner adjusted- continue serial troponin/ ekg.
[2024-03-15] MEDS: PULMICORT 0.5 MG INH (19:40)
[2024-03-15] MEDS: ProAIR HFA INHALER 2 PUFF INH (19:43)
[2024-03-15] MEDS: ANTIFUNGAL CLEAR 1 APPLIC TOPICAL (20:27)
[2024-03-15] MEDS: COSOPT EYE DROPS 1 DROP RIGHT EYE (20:28)
[2024-03-15] MEDS: LOPRESSOR 25 MG PO (20:28)
[2024-03-15] MEDS: KCL PO (20:28)
[2024-03-15] MEDS: PRED FORTE 1% EYE DROPS 2 DROP LEFT EYE (20:28)
[2024-03-15] MEDS: ELIQUIS 5 MG PO (20:28)
[2024-03-15] MEDS: LEXAPRO PO (20:28)
[2024-03-15] MEDS: XALATAN OPHTHALMIC SOLUTION 1 DROP RIGHT EYE (20:29)
[2024-03-15 20:55] LABS: Troponin I 0.224 ng/ml
[2024-03-15 21:09] LABS: Urine Albumin Trace (Neg - Trace); Urine Bilirubin Negative (Negative); Urine Character Slightly Cloudy (Clear); Urine Color Yellow; Urine Glucose Negative (Negative); Urine Ketone Negative (Negative); Urine Leukocyte 2+ (Negative); Urine Nitrite Positive (Negative); Urine Occult Blood 4+ (Negative); Urine Urobilinogen Negative (Neg - 1+)
[2024-03-15 21:21] LABS: Urine Bacteria Moderate (Negative); Urine Red Blood Cell 26-30 /HPF (0-2)
[2024-03-15 23:17] LABS: Glucose - Point of Care 200 mg/dl (70-99)
[2024-03-15] MEDS: NOVOLOG FLEXPEN-MODERATE RESISTANCE 3 UNITS SC (23:21)
[2024-03-16] VITALS (8 sets, daily range): BP systolic 126–155; BP diastolic 63–89; BMI 35.0
--- NOTE | 2024-03-16 01:24 | PTCARENOTE ---
assumed care of patient, pt American speaking but able to say some words in Lao. pt incontinent of urine, new PW applied, some audible wheezes noted. got inhaler before bed. oxygen decreased to 2L-98%. care ongoing.
[2024-03-16] MEDS: ZOSYN 50 IV ×4 (01:37→20:23)
[2024-03-16 04:14] LABS: % Basophils 0.6 % (0-2); % Eosinophils 0.1 % (0-6); % Immature Granulocytes 0.5 % (0-0.5); % Lymphocytes 7.8 % (20.5-51.1); % Monocytes 8.8 % (1.7-9.3); % Neutrophils 82.2 % (42.2-75.2); Absolute Basophils 0.1 10^3/uL (0-0.2); Absolute Immature Granulocytes 0.1 10^3/uL (0-0.05); Absolute Lymphocytes 0.8 10^3/uL (1.2-3.4); Absolute Monocytes 0.9 10^3/uL (0.1-0.6); Absolute Neutrophils 8.5 10^3/uL (1.4-6.5); Hematocrit 28.2 % (37.0-47.0); Hemoglobin 9.2 g/dL (12.0-16.0); Mean Corp Hgb Conc. 32.6 g/dL (33.0-37.0); Mean Corpuscular Hgb 29.6 pg (27.0-31.0); Mean Corpuscular Volume 90.7 fL (81.0-99.0); Mean Platelet Volume 10.5 fL (7.4-10.4); Nucleated Red Blood Cells % 0 %; Platelet Count 231 10^3/uL (130-400); Red Blood Cell Count 3.11 10^6/uL (4.20-5.40); Red Cell Dist. Width 15.4 % (11.5-14.5); White Blood Cell Count 10.3 10^3/uL (4.8-10.8)
[2024-03-16 04:24] LABS: Blood Urea Nitrogen 22 mg/dl (7-17); Calcium 8.9 mg/dl (8.4-10.2); Carbon Dioxide 32 mmol/L (22-30); Chloride 103 mmol/L (98-107); Estimated Creatinine Clearance 33 ml/min; Glucose 142 mg/dl (70-99); Magnesium 1.9 mg/dl (1.6-2.3); Potassium 3.7 mmol/L (3.5-5.1); Sodium 138 mmol/L (135-145); eGFR 48.33
[2024-03-16 04:42] LABS: Troponin I 0.364 ng/ml
[2024-03-16] MEDS: NOVOLOG FLEXPEN-MODERATE RESISTANCE SC ×2 (05:32→15:31)
[2024-03-16 05:41] LABS: Glucose - Point of Care 148 mg/dl (70-99)
[2024-03-16] MEDS: PULMICORT 0.5 MG INH ×2 (07:49→19:59)
--- NOTE | 2024-03-16 08:12 | PN.CDI ---
CDI
- -
CDI:
Physician Documentation Request
Admit Date: 03/15/24 08:38
Dear Doctor Adarsh,
Please review the following and provide your response in the progress notes.
Clinical Indicators:
Pt admitted with aspiration pneumonia and acute respiratory failure
03/15/24 H&P: ' AF (on Eliquis)'
previous visit 02/13/24 hospitalist progress note: 'Paroxysmal atrial fibrillation.'
If possible, please provide further specificity regarding atrial fibrillation, such as:
Paroxysmal atrial fibrillation - terminates spontaneously or with intervention within 7 days of onset
Persistent atrial fibrillation - episodes of continuous AF that last more than 7 days and do not self-terminate
Permanent atrial fibrillation - when a decision has been made to accept the presence of AF and there is no further attempt to restore or maintain sinus rhythm
Other - please specify
Use of terms such as suspected, likely, concern for, or probable (associated with a specific diagnosis that is being evaluated, monitored, or treated as if it exists) are acceptable and can be coded in the inpatient setting, when documented at the
time of discharge.
Thank you,
Chanell Scruggs RN, BSN
CDI Specialist
Available via [place] [employer]
Please use your independent medical judgment in providing your response.
--- NOTE | 2024-03-16 08:20 | PN.CDI ---
CDI
- -
CDI:
Physician Documentation Request
Admit Date: 03/15/24 08:38
Dear Doctor Adarsh,
Please review the following and provide your response in the progress notes.
Clinical Indicators:
Pt admitted with aspiration pneumonia and acute respiratory failure.
03/15 ER noted ' Sepsis due to pneumonia'
Selected Entries
03/15/24
04:51 03/15/24
05:00 03/15/24
05:06
Temp 103.4 F H
Pulse 105 93
Resp Rate 28
Laboratory Tests
03/15/24 03/15/24
05:11 08:52
WBC 16.5 H
Procalcitonin 1.20 H
Please clarify which most accurately describes the patient:
Sepsis
Systemic manifestations of infection, with 2 or more SIRS criteria which include:
Fever > 100.4 degrees F or hypothermia < 96.8 degrees F
Leukocytosis - WBC > 12,000 or leukopenia, WBC < 4,000 or > 10% bands
Tachycardia - > 90 beats per minute
Tachypnea - RR > 20 breaths per minute or PaCO2 < 32 mmHg
Source: Merck Manual 2013
Indicate if there is associated organ dysfunction, such as renal or respiratory failure
Sepsis has been ruled out
Other
Use of terms such as suspected, likely, concern for, or probable (associated with a specific diagnosis that is being evaluated, monitored, or treated as if it exists) are acceptable and can be coded in the inpatient setting, when documented at the
time of discharge.
Thank you,
Chanell Scruggs RN, BSN
CDI Specialist
Available via [place] Text
Please use your independent medical judgment in providing your response.
[2024-03-16] MEDS: LASIX 80 MG IV (08:50)
[2024-03-16] MEDS: ANTIFUNGAL CLEAR 1 APPLIC TOPICAL ×2 (08:50→21:51)
[2024-03-16] MEDS: KCL 10 MEQ PO ×2 (10:07→20:23)
[2024-03-16] MEDS: ELIQUIS 5 MG PO ×2 (10:07→20:23)
[2024-03-16] MEDS: LOPRESSOR 25 MG PO ×2 (10:07→20:23)
--- NOTE | 2024-03-16 10:51 | PTOTSP ---
Video Swallow Examination
Prolonged and disorganized oral processing with mild oral stasis. Delayed swallow onset.
While no laryngeal penetration or aspiration was identified, the patient is considered at increased risk of such given swallow delay and impaired cognitive status.
Recommend
1. IDDSI 4 (pureed) and thin liqids
2. Supervision
3. Meds crushed in applesauce.
4. Aspiration precaution.
[2024-03-16 11:54] LABS: Glucose - Point of Care 132 mg/dl (70-99)
--- NOTE | 2024-03-16 11:57 | W.PN.HOSP.TC ---
Today's Communication/Plan
-
Continue with antibiotics
Plan to repeat blood cultures in 48 hours
Wean oxygen
Assessment / Plan
Assessment / Plan
# Gram-negative septicemia -- E. coli, resistance pending
# Urinary tract infection
-Suspect that this is a urinary source as E. coli would be an unusual pulmonary finding
-Urinalysis on arrival with findings consistent of cystitis, leukocytosis and fever
-Currently on IV Zosyn for empiric coverage of aspiration pneumonia versus pneumonitis
-Suspect that her sepsis could be initiating event that led to this hospitalization
Plan
-Continue with IV Zosyn for broad-spectrum gram-negative coverage
-Plan to repeat blood cultures x 2 at 48 hours
-Consider holding high home Lasix dose if BP soft
#Acute hypoxemic respiratory failure
#Aspiration pneumonitis
-Was hypoxemic in the mid to high 80s on room air, improved with 6 L via nasal cannula
-Suspect she aspirated in the context of encephalopathy from sepsis
-Legionella and streptococcal antigens were negative, sputum culture with normal moon
-Has quickly improved from a respiratory standpoint, consistent with chemical pneumonitis
-Most recently on 2 L via NC with SpO2 high 90s
Plan
-Continue with home COPD medications
-Wean supplemental oxygen as possible, SpO2 goal 88 to 94%
# Type II demand ischemia
# Nonobstructive CAD
-Suspect type II demand ischemia, no chest pain or ischemic ECG changes
-Home medications include beta-sundar, statin; no antiplatelets
-Sgarbossa criteria negative; Troponin trend was flat, not consistent with ACS
# Chronic HFrEF
-Likely NICM, last cath with widely patent arteries; last TTE with LVEF 35 to 40%
-Home medications include beta-sundar, loop diuretic; no MRA, SGLT2, WOJCIECH or ARB
-Appears euvolemic, do not suspect decompensation is contributing
-Continued on home regimen
# Severe s/p TAVR
-Valve examines normal, no signs of insufficiency
# COPD
-No recent PFTs to review former smoking history associated
-Home regimen includes budesonide, DuoNebs, as needed albuterol
-No signs of CO2 retention today, exam without wheezes
-Do not think COPD exacerbation is contributing to her admission
-Continued on home regimen
# Orthostatic hypotension
-Currently on midodrine 5 mg twice daily
# S/p recent left hip replacement
DVT prophylaxis: Home Eliquis 2.5 mg twice daily
Diet: IDDSI�4, meds crushed in applesauce
CODE STATUS: full code
Anticipated Discharge: 24 - 48 hours
Subjective/Interval History
-
Date of Service: March 16, 2024
No acute events overnight. Patient appears much more alert and less toxic than yesterday on admission. Limited Tajik but she is able to provide brief review of systems in which she denied chest pain or shortness of breath. Says she does not
have any fevers either, denies any general pain
Objective Data
-
Labs:
Laboratory Results
03/16/24
03:45
WBC 10.3
Hgb 9.2 L
Hct 28.2 L
Plt Count 231
Sodium 138
Potassium 3.7
Chloride 103
Carbon Dioxide 32 H
BUN 22 H
Creatinine 1.1 H
Glucose 142 H
Calcium 8.9
Vital Signs:
Vital Signs
Temp Pulse Resp BP Pulse Ox
98.5 F 69 15 138/71 98
03/16/24 07:51 03/16/24 08:55 03/16/24 08:55 03/16/24 08:55 03/16/24 08:55
I&O
03/15/24 03/16/24 03/17/24
06:59 06:59 06:59
Intake Total 100 / 100
Output Total 700 / 700
Balance -600 / -600
Review of Systems
-
Unable to obtain full review of systems at this time due to: Language Barrier
History Source: Patient
All other systems: Reviewed and negative
Physical Exam
-
General: No Apparent Distress, Comfortable and Obese
HEENT: Normocephalic, Atraumatic, Moist Mucous Membranes and Anicteric
Respiratory: Clear to Auscultation and Non Labored Respirations; Negative Wheezes, Rales or Rhonchi
Cardiac: Regular Rhythm and S1/S2; Negative Murmur, Rub or JVD
GI: Soft, Nontender, Nondistended and Normal Bowel Sounds
Musculoskeletal: No Clubbing, No Cyanosis and No Edema
Skin: Warm, Dry and Normal Turgor; Negative Rash
Neuro: AO x 3, Nonfocal/Grossly Intact, Central Nerve's Intact and Other (Chronic left eye droop that is improved from yesterday)
Data Reviewed
-
CT Scan: Image personally visualized and interpreted and Report Reviewed by me
Labs: Labs Reviewed by me
[2024-03-16] MEDS: LASIX 40 MG IV (15:55)
[2024-03-16 17:18] LABS: Glucose - Point of Care 185 mg/dl (70-99)
[2024-03-16] MEDS: LIPITOR 20 MG PO (18:37)
[2024-03-16] MEDS: ZENPEP DELAYED RELEASE CAPSULE 3 CAPSULE PO (18:37)
[2024-03-16] MEDS: SINGULAIR 10 MG PO (18:37)
[2024-03-16] MEDS: NOVOLOG FLEXPEN-MODERATE RESISTANCE 1 UNITS SC (18:37)
[2024-03-16] MEDS: ZYRTEC 5 MG PO (18:38)
--- NOTE | 2024-03-16 18:38 | PTCARENOTE ---
OOB few hours this pm, mod assist 2 to bsc/ recliner chair. Remains on 2L NC. Tolerating puree diet / thin liquids does not consume much at all. Utilized purewick today output 1300ml. Small stool noted> Apaced on tele. Edematous ankles +2
[2024-03-16 20:25] LABS: Troponin I 0.272 ng/ml
[2024-03-16 21:15] LABS: Glucose - Point of Care 142 mg/dl (70-99)
[2024-03-16] MEDS: LEXAPRO 10 MG PO (21:51)
[2024-03-16] MEDS: COSOPT EYE DROPS 1 DROP RIGHT EYE (21:52)
[2024-03-16] MEDS: PRED FORTE 1% EYE DROPS 2 DROP LEFT EYE (21:52)
[2024-03-16] MEDS: XALATAN OPHTHALMIC SOLUTION 1 DROP RIGHT EYE (21:52)
[2024-03-17] VITALS (18 sets, daily range): BP systolic 136–171; BP diastolic 69–123; PULSE 70; O2SAT 94–100; BMI 34.6
[2024-03-17] MEDS: ZOSYN 50 IV ×4 (02:27→19:31)
--- NOTE | 2024-03-17 04:39 | PTCARENOTE ---
Patient tolerating sips of clears and medication with apple sauce, remains on 2L O2 via NC. Turn and repositioned for comfort.
[2024-03-17 05:11] LABS: % Basophils 0.7 % (0-2); % Eosinophils 1.3 % (0-6); % Immature Granulocytes 0.4 % (0-0.5); % Lymphocytes 10.9 % (20.5-51.1); % Monocytes 9.9 % (1.7-9.3); % Neutrophils 76.8 % (42.2-75.2); Absolute Basophils 0.1 10^3/uL (0-0.2); Absolute Eosinophils 0.1 10^3/uL (0-0.7); Absolute Lymphocytes 0.9 10^3/uL (1.2-3.4); Absolute Monocytes 0.8 10^3/uL (0.1-0.6); Absolute Neutrophils 6.5 10^3/uL (1.4-6.5); Hematocrit 29.3 % (37.0-47.0); Hemoglobin 9.6 g/dL (12.0-16.0); Mean Corp Hgb Conc. 32.8 g/dL (33.0-37.0); Mean Corpuscular Hgb 29.4 pg (27.0-31.0); Mean Corpuscular Volume 89.6 fL (81.0-99.0); Mean Platelet Volume 10.8 fL (7.4-10.4); Nucleated Red Blood Cells % 0 %; Platelet Count 248 10^3/uL (130-400); Red Blood Cell Count 3.27 10^6/uL (4.20-5.40); White Blood Cell Count 8.4 10^3/uL (4.8-10.8)
[2024-03-17 05:50] LABS: Blood Urea Nitrogen 19 mg/dl (7-17); Calcium 8.4 mg/dl (8.4-10.2); Carbon Dioxide 35 mmol/L (22-30); Chloride 96 mmol/L (98-107); Estimated Creatinine Clearance 41 ml/min; Glucose 115 mg/dl (70-99); Magnesium 1.8 mg/dl (1.6-2.3); Potassium 3.1 mmol/L (3.5-5.1); Sodium 138 mmol/L (135-145); eGFR > 60.00
[2024-03-17] MEDS: PULMICORT 0.5 MG INH ×2 (07:25→20:24)
[2024-03-17 07:54] LABS: Glucose - Point of Care 125 mg/dl (70-99)
[2024-03-17] MEDS: KCL 10 MEQ PO ×2 (08:23→19:25)
[2024-03-17] MEDS: LOPRESSOR 25 MG PO ×2 (08:23→19:25)
[2024-03-17] MEDS: ELIQUIS 5 MG PO ×2 (08:23→19:25)
[2024-03-17] MEDS: ANTIFUNGAL CLEAR 1 APPLIC TOPICAL ×2 (08:24→21:08)
[2024-03-17] MEDS: NOVOLOG FLEXPEN-MODERATE RESISTANCE SC ×2 (08:31→13:27)
[2024-03-17] MEDS: KCL 270 MEQ IV ×2 (09:58→23:59)
--- NOTE | 2024-03-17 12:01 | W.PN.HOSP.TC ---
Today's Communication/Plan
-
Continue IV antibiotics
Repeat blood cultures at 9:30 PM
Assessment / Plan
Assessment / Plan
# Gram-negative septicemia -- E. coli, resistance pending
# Urinary tract infection
-Suspect that this is a urinary source as E. coli would be an unusual pulmonary finding
-Urinalysis on arrival with findings consistent of cystitis, leukocytosis and fever
-Currently on IV Zosyn for empiric coverage of aspiration pneumonia versus pneumonitis
-Suspect that her sepsis could be initiating event that led to this hospitalization
-Denies symptoms of UTI today, no fevers, leukocytosis resolved
Plan
-Continue with IV Zosyn for broad-spectrum gram-negative coverage
-Plan to repeat blood cultures x 2 at 48 hours (9:30 PM tonight)
-Resumed on oral home Lasix dose
#Acute hypoxemic respiratory failure
#Aspiration pneumonitis
-Suspect she aspirated in the context of encephalopathy from sepsis
-Has quickly improved from a respiratory standpoint, consistent with chemical pneumonitis
-Resolved
# Type II demand ischemia
# Nonobstructive CAD
-Suspect type II demand ischemia, no chest pain or ischemic ECG changes
-Home medications include beta-sundar, statin; no antiplatelets
-Sgarbossa criteria negative; Troponin trend was flat, not consistent with ACS
# Chronic HFrEF
-Likely NICM, last cath with widely patent arteries; last TTE with LVEF 35 to 40%
-Home medications include beta-sundar, loop diuretic; no MRA, SGLT2, WOJCIECH or ARB
-Appears euvolemic, do not suspect decompensation is contributing
-Continued on home regimen
# Severe s/p TAVR
-Valve examines normal, no signs of insufficiency
# COPD
-Unclear severity, no PFTs, no signs of CO2 retention on labs
-Home regimen includes budesonide, DuoNebs, as needed albuterol
-Do not think COPD exacerbation is contributing to her admission
-Continued on home regimen
# Orthostatic hypotension
-Currently on midodrine 5 mg twice daily
# S/p recent left hip replacement
DVT prophylaxis: Home Eliquis 2.5 mg twice daily
Diet: IDDSI�4, meds crushed in applesauce
CODE STATUS: full code
Anticipated Discharge: 24 - 48 hours
Subjective/Interval History
-
Date of Service: March 17, 2024
Examined at the bedside, no events overnight. She looks well, states that she feels well. Has mild abdominal discomfort, no nausea/vomiting/diarrhea. No fevers or chills today. No chest pain or shortness of breath.
Objective Data
-
Labs:
Laboratory Results
03/17/24
04:40
WBC 8.4
Hgb 9.6 L
Hct 29.3 L
Plt Count 248
Sodium 138
Potassium 3.1 L
Chloride 96 L
Carbon Dioxide 35 H
BUN 19 H
Creatinine 0.9
Glucose 115 H
Calcium 8.4
Vital Signs:
Vital Signs
Temp Pulse Resp BP Pulse Ox
97.8 F 70 17 171/97 94
03/17/24 07:58 03/17/24 11:18 03/17/24 11:18 03/17/24 11:18 03/17/24 11:18
I&O
03/16/24 03/17/24 03/18/24
06:59 06:59 06:59
Intake Total 100 / 100 680 / 680
Output Total 700 / 700 1450 / 1450
Balance -600 / -600 -770 / -770
Review of Systems
-
History Source: Patient
All other systems: Reviewed and negative
Physical Exam
-
General: No Apparent Distress, Comfortable and Obese
HEENT: Normocephalic, Atraumatic, Moist Mucous Membranes and Anicteric
Respiratory: Clear to Auscultation and Non Labored Respirations; Negative Wheezes, Rales or Rhonchi
Cardiac: Regular Rhythm and S1/S2; Negative Murmur, Rub, JVD or Gallop
GI: Soft, Nontender, Nondistended and Normal Bowel Sounds
Genito-urinary: No Costovertebral Tender and Other (No suprapubic tenderness or fullness)
Musculoskeletal: No Clubbing, No Cyanosis, No Edema and Other (No gross deformity)
Skin: Warm and Dry; Negative Rash or Jaundice
Neuro: AO x 3, Nonfocal/Grossly Intact, Central Nerve's Intact and Other (Left eyelid droop intermittent); Negative Tremors, Slurred Speech or Facial Droop
Data Reviewed
-
Labs: Labs Reviewed by me
Sepsis
Vital Signs
98.1 F, 70 bpm, 16 breaths/min, 161/76 mmHg, 96% room air
Physical Exam
Physical Exam:
RRR, normal S1 and S2, no M/G/R, cap refill <2 seconds
CTA bilaterally, good inspiratory effort
No peripheral edema
Capillary Refill
Left Upper Extremity:
Gibson Time: Less than 3 sec
Pulse Evaluation
Left Radial:
Pulse Evaluation: Present
[2024-03-17 13:23] LABS: Glucose - Point of Care 123 mg/dl (70-99)
[2024-03-17] MEDS: ZENPEP DELAYED RELEASE CAPSULE 3 CAPSULE PO (17:34)
[2024-03-17] MEDS: ZYRTEC 5 MG PO (17:35)
[2024-03-17] MEDS: LASIX 40 MG PO (17:36)
[2024-03-17] MEDS: SINGULAIR 10 MG PO (17:36)
--- NOTE | 2024-03-17 19:15 | PTCARENOTE ---
aaox2. welsh speaking only. a paced on monitor, vss. zosyn infusing. purewic intact. will monitor.
[2024-03-17 19:19] LABS: Glucose - Point of Care 189 mg/dl (70-99)
[2024-03-17] MEDS: NOVOLOG FLEXPEN-MODERATE RESISTANCE 1 UNITS SC (19:31)
[2024-03-17 21:47] LABS: Glucose - Point of Care 188 mg/dl (70-99)
[2024-03-17] MEDS: LEXAPRO 10 MG PO (23:59)
[2024-03-18] VITALS (15 sets, daily range): BP systolic 102–170; BP diastolic 57–141; BMI 34.2
[2024-03-18] MEDS: XALATAN OPHTHALMIC SOLUTION 1 DROP RIGHT EYE ×2 (00:01→20:26)
[2024-03-18] MEDS: COSOPT EYE DROPS 1 DROP RIGHT EYE ×2 (00:01→20:26)
[2024-03-18 04:18] LABS: % Basophils 0.9 % (0-2); % Eosinophils 2.8 % (0-6); % Immature Granulocytes 0.5 % (0-0.5); % Lymphocytes 16.9 % (20.5-51.1); % Monocytes 12.5 % (1.7-9.3); % Neutrophils 66.4 % (42.2-75.2); Absolute Basophils 0.1 10^3/uL (0-0.2); Absolute Eosinophils 0.2 10^3/uL (0-0.7); Absolute Lymphocytes 1.1 10^3/uL (1.2-3.4); Absolute Monocytes 0.8 10^3/uL (0.1-0.6); Absolute Neutrophils 4.3 10^3/uL (1.4-6.5); Hematocrit 30.3 % (37.0-47.0); Hemoglobin 9.9 g/dL (12.0-16.0); Mean Corp Hgb Conc. 32.7 g/dL (33.0-37.0); Mean Corpuscular Hgb 30.1 pg (27.0-31.0); Mean Corpuscular Volume 92.1 fL (81.0-99.0); Mean Platelet Volume 10.5 fL (7.4-10.4); Nucleated Red Blood Cells % 0 %; Platelet Count 234 10^3/uL (130-400); Red Blood Cell Count 3.29 10^6/uL (4.20-5.40); Red Cell Dist. Width 14.7 % (11.5-14.5); White Blood Cell Count 6.5 10^3/uL (4.8-10.8)
[2024-03-18] MEDS: ZOSYN 50 IV ×4 (04:26→20:18)
[2024-03-18 04:41] LABS: Blood Urea Nitrogen 20 mg/dl (7-17); Calcium 8.6 mg/dl (8.4-10.2); Carbon Dioxide 36 mmol/L (22-30); Chloride 98 mmol/L (98-107); Estimated Creatinine Clearance 40 ml/min; Glucose 137 mg/dl (70-99); Magnesium 1.9 mg/dl (1.6-2.3); Potassium 3.5 mmol/L (3.5-5.1); Sodium 138 mmol/L (135-145); eGFR > 60.00
[2024-03-18] MEDS: PULMICORT 0.5 MG INH ×2 (07:07→20:28)
[2024-03-18] MEDS: NOVOLOG FLEXPEN-MODERATE RESISTANCE SC ×3 (08:18→17:14)
[2024-03-18 08:25] LABS: Glucose - Point of Care 118 mg/dl (70-99)
[2024-03-18] MEDS: ELIQUIS 5 MG PO (09:11)
[2024-03-18] MEDS: LOPRESSOR 25 MG PO ×2 (09:12→20:17)
[2024-03-18] MEDS: LASIX 80 MG PO (09:12)
[2024-03-18] MEDS: ANTIFUNGAL CLEAR 1 APPLIC TOPICAL ×2 (09:12→20:17)
[2024-03-18] MEDS: KCL 10 MEQ PO ×2 (09:13→20:25)
--- NOTE | 2024-03-18 10:34 | PTCARENOTE ---
Captured VS for nightshift from [id number]. This RN was not present and cannot confirm accuracy.
--- NOTE | 2024-03-18 11:06 | CON.NEURO4 ---
Consultation - Neurology 4
-
CONSULTING PHYSICIAN: Charles Peterson MD (Neurology)
REFERRING PHYSICIAN: Hospitalist
DICTATED BY: Charles Peterson MD
DATE/TIME OF REQUEST: March 18, 2024
DATE/TIME OF CONSULTATION: March 18, 2024 1000
Reason for Consultation: Ptosis(L)
History of Present Illness:
This is a 88 year old right handed male who was admitted to the hospital with chief complaint of difficulty breathing. She gives a history of HFrEF (LVEF 35 to 40%), Atrial Fibrillation (on Eliquis), aortic stenosis s/p TAVR, COPD, CAD,
hypertension, pleural effusion, orthostatic hypotension, H/O pericardial effusion, S/P recent hip replacement that presented to the ED from [facility] with complaint of shortness of breath.
She was admitted to [facility] for rehab following a recent hip replacement(L).� She does mention that her mother has been having difficulty with swallowing more recently.� Also she was at the doctor's office yesterday within the facility, they
increased her diuretic dosage at that time.
Upon arrival to the ED had fever of 103.4 �F, was hypoxemic to 88% on room air with improvement to 99% on 6 L supplemental oxygen via nasal cannula.� Otherwise hemodynamically stable.� Labs showed WBC 16.5 with left shift, troponin 0.115, hemoglobin
10.7 with MCV 90.3, otherwise unremarkable.� Chest x-ray with signs of increased opacification of the right lung base, possible consolidation within the mid left lung.� Blood cultures x 2, viral respiratory panel were obtained in the ED.� She was
ordered cefepime and vancomycin empirically.
Following admission she was diagnosed to have uro-sepsis secondary to E. coli and placed on IV Zosyn. She also had chemical pneumonia secondary to aspiration
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
The patient does not speak Ivorian, history was obtained from ED provider as well as her daughter who was at the bedside.
Past Medical History: As above
Surgical History: TAVR appendectomy PTCA
Family History: Noncontributory
Social History: Lives at home with her family currently at rehab center in [facility]
Allergies: None
Home Medications: Addendum
Review of Symptoms:
Patient denies any fever, headache, chest pain, shortness of breath, GI or symptoms.
�Per the HPI.�All systems are reviewed negative except above.
�- Remove any of these problems that patient may have complained about in the HPI.
�- If patient is unresponsive, intubated or demented, say 'Per the HPI. I am unable to obtain a complete review of systems�because of patient's inability to provide history.'
Vital Signs:
The patient has a
Temp Pulse Resp BP Pulse Ox
36.6 C 70 14 138/77 95
Physical Exam:
The patient is afebrile, heart sounds S1 and S2 are irregular , and chest is clear to auscultation bilaterally.
Neurologic Examination:
The patient is awake, alert and oriented x 3. She is able to follow commands and answer questions appropriately. There is no aphasia or dysarthria.
On cranial nerve assessment, pupils are 3 mm on the right, round and reactive to light and accommodation. She is BLIND in her left eye left pupil 5 to 6 mm irregular nonreactive. Visual field is intact in the right eye.
Extraocular movements are intact. Mild ptosis OS
Facial sensations are intact and bilaterally symmetrical, there is no facial asymmetry. Hearing is intact bilaterally to normal conversation volume. Tongue palate and uvula are midline. Sternocleidomastoid strengths are full bilaterally.
Motor strengths are 4/5 bilateral upper and lower extremities on medical research [place] scale. There is no drift or involuntary movement noted. Deep tendon reflexes are + bilateral upper and lower extremities and Babinski is absent bilaterally.
Sensations of pain, touch, temperature and vibration are intact and bilaterally symmetrical. There was no extinction noted on double simultaneous stimulation. Coordination is intact by finger to nose bilaterally.
Romberg's and gait is unsteady. Needs assistance to stand and walk
Lab Results: See addendum
Neuro Imaging:
Impression:
Ms. DEYANIRA ARGUELLO is a 88 year old F who has presented to the hospital with (symptoms/chief complaint) of shortness of breath sepsis who had intermittent ptosis of the left eye that is blind
Differentials for the patient's presentation include:
1. Postsurgical ptosis
2. Myasthenia
3. 3rd cranial nerve palsy
Recommendations:
1. Ophthalmology evaluation
2. Acetylcholine receptor antibody
3. MuSK antibody
4. Consider Mestinon 30 mg if myasthenia panel is positive
Discussed patient care with: Hospitalist
Vital Signs and Labs
-
Vital Signs and Labs:
Vital Signs
Temp Pulse Resp BP Pulse Ox
36.6 C 70 14 138/77 95
03/18/24 11:05 03/18/24 10:00 03/18/24 10:00 03/18/24 10:00 03/18/24 10:00
Lab Results
03/18/24 04:02
03/18/24 04:02
Sodium 138 mmol/L (135-145) 03/18/24 04:02
Potassium 3.5 mmol/L (3.5-5.1) 03/18/24 04:02
BUN 20 mg/dl (7-17) H 03/18/24 04:02
Glucose 137 mg/dl (70-99) H 03/18/24 04:02
Calcium 8.6 mg/dl (8.4-10.2) 03/18/24 04:02
Djy-D-Aemaflixidl Pept 47780 pg/ml 03/15/24 05:11
Medications
-
Active Medications
Generic Name Dose Route Start Last Admin
Trade Name Freq PRN Reason Stop Dose Admin
Acetaminophen 650 mg 03/15/24 09:23
Acetaminophen 325 Mg Tablet PO 04/12/24 09:22
Q4H PRN
mild pain/fever>100
Albuterol 2 puff 03/15/24 09:53 03/15/24 19:43
Albuterol Hfa [90 Mcg/Dose] Inhaler INH 2 puff
R Q6 PRN Administration
sob/wheezing
Apixaban 5 mg 03/15/24 20:00 03/18/24 09:11
Apixaban (Eliquis) 5 Mg Tablet PO 04/12/24 19:59 5 mg
BID LOWELL Administration
Atorvastatin Calcium 20 mg 03/16/24 18:00 03/16/24 18:37
Atorvastatin (Lipitor) 20 Mg Tablet PO 04/13/24 17:59 20 mg
TUFR@1800 LOWELL Administration
Budesonide 0.5 mg 03/15/24 20:00 03/18/24 07:07
Budesonide (Pulmicort Respules) 0.5 Mg/2 Ml INH 0.5 mg
R BID LOWELL Administration
Protocol
Cetirizine HCl 5 mg 03/15/24 18:00 03/17/24 17:35
Cetirizine Hcl 10 Mg Tablet PO 04/12/24 17:59 5 mg
QPM LOWELL Administration
Dorzolamide/Timolol 1 drop 03/15/24 22:00 03/18/24 00:01
Dorzolamide/Timolol (Ophth Soln.) 10 Ml Bottle RIGHT EYE 04/12/24 21:59 1 drop
HS LOWELL Administration
Escitalopram Oxalate 10 mg 03/15/24 22:00 03/17/24 23:59
Escitalopram 10 Mg Tablet PO 04/12/24 21:59 10 mg
HS LOWELL Administration
Furosemide 80 mg 03/16/24 08:00 03/18/24 09:12
Furosemide 80 Mg Tablet PO 04/13/24 07:59 80 mg
DAILY LOWELL Administration
Furosemide 40 mg 03/15/24 16:00 03/17/24 17:36
Furosemide 40 Mg Tablet PO 04/12/24 15:59 40 mg
DAILY@1600 LOWELL Administration
Furosemide 80 mg 03/16/24 08:00 07/26/24 08:50
Furosemide 100 Mg (10 Mg/Ml) 10 Ml Vial IV 04/13/24 07:59 80 mg
DAILY LOEWLL Administration
Furosemide 40 mg 03/15/24 17:00 03/16/24 15:55
Furosemide 40 Mg (10 Mg/Ml) 4 Ml Vial IV 04/12/24 16:59 40 mg
DAILY@1600 LOWELL Administration
Piperacillin Sod/Tazobactam Sod 3.375 gram in 50 mls @ 100 mls/hr 03/15/24 14:00 03/18/24 09:13
Zosyn IV 50 mls
Q6H LOWELL Administration
Insulin Aspart 0 units 03/17/24 07:30 03/18/24 08:18
Insulin Aspart Moderate Resistance 300 Units/3 Ml Pen.Injctr SC 04/14/24 07:29 Not Given
AC LOWELL
Protocol
Latanoprost 1 drop 03/15/24 22:00 03/18/24 00:01
Latanoprost 0.005% (Ophthalmic Solution) 2.5 Ml Bottle RIGHT EYE 04/12/24 21:59 1 drop
HS LOWELL Administration
Magnesium Hydroxide 30 ml 03/15/24 09:23
Milk Of Magnesia 30 Ml Cup PO 04/12/24 09:22
DAILY PRN
if no bm x 3 days
Metoprolol Tartrate 25 mg 03/15/24 20:00 03/18/24 09:12
Metoprolol 25 Mg Regular Release Tablet PO 04/12/24 19:59 25 mg
BID LOWELL Administration
Miconazole Nitrate 1 applic 03/15/24 20:00 03/18/24 09:12
Miconazole 2% (Same As Aloe Inez) Ointment Tube TOPICAL 04/12/24 19:59 1 applic
BID LOWELL Administration
Montelukast Sodium 10 mg 03/15/24 18:00 03/17/24 17:36
Montelukast Sodium 10 Mg Tablet PO 04/12/24 17:59 10 mg
QPM LOWELL Administration
Ondansetron HCl 4 mg 03/17/24 18:28
Ondansetron 4 Mg/2 Ml Vial IV 04/14/24 18:27
Q6HPRN PRN
NAUSEA/VOMITING
Pancrelipase 3 capsule 03/15/24 18:00 03/17/24 17:34
Pancrelipase (Zenpep) Delayed Release Capsule PO 04/12/24 17:59 3 capsule
QPM LOWELL Administration
Potassium Chloride 10 meq 03/15/24 20:00 03/18/24 09:13
Potassium Chloride 10 Meq Extended Release Tablet PO 04/12/24 19:59 10 meq
BID LOWELL Administration
Prednisolone Acetate 2 drop 03/15/24 22:00 03/18/24 00:00
Prednisolone 1% (Ophthalmic Suspension) Bottle LEFT EYE 04/12/24 21:59 2 drop
HS LOWELL Administration
Sodium Biphosphate/Sodium Phosphate 118 ml 03/15/24 09:23
Fleet Phosphate Enema (Adult) 135 Ml Bottle RECTAL 04/12/24 09:22
DAILY PRN
if dulcolax is ineffective
Sodium Chloride 0 flush 03/15/24 10:00
Sodium Chloride 0.9% (Flush) Syringe IV 04/12/24 09:59
PER PROTOCOL LOWELL
Home Medications
�Medication �Instructions �Recorded
tijrav-hosopvta-pwunwnf 1 cap PO DAILY Gastrointestinal 05/30/22
36,000-114,000-180,000 unit issue
capsule,delay rel (Creon)
glipizide 5 mg tablet 5 mg PO TUFR Diabetes 12/22/22
albuterol sulfate 90 mcg/actuation 2 inh inhalation R Q6HPRN PRN 08/12/23
breath activated powder inhaler sob/wheezing
budesonide 0.5 mg/2 mL suspension 0.5 mg inhalation R BID 08/12/23
for nebulization (Pulmicort) Lung/Breathing Issues
levocetirizine 5 mg tablet 5 mg PO DAILY Allergies 08/12/23
montelukast 10 mg tablet 10 mg PO DAILY Lung/Breathing 08/12/23
Issues
potassium chloride 10 mEq 10 meq PO BID Electrolyte Repletion 08/12/23
capsule,extended release
simvastatin 40 mg tablet 40 mg PO TUFR High Cholesterol 08/12/23
bimatoprost 0.01 % eye drops 1 drp RIGHT EYE HS Eye Condition 02/07/24
(Lumigan)
dorzolamide 22.3 mg-timolol 6.8 1 drp RIGHT EYE HS Eye Condition 02/07/24
mg/mL eye drops
prednisolone acetate 1 % eye 2 drp LEFT EYE HS Eye Condition 02/07/24
drops,suspension
escitalopram oxalate 10 mg tablet 10 mg PO HS Mental Health/Anxiety 02/08/24
metoprolol tartrate 25 mg tablet 25 mg PO BID Blood Pressure 02/08/24
apixaban 2.5 mg tablet 2.5 mg PO BID Blood Clot 02/10/24
Prevention/Tx
magnesium hydroxide 400 mg/5 mL 30 ml PO DAILYPRN PRN day 4 no bm 02/10/24
oral suspension (Milk of Magnesia)
polyethylene glycol 3350 17 gram 17 g PO DAILY #30 ea 02/14/24
oral powder packet (HealthyLax)
acetaminophen 500 mg tablet 1,000 mg PO TID Pain 03/15/24
(Tylenol Extra Strength)
furosemide 40 mg tablet 40 mg PO QPM Fluid 03/15/24
Retention/Swelling
furosemide 40 mg tablet 80 mg PO DAILY Fluid 03/15/24
Retention/Swelling
ipratropium 0.5 mg-albuterol 3 mg 3 ml inhalation R Q4 03/15/24
(2.5 mg base)/3 mL nebulization Lung/Breathing Issues
soln
miconazole nitrate 2 % topical 1 applic topical BID rash under 03/15/24
cream right breast
midodrine 5 mg tablet 5 mg PO BID Blood Pressure 03/15/24
ondansetron HCl 4 mg tablet 4 mg PO Q8HPRN PRN nausea 03/15/24
prednisone 20 mg tablet 40 mg PO DAILY Anti-Inflammatory 03/15/24
sodium phosphates 19 gram-7 118 ml [place] DAILYPRN PRN day 6 no 03/15/24
gram/118 mL enema (Fleet Enema) bm, dulcolax ineffective
tramadol 50 mg tablet 50 mg PO BIDPRN PRN moderate pain 03/15/24
--- NOTE | 2024-03-18 11:13 | W.PN.HOSP.TC ---
Today's Communication/Plan
-
Follow-up repeat blood cultures
Plan for oral antibiotics and DC to STR
Assessment / Plan
Assessment / Plan
# Gram-negative septicemia -- E. coli, resistance pending
# Urinary tract infection
-Suspect that this is a urinary source as E. coli would be an unusual pulmonary finding
-Urinalysis on arrival with findings consistent of cystitis, leukocytosis and fever
-Currently on IV Zosyn for empiric coverage of aspiration pneumonia versus pneumonitis
-Suspect that her sepsis could be initiating event that led to this hospitalization
-Denies symptoms of UTI today, no fevers, leukocytosis resolved
Plan
-Continue with IV Zosyn for broad-spectrum gram-negative coverage
-Plan to repeat blood cultures x 2 at 48 hours (9:30 PM tonight)
-Plan to transition to oral cefdinir, if sensitivities permit, when cultures result
# Nausea
-Patient has been nauseous, per family, from prior to hospital stay
-Suspect it is related to her UTI and sepsis, also possibly Abx at this point
-Receiving Zofran as needed, promoting oral intake
#Acute hypoxemic respiratory failure
#Aspiration pneumonitis
-Resolved
# Type II demand ischemia
# Nonobstructive CAD
-Suspect type II demand ischemia, no chest pain or ischemic ECG changes
-Home medications include beta-sundar, statin; no antiplatelets
-Sgarbossa criteria negative; Troponin trend was flat, not consistent with ACS
# Chronic HFrEF
-Likely NICM, last cath with widely patent arteries; last TTE with LVEF 35 to 40%
-Home medications include beta-sundar, loop diuretic; no MRA, SGLT2, WOJCIECH or ARB
-Appears euvolemic, do not suspect decompensation is contributing
-Continued on home regimen, appears euvolemic
# Severe s/p TAVR
-Valve examines normal, no signs of insufficiency
# COPD
-Unclear severity, no PFTs, no signs of CO2 retention on labs
-Home regimen includes budesonide, DuoNebs, as needed albuterol
-No signs of exacerbation
# Orthostatic hypotension
-Currently on midodrine 5 mg twice daily
# S/p recent left hip replacement
DVT prophylaxis: Home Eliquis 5 mg twice daily
Diet: IDDSI�4, meds crushed in applesauce
CODE STATUS: full code
Anticipated Discharge: Within 24 hours
Subjective/Interval History
-
Date of Service: March 18, 2024
No acute events overnight. Denies any acute complaints today. Still has some nausea that she says is not much better.
Limited review of systems due to language barrier. Daughter planning to come in, will speak with her for interpretation and additional history
Objective Data
-
Labs:
Laboratory Results
03/18/24
04:02
WBC 6.5
Hgb 9.9 L
Hct 30.3 L
Plt Count 234
Sodium 138
Potassium 3.5
Chloride 98
Carbon Dioxide 36 H
BUN 20 H
Creatinine 0.9
Glucose 137 H
Calcium 8.6
Vital Signs:
Vital Signs
Temp Pulse Resp BP Pulse Ox
97.8 F 70 14 138/77 95
03/18/24 07:15 03/18/24 10:00 03/18/24 10:00 03/18/24 10:00 03/18/24 10:00
I&O
03/17/24 03/18/24 03/19/24
06:59 06:59 06:59
Intake Total 680 / 680 100 / 100 240 / 240
Output Total 1450 / 1450 1100 / 1100 450 / 450
Balance -770 / -770 -1000 / -1000 -210 / -210
Review of Systems
-
Unable to obtain full review of systems at this time due to: Language Barrier
History Source: Patient
Physical Exam
-
General: No Apparent Distress and Comfortable; Negative Pain
HEENT: Normocephalic, Atraumatic and Moist Mucous Membranes
Respiratory: Clear to Auscultation and Non Labored Respirations; Negative Wheezes, Rales or Rhonchi
Cardiac: Regular Rhythm and S1/S2; Negative Murmur, Rub, JVD or Gallop
GI: Soft, Nontender, Nondistended and Normal Bowel Sounds
Genito-urinary: Other (No tenderness to deep suprapubic palpation); Negative Costovertebral Angle Tend
Musculoskeletal: No Clubbing, No Cyanosis and Edema, Left Lower Extrem (1+, no edema contralaterally)
Skin: Warm, Dry and Normal Turgor; Negative Rash
Neuro: Awake, Alert, Oriented, Nonfocal/Grossly Intact, Central Nerve's Intact and Other (Proptosis left eye, chronic and intermittent)
Data Reviewed
-
Labs: Labs Reviewed by me
[2024-03-18 12:51] LABS: Glucose - Point of Care 146 mg/dl (70-99)
[2024-03-18] MEDS: ZOFRAN 4 MG IV (14:19)
--- NOTE | 2024-03-18 14:27 | PTCARENOTE ---
Assumed care of patient this morning. Communicated with patient using hourly sign language interpreter Saritha (#[id number]) on IPAD. Pt reported some pain to her L hip/groin but declined any pain medications stating 'I'm tired of pills.' Pt was incontinent of b/b and pericare
performed. Pt had purewick this morning but removed as her daughter reports she knows when she needs to use the bathroom. Pt has been sitting in the chair since about 1200. Pt did report she needed to use the bathroom and pt was assisted x2 to BSC.
Pt now just c/o of nausea and pt was medicated with Zofran, see MAR. Assessment, care and VS as charted.
[2024-03-18] MEDS: ZYRTEC 5 MG PO (17:05)
[2024-03-18] MEDS: SINGULAIR 10 MG PO (17:05)
[2024-03-18] MEDS: ZENPEP DELAYED RELEASE CAPSULE 3 CAPSULE PO (17:05)
[2024-03-18] MEDS: LASIX 40 MG PO (17:06)
[2024-03-18 17:25] LABS: Glucose - Point of Care 124 mg/dl (70-99)
--- NOTE | 2024-03-18 20:15 | PTCARENOTE ---
manager security, pt Salvadorean speaking- able to make basic needs known. states name correctly when asked, denies pain. APaced HR 70s, RA Sat 94%. LH IV flushed, patent. purewick intact. call boothe with patient.
[2024-03-18] MEDS: ELIQUIS 2.5 MG PO (20:17)
[2024-03-18] MEDS: LEXAPRO 10 MG PO (20:17)
[2024-03-18] MEDS: PRED FORTE 1% EYE DROPS 2 DROP LEFT EYE ×2 (20:26)
[2024-03-18 21:41] LABS: Glucose - Point of Care 155 mg/dl (70-99)
[2024-03-19] VITALS (13 sets, daily range): BP systolic 100–156; BP diastolic 62–111; PULSE 70; O2SAT 92; BMI 33.4
[2024-03-19] MEDS: ZOSYN 50 IV ×3 (03:00→14:21)
[2024-03-19 03:43] LABS: % Basophils 1.2 % (0-2); % Eosinophils 3.7 % (0-6); % Immature Granulocytes 0.6 % (0-0.5); % Lymphocytes 17.2 % (20.5-51.1); % Monocytes 11.2 % (1.7-9.3); % Neutrophils 66.1 % (42.2-75.2); Absolute Basophils 0.1 10^3/uL (0-0.2); Absolute Eosinophils 0.3 10^3/uL (0-0.7); Absolute Lymphocytes 1.2 10^3/uL (1.2-3.4); Absolute Monocytes 0.8 10^3/uL (0.1-0.6); Absolute Neutrophils 4.5 10^3/uL (1.4-6.5); Hematocrit 32.4 % (37.0-47.0); Hemoglobin 10.6 g/dL (12.0-16.0); Mean Corp Hgb Conc. 32.7 g/dL (33.0-37.0); Mean Corpuscular Hgb 30.1 pg (27.0-31.0); Mean Platelet Volume 10.6 fL (7.4-10.4); Nucleated Red Blood Cells % 0 %; Platelet Count 284 10^3/uL (130-400); Red Blood Cell Count 3.52 10^6/uL (4.20-5.40); Red Cell Dist. Width 14.6 % (11.5-14.5); White Blood Cell Count 6.8 10^3/uL (4.8-10.8)
--- NOTE | 2024-03-19 04:00 | PTCARENOTE ---
no change in pt assessment.
[2024-03-19 04:17] LABS: Blood Urea Nitrogen 20 mg/dl (7-17); Carbon Dioxide 36 mmol/L (22-30); Chloride 97 mmol/L (98-107); Estimated Creatinine Clearance 45 ml/min; Glucose 134 mg/dl (70-99); Potassium 3.8 mmol/L (3.5-5.1); Sodium 137 mmol/L (135-145); eGFR > 60.00
[2024-03-19] MEDS: PULMICORT 0.5 MG INH (07:58)
[2024-03-19] MEDS: NOVOLOG FLEXPEN-MODERATE RESISTANCE SC ×3 (08:38→16:38)
[2024-03-19] MEDS: ANTIFUNGAL CLEAR 1 APPLIC TOPICAL (08:39)
[2024-03-19] MEDS: LOPRESSOR 25 MG PO (08:39)
[2024-03-19] MEDS: KCL 10 MEQ PO (08:39)
[2024-03-19] MEDS: LASIX 80 MG PO (08:39)
[2024-03-19] MEDS: ELIQUIS 2.5 MG PO (08:39)
[2024-03-19 08:44] LABS: Glucose - Point of Care 146 mg/dl (70-99)
--- NOTE | 2024-03-19 10:16 | CM ---
Addendum entered by Gifty Vizcaino 03/19/24 14:15:
Pt accepted back at [facility] for read[facility] today
IMM verbally reviewed with dtr over phone
Transport forms on chart
Discharge Disposition- return [facility] for ST rehab via BLS
Phone- [phone] Fax- [phone]
Original Note:
CM reviewed pt with Dr Kerr- ready for dc
Pt is a ST rehab resident from [facility]- family is not paying for bed-hold
Call with dtr to review planning
Pt typically resides with her dtr and ABDON in a 3rd floor condo, no steps, elevator access
Pt ambulates with a WW and requires assistance for all ADLs
Pt only speaks Indian and has dementia, no behaviors
Dtr requesting return to [facility]
Call with admissions, will look into bed availability
if [facility] cannot accept back, dtr is requesting [facility]
SNF referrals sent via [facility]- awaiting responses
Discharge Disposition- SNF via BLS
[2024-03-19 11:57] LABS: Glucose - Point of Care 173 mg/dl (70-99)
--- NOTE | 2024-03-19 12:32 | W.PN.HOSP.TC ---
Addendum entered and electronically signed by Angie Kerr MD 03/19/24 14:10:
correction: Bactrim to complete 10 day course
Original Note:
Today's Communication/Plan
-
Medically stable for DC to SNF pending bed availability
Assessment / Plan
Assessment / Plan
Assessment:
CAUTI - present on arrival, complicated by E. Coli bacteremia
- patient had [facility] d/c recently outpatient
- continue IV Zosyn while in hospital; transition to Cefdinir when discharged to complete 2 week total course
- repeat blood cultures clearing
Nausea, multifactorial from Abx, and infection
- prn Zofran
Acute hypoxemic respiratory failure
Aspiration pneumonitis
- resolved
- ST eval: IDDSI�4, meds crushed in applesauce
Type II demand ischemia
Nonobstructive CAD
- Suspect type II demand ischemia, no chest pain or ischemic ECG changes
- Home medications include beta-sundar, statin; no antiplatelets
- Sgarbossa criteria negative; Troponin trend was flat, not consistent with ACS
Chronic HFrEF
- Likely NICM, last cath with widely patent arteries; last TTE with LVEF 35 to 40%
- Home medications include beta-sundar, loop diuretic; no MRA, SGLT2, WOJCIECH or ARB
- Appears euvolemic, do not suspect decompensation is contributing
- Continued on home regimen, appears euvolemic
Severe s/p TAVR
- Valve examines normal, no signs of insufficiency
COPD
- Unclear severity, no PFTs, no signs of CO2 retention on labs
- Home regimen includes budesonide, DuoNebs, as needed albuterol
- No signs of exacerbation
Orthostatic hypotension
-C urrently on midodrine 5 mg twice daily
S/p recent left hip replacement
DVT ppx: Eliquis
Code: Full
Anticipated Discharge: 24 - 48 hours
Subjective/Interval History
-
Date of Service: March 19, 2024
denies any new complaints
Objective Data
-
Labs:
Laboratory Results
03/19/24
03:18
WBC 6.8
Hgb 10.6 L
Hct 32.4 L
Plt Count 284 D
Sodium 137
Potassium 3.8
Chloride 97 L
Carbon Dioxide 36 H
BUN 20 H
Creatinine 0.8
Glucose 134 H
Calcium 9.0
Vital Signs:
Vital Signs
Temp Pulse Resp BP Pulse Ox
98.3 F 70 13 145/103 94
03/19/24 11:43 03/19/24 08:00 03/19/24 08:00 03/19/24 04:00 03/19/24 08:47
I&O
03/18/24 03/19/24 03/20/24
06:59 06:59 06:59
Intake Total 100 / 100 1400 / 1400
Output Total 1100 / 1100 1550 / 1550 700 / 700
Balance -1000 / -1000 -150 / -150 -700 / -700
Physical Exam
-
General: No Apparent Distress
HEENT: Normocephalic and Atraumatic
Respiratory: Negative Wheezes
Cardiac: Regular Rhythm and S1/S2
GI: Soft
Genito-urinary: No Costovertebral Tender
Neuro: AO x 3
Psych: Calm
Data Reviewed
-
Total Time Spent with Patient (in minutes): 42
Labs: Labs Reviewed by me
[2024-03-19] MEDS: TYLENOL 650 MG PO (12:56)
[2024-03-19] MEDS: ZOFRAN 4 MG IV (13:03)
--- NOTE | 2024-03-19 14:08 | W.DS.TRANS ---
DC Summary - Director Professional Services
-
Discharge Instructions:
Discharge Diagnosis/Procedures E. Coli septicemia
UTI
Aspiration pneumonitis
Diet Other diet
Additional Diets Pureed diet
Activity As tolerated
Driving Restrictions No driving
Bathing Restrictions None
Blood Work BMP in 3 days to check Potassium on Bactrim
Other Services PT,OT,ST
Instructions:
Stand-Alone Forms:
Changes to Home Medications: No
Discharge Medications:
DC Medications w/original date entered in [employer]
rhrtdz-pdncvanm-ygqsgjc 36,000-114,000-180,000 unit capsule,delay rel (Creon) 1 cap PO DAILY Gastrointestinal issue 05/30/22
glipizide 5 mg tablet 5 mg PO TUFR Diabetes 12/22/22
albuterol sulfate 90 mcg/actuation breath activated powder inhaler 2 inh inhalation R Q6HPRN PRN sob/wheezing 08/12/23
budesonide 0.5 mg/2 mL suspension for nebulization (Pulmicort) 0.5 mg inhalation R BID Lung/Breathing Issues 08/12/23
levocetirizine 5 mg tablet 5 mg PO DAILY Allergies 08/12/23
montelukast 10 mg tablet 10 mg PO DAILY Lung/Breathing Issues 08/12/23
potassium chloride 10 mEq capsule,extended release 10 meq PO BID Electrolyte Repletion 08/12/23
simvastatin 40 mg tablet 40 mg PO TUFR High Cholesterol 08/12/23
bimatoprost 0.01 % eye drops (Lumigan) 1 drp RIGHT EYE HS Eye Condition 02/07/24
dorzolamide 22.3 mg-timolol 6.8 mg/mL eye drops 1 drp RIGHT EYE HS Eye Condition 02/07/24
prednisolone acetate 1 % eye drops,suspension 2 drp LEFT EYE HS Eye Condition 02/07/24
escitalopram oxalate 10 mg tablet 10 mg PO HS Mental Health/Anxiety 02/08/24
metoprolol tartrate 25 mg tablet 25 mg PO BID Blood Pressure 02/08/24
apixaban 2.5 mg tablet 2.5 mg PO BID Blood Clot Prevention/Tx 02/10/24
magnesium hydroxide 400 mg/5 mL oral suspension (Milk of Magnesia) 30 ml PO DAILYPRN PRN day 4 no bm 02/10/24
polyethylene glycol 3350 17 gram oral powder packet (HealthyLax) 17 g PO DAILY #30 ea 02/14/24
acetaminophen 500 mg tablet (Tylenol Extra Strength) 1,000 mg PO TID Pain 03/15/24
furosemide 40 mg tablet 40 mg PO QPM Fluid Retention/Swelling 03/15/24
furosemide 40 mg tablet 80 mg PO DAILY Fluid Retention/Swelling 03/15/24
ipratropium 0.5 mg-albuterol 3 mg (2.5 mg base)/3 mL nebulization soln 3 ml inhalation R Q4 Lung/Breathing Issues 03/15/24
miconazole nitrate 2 % topical cream 1 applic topical BID rash under right breast 03/15/24
midodrine 5 mg tablet 5 mg PO BID Blood Pressure 03/15/24
ondansetron HCl 4 mg tablet 4 mg PO Q8HPRN PRN nausea 03/15/24
prednisone 20 mg tablet 40 mg PO DAILY Anti-Inflammatory 03/15/24
sodium phosphates 19 gram-7 gram/118 mL enema (Fleet Enema) 118 ml [place] DAILYPRN PRN day 6 no bm, dulcolax ineffective 03/15/24
sulfamethoxazole 800 mg-trimethoprim 160 mg tablet (Bactrim DS) 1 tab PO BID #10 tabs 03/19/24
tramadol 50 mg tablet 50 mg PO BIDPRN PRN moderate pain #10 tabs 03/19/24
Home Medication Changes
Pending Results: No
Total time spent discharging patient (in min): 41
[2024-03-19] MEDS: LASIX 40 MG PO (16:25)
[2024-03-19 16:47] LABS: Glucose - Point of Care 135 mg/dl (70-99)
--- NOTE | 2024-03-19 17:41 | PTCARENOTE ---
Pt for d/c to [facility]. IV and monitor equipment removed. Daughter at bedside. D/C via EMS.
[2024-03-21 16:36] LABS: MuSK IgG Ab CBA IFA, Serum <1:10 (<1:10)
== END 2024-03-19 17:40 | DRG 698 ==
LOC: IMU 08:38
PROVIDERS: Emergency Medicine; ADMITTING PHYSICIAN Internal Medicine; ATTENDING PHYSICIAN Internal Medicine; CONSULT PHYSICIAN Psychiatry & Neurology Neurology; EMERGENCY PHYSICIAN Emergency Medicine; FAMILY PHYSICIAN Family Medicine
DX: T83.511A Infection and inflammatory reaction due to indwelling urethral catheter, initial encounter (principal); A41.51 Sepsis due to Escherichia coli [E. coli]; G93.41 Metabolic encephalopathy; J69.0 Pneumonitis due to inhalation of food and vomit; J96.01 Acute respiratory failure with hypoxia; I50.22 Chronic systolic (congestive) heart failure; I24.89 Other forms of acute ischemic heart disease; N39.0 Urinary tract infection, site not specified; I11.0 Hypertensive heart disease with heart failure; I35.0 Nonrheumatic aortic (valve) stenosis; Z95.2 Presence of prosthetic heart valve; I25.10 Atherosclerotic heart disease of native coronary artery without angina pectoris; Y84.6 Urinary catheterization as the cause of abnormal reaction of the patient, or of later complication, without mention of misadventure at the time of the procedure; I95.1 Orthostatic hypotension; H02.402 Unspecified ptosis of left eyelid; R11.0 Nausea; Z96.641 Presence of right artificial hip joint; Z98.890 Other specified postprocedural states; Z86.79 Personal history of other diseases of the circulatory system; Z90.49 Acquired absence of other specified parts of digestive tract; Z85.828 Personal history of other malignant neoplasm of skin
CPT/HCPCS: 71045; 71250; 74230; 80048; 80053; 81003; 81015; 82962; 83605; 83735; 83880; 84145; 84484; 85025; 86041; 86366; 87040; 87077; 87086; 87149; 87186; 87205; 87449; 87502; 87641; 87811; 87899; 92610; 92611; 93005; 94640; 96361; 96365; 96375; 97116; 97163; 97167; 97530; 97535; 99285

== ENCOUNTER → 2024-03-22 10:14 | Outpatient (REF) | payer OTHER, SELFPAY ==
[2024-03-22 11:54] LABS: Blood Urea Nitrogen 34 mg/dl (7-17); Calcium 9.3 mg/dl (8.4-10.2); Carbon Dioxide 31 mmol/L (22-30); Chloride 95 mmol/L (98-107); Glucose 217 mg/dl (70-99); Sodium 135 mmol/L (135-145); eGFR 30.83
== END ==
LOC: OLABP 10:14
PROVIDERS: ATTENDING PHYSICIAN Family Medicine
DX: E11.9 Type 2 diabetes mellitus without complications (principal); I11.0 Hypertensive heart disease with heart failure; I25.10 Atherosclerotic heart disease of native coronary artery without angina pectoris; J44.9 Chronic obstructive pulmonary disease, unspecified; Z95.0 Presence of cardiac pacemaker; I48.0 Paroxysmal atrial fibrillation; I50.23 Acute on chronic systolic (congestive) heart failure; G93.41 Metabolic encephalopathy; J18.9 Pneumonia, unspecified organism; S72.002D Fracture of unspecified part of neck of left femur, subsequent encounter for closed fracture with routine healing
CPT/HCPCS: 80048

== ENCOUNTER → 2024-03-23 11:45 | Outpatient (REF) | payer OTHER, SELFPAY ==
[2024-03-23 12:08] LABS: % Basophils 0.3 % (0-2); % Eosinophils 0.1 % (0-6); % Immature Granulocytes 0.8 % (0-0.5); % Lymphocytes 7.3 % (20.5-51.1); % Monocytes 5.2 % (1.7-9.3); % Neutrophils 86.3 % (42.2-75.2); Absolute Basophils 0.1 10^3/uL (0-0.2); Absolute Immature Granulocytes 0.2 10^3/uL (0-0.05); Absolute Lymphocytes 1.3 10^3/uL (1.2-3.4); Absolute Monocytes 0.9 10^3/uL (0.1-0.6); Absolute Neutrophils 15.3 10^3/uL (1.4-6.5); Hematocrit 27.4 % (37.0-47.0); Hemoglobin 9.3 g/dL (12.0-16.0); Mean Corp Hgb Conc. 33.9 g/dL (33.0-37.0); Mean Corpuscular Hgb 29.8 pg (27.0-31.0); Mean Corpuscular Volume 87.8 fL (81.0-99.0); Mean Platelet Volume 10.9 fL (7.4-10.4); Nucleated Red Blood Cells % 0 %; Platelet Count 377 10^3/uL (130-400); Red Blood Cell Count 3.12 10^6/uL (4.20-5.40); Red Cell Dist. Width 15.4 % (11.5-14.5); White Blood Cell Count 17.7 10^3/uL (4.8-10.8)
[2024-03-23 12:24] LABS: ALT (SGPT) 15 U/L (0-35); AST (SGOT) 28 U/L (14-36); Albumin 3.1 g/dl (3.5-5.0); Alkaline Phosphatase 71 U/L (38-126); Blood Urea Nitrogen 40 mg/dl (7-17); Calcium 9.4 mg/dl (8.4-10.2); Carbon Dioxide 32 mmol/L (22-30); Chloride 97 mmol/L (98-107); Glucose 122 mg/dl (70-99); Potassium 4.5 mmol/L (3.5-5.1); Sodium 136 mmol/L (135-145); Total Bilirubin 0.2 mg/dl (0.2-1.3); Total Protein 5.3 g/dl (6.3-8.2); eGFR 30.83
== END ==
LOC: OLABP 11:45
PROVIDERS: ATTENDING PHYSICIAN Student in an Organized Health Care Education/Training Program
DX: I95.1 Orthostatic hypotension (principal); J69.0 Pneumonitis due to inhalation of food and vomit; E11.9 Type 2 diabetes mellitus without complications; J44.9 Chronic obstructive pulmonary disease, unspecified; I48.0 Paroxysmal atrial fibrillation
CPT/HCPCS: 36415; 80053; 85025

== ENCOUNTER → 2024-03-26 12:07 | Outpatient (REF) | payer OTHER, MEDICARE, SELFPAY ==
[2024-03-26 15:01] LABS: % Basophils 0.2 % (0-2); % Eosinophils 0.1 % (0-6); % Immature Granulocytes 0.6 % (0-0.5); % Lymphocytes 9.4 % (20.5-51.1); % Monocytes 5.6 % (1.7-9.3); % Neutrophils 84.1 % (42.2-75.2); Absolute Immature Granulocytes 0.1 10^3/uL (0-0.05); Absolute Lymphocytes 1.4 10^3/uL (1.2-3.4); Absolute Monocytes 0.8 10^3/uL (0.1-0.6); Absolute Neutrophils 12.1 10^3/uL (1.4-6.5); Hematocrit 32.5 % (37.0-47.0); Hemoglobin 10.5 g/dL (12.0-16.0); Mean Corp Hgb Conc. 32.3 g/dL (33.0-37.0); Mean Corpuscular Hgb 29.6 pg (27.0-31.0); Mean Corpuscular Volume 91.5 fL (81.0-99.0); Mean Platelet Volume 10.6 fL (7.4-10.4); Nucleated Red Blood Cells % 0 %; Platelet Count 401 10^3/uL (130-400); Red Blood Cell Count 3.55 10^6/uL (4.20-5.40); Red Cell Dist. Width 15.2 % (11.5-14.5); White Blood Cell Count 14.4 10^3/uL (4.8-10.8)
[2024-03-26 16:55] LABS: ALT (SGPT) 34 U/L (0-35); AST (SGOT) 49 U/L (14-36); Albumin 3.4 g/dl (3.5-5.0); Alkaline Phosphatase 74 U/L (38-126); Blood Urea Nitrogen 40 mg/dl (7-17); Calcium 9.2 mg/dl (8.4-10.2); Carbon Dioxide 28 mmol/L (22-30); Chloride 96 mmol/L (98-107); Glucose 144 mg/dl (70-99); Potassium 4.5 mmol/L (3.5-5.1); Sodium 133 mmol/L (135-145); Total Bilirubin 0.4 mg/dl (0.2-1.3); Total Protein 5.7 g/dl (6.3-8.2); eGFR 43.54
== END ==
LOC: OLABP 12:07
PROVIDERS: ATTENDING PHYSICIAN Family Medicine
DX: E11.9 Type 2 diabetes mellitus without complications (principal); I11.0 Hypertensive heart disease with heart failure; I25.10 Atherosclerotic heart disease of native coronary artery without angina pectoris; J44.9 Chronic obstructive pulmonary disease, unspecified; Z95.0 Presence of cardiac pacemaker; I48.0 Paroxysmal atrial fibrillation; I50.23 Acute on chronic systolic (congestive) heart failure; G93.41 Metabolic encephalopathy; J18.9 Pneumonia, unspecified organism; S72.002D Fracture of unspecified part of neck of left femur, subsequent encounter for closed fracture with routine healing
CPT/HCPCS: 80053; 85025